=== PATIENT | male | born 1990 | race Caucasian/White ===

== ENCOUNTER 2017-04-02 10:47 | Inpatient (IN) | payer SELFPAY ==
[~2017-04-02] VITALS: Ht 182.9 cm; Wt 71.2 kg
[2017-04-02] VITALS (8 sets, daily range): BP systolic 110–121; BP diastolic 44–60; PULSE 105–128; RESP 16–26; O2SAT 98–100
--- NOTE | 2017-04-02 10:57 | ED.REPORT ---
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 He is a former IV drug user who last used 2 years ago. He denies any recent trauma. He has no history of similar symptoms. His partner who is in the room states that he has been finding evidence of IV drug use in his home recently such as a lot of dirty needles that are not easily explainable. The patient states the lee on his legs are caused by mosquitos although the family member does not have any of the same lee. Nursing Notes Stated Complaint: INFECTION ON RT FOOT Chief Complaint: General Complaint Nursing Notes Reviewed: Yes Allergies: Coded Allergies: No Known Allergies (Unverified , 04/02/17) Scheduled Fluticasone/Salmeterol (Advair Hfa 115-21 Mcg Inhaler) 12 Gm Hfa.aer.ad 1 PUFF IH BID Scheduled PRN Albuterol HFA (Proair HFA) 8.5 Gm Hfa.aer.ad 2 PUFFS INHALATION Q4H PRN PRN For Shortness of Breath General Time Seen by MD: 10:54 Chief Complaint Other (R ankle pain) Hx Obtained From: Patient Arrived By: Walk-in Onset Occurred: 2 days ago Symptom Duration: Since onset Location: : Ankle right Quality: Painful Severity: Current: Moderate Severity: Maximum: Moderate Similar Sx Previous: No Past Medical History Past Medical History Asthma IVDA last used 2016 Past Surgical History None reported Smoking History Unknown if Ever Smoker Social History Drug Use: In recovery, IV drugs Ambulatory Status Independent Review of Systems Musculoskeletal: Reports: Extremity pain, Joint pain Skin: Reports Rash, Reports Swelling Complete sys rev & neg: except as marked. Physical Exam Initial Vital Signs Vital Signs (First) Date Time Temp Pulse Resp B/P Pulse Ox O2 Delivery O2 Flow Rate FiO2 04/02/17 10:50 36.8 118 16 113/60 99 Room Air Initial VS: Reviewed, Vital signs abnormal Head / Eyes: Atraumatic, Normocephalic ENT: Mucous membranes moist, Conjunctiva normal, No scleral icterus Neck: Supple, Full range of motion Respiratory: Breath sounds normal, Clear to auscultation, No respiratory distress Abdomen / GI: Soft, Non-tender Neurologic: Alert, Oriented, Nonfocal Psychiatric: Mood/affect normal, Behavior normal, Normal thought content Lower Extremity / Pelvis / MS: No deformity, Neurologic intact, Vascular intact Tib/fib normal Ankle / Foot: No deformity, Neurologic intact, Vascular intact R ankle: Severe pain to touch Severe pain with ROM Diffusely swollen and erythematous Subacute abrasions over posterior ankle Base of ankle with minimal clear yellow discharge - sent for culture General/Constitutional: Awake, Alert, Cooperative, Not toxic appearing Distress / Hydration: Positive: Distress mild Appearance / Presentation: Positive: Ill appearing/not toxic, In pain, Uncomfortable Cardiovascular: Regular rhythm, Heart sounds NL, No murmurs Heart Rate / Rhythm: Positive: Tachycardia Interpretation & Diagnostics Interpretation & Diagnostics: US right ankle: No abscess - radiologist read pending Lab Results Interpretation Result Diagram: 04/02/17 1126 04/02/17 1126 Test 04/02/17 11:26 04/02/17 12:30 White Blood Count 24.4th/mm3 (3.8-10.1) Red Blood Count 3.76mil/mm3 (4.40-5.80) Hemoglobin 11.8g/dL (13.8-17.2) Hematocrit 33.6% (41.0-50.0) Mean Corpuscular Volume 89.4fL (81-100) Mean Corpuscular Hemoglobin 31.4pg (27.0-35.0) Mean Corpuscular Hemoglobin Concent 35.1% (32.0-37.0) Red Cell Distribution Width 13.8% (12.3-15.4) Platelet Count 265bil/L (150-400) Neutrophils (%) (Auto) 85% (40-74) Lymphocytes (%) (Auto) 3% (14-46) Monocytes (%) (Auto) 8% (4-12) Eosinophils (%) (Auto) 0% (0-5) Basophils (%) (Auto) 0% (0-3) Band Neutrophils % 4% (1-5) Erythrocyte Sedimentation Rate 63mm/hr (0-15) Sodium Level 127mEq/L (134-144) Potassium Level 4.1mEq/L (3.5-5.2) Chloride Level 88mEq/L (97-108) Carbon Dioxide Level 17mmol/L (18-29) Blood Urea Nitrogen 13mg/dL (6-20) Creatinine 0.48mg/dL (0.76-1.27) Estimat Glomerular Filtration Rate 226mL/min (>59) Glucose Level 115mg/dL (60-99) Osmolality 295 (275-300) Calcium Level 8.8mg/dL (8.5-10.1) Total Bilirubin 0.9mg/dL (0.0-1.2) Aspartate Amino Transf (AST/SGOT) 41U/L (0-50) Alanine Aminotransferase (ALT/SGPT) 51U/L (0-44) Alkaline Phosphatase 230U/L (25-150) C-Reactive Protein 23.2mg/dL (0.0-0.5) Total Protein 6.7g/dL (6.4-8.4) Albumin 2.9g/dL (3.4-5.0) Thyroid Stimulating Hormone (TSH) 0.400uIU/mL (0.450-4.500) Urine Color Yellow (YELLOW) Urine Appearance Clear (CLEAR,HAZY) Urine pH 6.0 (5.0-8.0) Urine Specific [place] 1.010 (1.003-1.035) Urine Protein 100mg/dL (NEG,TRACE) Urine Glucose (UA) Negativemg/dL (NEGATIVE) Urine Ketones Negativemg/dL (NEGATIVE) Urine Occult Blood Moderate (NEGATIVE) Urine Nitrite Negative (NEGATIVE) Urine Bilirubin Small (NEGATIVE) Urine Ictotest Pos (Negative) Urine Urobilinogen 4.0mg/dL (NORMAL) Urine Leukocyte Esterase Negative (NEGATIVE) Urine RBC 0-2/hpf (0-2) Urine WBC 0-5/hpf (0-5) Urine Epithelial Cells Occasional/hpf (NONE-MOD) Urine Crystals None seen (NONE SEEN) Urine Bacteria Few/hpf (NONE-FEW) Urine Hyaline Casts None/lpf (NONE) Urine Granular Casts None seen (NONE SEEN) Urine Waxy Casts None seen (NONE SEEN) Urine Red Blood Cell Casts None seen (NONE SEEN) Urine White Blood Cell Casts None seen (NONE SEEN) Urine Mucus None seen (None Seen) Urine Trichomonas None seen (NONE SEEN) Urine Yeast None (NONE SEEN) Urinalysis Comment None Urine Culture Reflexed Not indicated Hold Urine Received (Received) Lab Results Interpretation: Urine tox positive for: THC, methamphetamine, opiates, TCA ECG Interpretation ECG Interpretation: Sinus tachycardia rate 109 Early repol Time: 12:22 Interpreted by: ED physician Normal ECG Interpretation: No acute ischemic changes X-Ray Interpretation Xray Interpretation: IMPRESSION: Lateral soft tissue swelling. Dictated by: Real Magallanes M.D. on 04/02/2017 at 11:53 Approved by: Real Magallanes M.D. on 04/02/2017 at 11:59 X-Ray Ordered: Ankle right Interpretation / Wet Read by: Interpret - Radiologist Re-Eval/Medical Decision Med Decision/Clinical Course 26-year-old male history of IV drug use presenting with right ankle pain 4 days. No trauma. He has diffuse cellulitis and edema around his right ankle. There is range of motion tenderness. His white blood cell count is significantly elevated as well as his lactate. He denied any IV drug use. Last 2 years however his urine drug screen is positive for opiates and amphetamines. I discussed with orthopedics who recommended I discussed with podiatry. They will evaluate patient and determine the need for arthrocentesis. In the meantime we will admit on vancomycin and Zosyn with blood cultures sent. He is tachycardic otherwise vital signs stable. He was given 2 L normal saline. Admitted to hospitalist service. Re-Evaluation/Progress : Time of Eval: 11:10 Re-Evaluation/Progress Note: Pt rechecked. Informed pt of need for admission. Pt understands and agrees with plan for admission. All questions addressed. Consultation #1: Referral / Consult Name: Tyler Penn DO Consulted With: Orthopedic Call Returned at: 12:26 Baseball Coach: Agrees with eval, Agrees with plan Note: Will consult. Recommends IV antibiotics and podiatry consult. Consultation #2: Referral / Consult Name: Armando Mcdaniels DPM Call Returned at: 12:36 Baseball Coach: Agrees with eval, Agrees with plan Note: Podiatry will see pt today. Consultation #3: Referral / Consult Name: Lia Cox DO Consulted With: Hospitalist Call Returned at: 12:57 Baseball Coach: Will see patient, Agrees with eval, Agrees with plan, Accepts admit Counseled Regarding: Diagnosis, Lab results, Need for admission Discharge & Departure Impression: Primary Impression: Sepsis Sepsis type: sepsis due to unspecified organism Qualified Code: A41.9 - Sepsis, unspecified organism Additional Impressions: Cellulitis of right ankle Lactic acidosis Methamphetamine abuse Marijuana use Opioid abuse Disposition: ADMITTED TO HOSPITAL Discharge Condition All VS Reviewed: Yes Condition: Stable Referrals: Rakel Loomis (PCP) Scribe Attestation Portions of this note were transcribed by Dileep Campuzano. I, Dr. Randall personally performed the history, physical exam and medical decision-making; I reviewed and confirmed the accuracy of the information in the transcribed note. copies to: Rakel Loomis Ben M MD Apr 02, 2017 10:57 DILEEP CAMPUZANO Apr 02, 2017 11:04
[2017-04-02] MEDS ORDERED: 0.9% Sodium Chloride 1,000 ML IV ONE ×3 (11:08→16:15)
[2017-04-02] MEDS ORDERED: Ondansetron 2 mg/mL 2 mL Inj IVPUSH PRN ×2 (11:10→13:00)
[2017-04-02 11:44] LABS: EOSINOPHILS % (AUTO) 0 % (0-5)
[2017-04-02 11:47] LABS: BASOPHILS % (AUTO) 0 % (0-3); Mean Corpuscular Hemoglobin 31.4 pg (27.0-35.0); Mean Corpuscular Volume 89.4 fL (81-100); Platelet Count 265 bil/L (150-400)
--- NOTE | 2017-04-02 12:01 | DRSVH ---
PROCEDURE: X-RAY RIGHT ANKLE, MINIMUM THREE VIEWS ([id number]) INDICATIONS: R ankle infection r/o osteo TECHNIQUE: 3 views of the ankle were acquired. COMPARISON: None. FINDINGS: Bones: No fractures or dislocations. Ankle mortise is normally aligned. No suspicious bony lesions . Soft tissues: No tibiotalar joint effusion. Achilles tendon appears normal. Lateral soft tissue sw elling. IMPRESSION: Lateral soft tissue swelling. Dictated by: Real Magallanes M.D. on 04/02/2017 at 11:53 Approved by: Real Magallanes M.D. on 04/02/2017 at 11:59
[2017-04-02] MEDS ORDERED: Piperacillin-Tazo 3.375 Gm Inj 3.375 GM in Dextrose 5% Minibag Plus 50 ML IV ONE (12:25)
[2017-04-02] MEDS ORDERED: Vancomycin Dose per Pharmacist XX ONE (12:25)
[2017-04-02 12:37] LABS: MONOCYTES % (AUTO) 8 % (4-12); NEUTROPHILS % (AUTO) 85 % (40-74)
[2017-04-02] MEDS ORDERED: Vancomycin Inj 1,500 MG in 0.9% Sodium Chloride 500 ML IV ONE (12:50)
[2017-04-02] MEDS ORDERED: Alum-Mag Hydrox-Simeth 30 mL Suspension PO PRN (13:00)
[2017-04-02] MEDS ORDERED: Polyethylene Glycol (PEG) 17 Gm Powder PO PRN (13:25)
[2017-04-02] MEDS ORDERED: FLUT12AE4 IH (13:35)
[2017-04-02] MEDS ORDERED: ALBU8.5H2 INHALATION (13:35)
--- NOTE | 2017-04-02 13:43 | DRSVH ---
PROCEDURE: US EXTREMITY SONOGRAM LIMITED ([id number]) INDICATIONS: R ankle swelling r/o abscess TECHNIQUE: Real-time scanning was performed of the right ankle, with image documentation. COMPARISON: None. FINDINGS: Mild edema and no visualized fluid collection. IMPRESSION: Mild edema. Dictated by: Td OSBORN Interpreted: Real Magallanes MD on 04/02/2017 at 12:04 Approved by: Real Magallanes M.D. on 04/02/2017 at 13:40
[2017-04-02 13:57] LABS: APPEARANCE,URINE CLEAR (CLEAR,HAZY); COLOR,URINE YELLOW (YELLOW)
[2017-04-02 13:58] LABS: OCCULT BLOOD,URINE MODERATE (NEGATIVE)
[2017-04-02 13:59] LABS: ICTOTEST,URINE POS (Negative)
--- NOTE | 2017-04-02 16:57 | PCM.CONPHA ---
Subjective Requesting Provider: Lia Cox DO Reason for Pharmacy Consult: Vancomycin Dosing Assessment/Plan Assessment/Plan Pharmacy to dose vancomycin for cellulitis in IVDA with goal trough 10-15: Ht 72 inches Wt 70.4K Creatinine=0.48 (0.6 used for calculations) Estimated creatinine tdlnbquaj=394hc/min ([facility]) WBC=24.4 LA=5.3 CRP 23.2 TMAX=37.4 The patient received Vancomycin 1500mg IV at 1330 in the ER. Subsequent dosing will be vancomycin 1250mg IV q 8 hours beginning at 2130. A trough has been ordered for 04/02/17 at 1230 prior to the 4th dose. The floor pharmacist will evaluate this level and adjust accordingly. Roxie Edmonds [facility] ED Apr 02, 2017 16:57
[2017-04-02 17:21] LABS: OSMOLALITY, URINE 445 mOs/kH2O (250-1200)
[2017-04-02] MEDS ORDERED: Lidocaine 2% 20 mg/mL 5 mL Cardiac Syringe ONE ×2 (17:29→17:36)
--- NOTE | 2017-04-02 17:37 | PCM.CHPPOD ---
Subjective Date of service Apr 02, 2017 History of Present Illness 26 year old male admitted to [facility] with cellulitis and pain of the right posterior ankle. patient denies trauma, states that he has had several mosquito bites to his ankle and leg which he has been itching recently. Patient states that this has been occurring for the past three days and progressively worsening. he complains of severe pain to his right ankle. xray taken in the ED reveals possible effusion of the posterior ankle. MRI was attempted however patient had a panic attack and was unable to complete the exam. Allergy Allergies: Coded Allergies: No Known Allergies (Unverified , 04/02/17) Medications Albuterol HFA (Proair HFA) 8.5 Gm Hfa.aer.ad 2 PUFFS INHALATION Q4H PRN PRN For Shortness of Breath Fluticasone/Salmeterol (Advair Hfa 115-21 Mcg Inhaler) 12 Gm Hfa.aer.ad 1 PUFF IH BID Past Medical History Surgeries: No Medical History: Surgical History: Social History Hx Alcohol Use: Yes Alcoholic Drinks Per Day: states drinks 1/5 daily Hx Substance Use: Yes (IV heroin, meth) Smoking Status: Current Every Day Smoker Podiatry Consult Exam Vital Signs Vital Sign - Last Date Time Temp Pulse Resp B/P Pulse Ox O2 Delivery O2 Flow Rate FiO2 04/02/17 16:44 37.0 105 16 117/59 100 Room Air Result Diagram: 04/02/17 1126 04/02/17 1126 Lab Test 04/02/17 11:26 04/02/17 12:30 04/02/17 13:28 04/02/17 15:43 White Blood Count 24.4th/mm3 (3.8-10.1) Red Blood Count 3.76mil/mm3 (4.40-5.80) Hemoglobin 11.8g/dL (13.8-17.2) Hematocrit 33.6% (41.0-50.0) Mean Corpuscular Volume 89.4fL (81-100) Mean Corpuscular Hemoglobin 31.4pg (27.0-35.0) Mean Corpuscular Hemoglobin Concent 35.1% (32.0-37.0) Red Cell Distribution Width 13.8% (12.3-15.4) Platelet Count 265bil/L (150-400) Neutrophils (%) (Auto) 85% (40-74) Lymphocytes (%) (Auto) 3% (14-46) Monocytes (%) (Auto) 8% (4-12) Eosinophils (%) (Auto) 0% (0-5) Basophils (%) (Auto) 0% (0-3) Band Neutrophils % 4% (1-5) Erythrocyte Sedimentation Rate 63mm/hr (0-15) Sodium Level 127mEq/L (134-144) Potassium Level 4.1mEq/L (3.5-5.2) Chloride Level 88mEq/L (97-108) Carbon Dioxide Level 17mmol/L (18-29) Blood Urea Nitrogen 13mg/dL (6-20) Creatinine 0.48mg/dL (0.76-1.27) Estimat Glomerular Filtration Rate 226mL/min (>59) Glucose Level 115mg/dL (60-99) Osmolality 295 (275-300) Calcium Level 8.8mg/dL (8.5-10.1) Total Bilirubin 0.9mg/dL (0.0-1.2) Aspartate Amino Transf (AST/SGOT) 41U/L (0-50) Alanine Aminotransferase (ALT/SGPT) 51U/L (0-44) Alkaline Phosphatase 230U/L (25-150) C-Reactive Protein 23.2mg/dL (0.0-0.5) Total Protein 6.7g/dL (6.4-8.4) Albumin 2.9g/dL (3.4-5.0) Thyroid Stimulating Hormone (TSH) 0.400uIU/mL (0.450-4.500) Urine Color Yellow (YELLOW) Urine Appearance Clear (CLEAR,HAZY) Urine pH 6.0 (5.0-8.0) Urine Specific [place] 1.010 (1.003-1.035) Urine Protein 100mg/dL (NEG,TRACE) Urine Glucose (UA) Negativemg/dL (NEGATIVE) Urine Ketones Negativemg/dL (NEGATIVE) Urine Occult Blood Moderate (NEGATIVE) Urine Nitrite Negative (NEGATIVE) Urine Bilirubin Small (NEGATIVE) Urine Ictotest Pos (Negative) Urine Urobilinogen 4.0mg/dL (NORMAL) Urine Leukocyte Esterase Negative (NEGATIVE) Urine RBC 0-2/hpf (0-2) Urine WBC 0-5/hpf (0-5) Urine Epithelial Cells Occasional/hpf (NONE-MOD) Urine Crystals None seen (NONE SEEN) Urine Bacteria Few/hpf (NONE-FEW) Urine Hyaline Casts None/lpf (NONE) Urine Granular Casts None seen (NONE SEEN) Urine Waxy Casts None seen (NONE SEEN) Urine Red Blood Cell Casts None seen (NONE SEEN) Urine White Blood Cell Casts None seen (NONE SEEN) Urine Mucus None seen (None Seen) Urine Trichomonas None seen (NONE SEEN) Urine Yeast None (NONE SEEN) Urinalysis Comment None Urine Culture Reflexed Not indicated Hold Urine Received (Received) Urine Osmolality 445mOs/kH2O (250-1200) Lactic Acid Level 5.1mmol/L (0.4-2.0) Exam General: Alert, Oriented X3, Cooperative, Mild Distress Neuro: Strength at 5/5 x4 ext, Sensation Intact Lower Extremities: Right: Edema localized Extremity warm Lower Extremity Pulses: Palpable: Right Dorsalis Pedis Right Posterior Tibal Podiatry WOUND : Wound Location/Description severe edema and erythema of the posterior right ankle with severe tenderness to palpation, fluctuance noted deep to the achilles tendon within Kegers triangle. no open ulcer noted. multiple superficial excoriations consistent with bug bites noted. Assessment & Plan Assessment abscess and cellulitis of the right posterior ankle Problems: Plan Detailed evaluation preformed at bedside. Patient provided verbal consent for bedside incision and drainage. 6 ml 2% lidocaine plain was infiltrated to the right posterior medial ankle and kegers triangle. A 2 cm stab incision was made to the right medial posterior ankle and approximately 3ml of purulent discharge was noted. wound culture taken. wound flushed with normal saline and packed with 1/4 inch iodoform gauze dressed with kerlix, 4x4 gauze and a loosely applied yadi wrap. non weight bearing right LE. plan for OR tomorrow AM for incision and drainage, please keep NPO after midnight. continue broad spectrum antibiotics. podiatry will follow daily. Armando Mcdaniels DPM Apr 02, 2017 17:37
[2017-04-02] MEDS: Ketorolac 15 mg/mL Inj IVPUSH PRN (18:05)
[2017-04-02] MEDS: Heparin 5,000 Unit/mL Inj SUBQ SCH (18:05)
[2017-04-02] MEDS: 0.9% Sodium Chloride 1,000 ML IV SCH ×2 (18:06→21:06)
--- NOTE | 2017-04-02 19:41 | NUR ---
ADMIT PT comes to the floor at 1545. He is awake, alert and oriented. RA, SL and in no acute distress. One liter of NS was given wide open and then NS at 150/hr started after that. Telemetry SR to ST upon admit to the floor. MRI Shortly after coming pt was taken to MRI-got a call from them that pt is having anxiety issues due to clastrophobia, called and received orders for IV ativan from DR. Cox, but by that time pt was already brought back to his room. Pt agreeable to one more attempt to try MRI with iv ativan given before, but he does not guarantee he will "not freak out". PODIATRY Podiatry here to try to drain an abscess on rt. ankle-after evaluation, decision was made to take the pt to surgery for I&D in am, pt aware of the plan and of NPO after midnight status.
--- NOTE | 2017-04-02 19:45 | PCM.HPMED ---
Subjective Date of Service Apr 02, 2017 Primary Provider: Admitting Physician: Lia Cox DO Primary Care Physician: Breanna Attending Physician: Lia Cox DO Admit Status: From the Emergency Department, Admit to Blue Team Chief Complaint: Swollen right ankle History of Present Illness: 26-year-old thin white male with past medical history of asthma, IV drug use for 2 months two years ago this presenting to the ER with swollen right ankle. He has severe erythema, tenderness associated with it. He states that it has been ongoing for 3 days and getting worse. He cannot walk at home and he using crutches to get around. He states that he had no fevers or chills. His appetite is good, he has a little bit of a headache. He states that after receiving pain medication in the ER his leg pain has come down to 6 out of 10. He denies anxiety chest pain, dyspnea, GI's problems, urinary symptoms, dizziness. He has several excoriations and healed up lee on both of his lower legs. He states that this is from fleas and mosquitoes after he camped. He also has a spot on the lateral achilles area of his right foot where a pruritic lesion can be seen. Patient denies any infections like this before. He also denies continued use of IV drugs. He does admit to smoking meth and marijuana recently but denies IV drug use of any kind. He is endorsing drinking a fifth of vodka daily. Because of pain in his leg he drank more, he drank a pint of alcoholic, beverage today. He is endorsing increased urination. In the ER urine drug screen showed positive THC, met, TCA. Ultrasound was performed and was negative for abscess. X-ray of the ankle showed no concern for osteomyelitis but showed soft tissue swelling. Lactic acid was elevated at 5.3, leukocytosis is 24K sodium is low at 127 patient was given Vanco and Zosyn. EKG showed sinus tach. Blood cultures by 2 are drawn, and wound cultures are collected and podiatric was notified. Patient is admitted to the blue team for sepsis secondary to cellulitis of right ankle Review of Systems: Complete review of systems performed, pertinent positives and negatives per history of present illness, all other systems reviewed and are negative. Allergies Coded Allergies: No Known Allergies (Unverified , 04/02/17) Home Medications Patient takes no medications PMH Asthma, past IV drug use with heroin, current meth/. Cannabinoid user Surgical History None Family History Dad has alcoholic cirrhosis, mom is healthy Social History Occupation: unemployed Hx Alcohol Use: Yes (a 5th of vodka daily) Alcoholic Drinks Per Day: states drinks 1/5 daily Hx Substance Use: Yes (IV heroin) Smoking Status: Current Every Day Smoker (half pack per day) Living Arrangement: with Family () Additional Information Patient is a high school grad, currently unemployed Exam Vital Signs Vital Sign - Last Date Time Temp Pulse Resp B/P Pulse Ox O2 Delivery O2 Flow Rate FiO2 04/02/17 12:54 37.4 119 22 121/58 98 Room Air Exam General: No acute distress, thin appearing,, appropriately interactive HEENT: Normocephalic, atraumatic. External ears without defect. Pupils equal, round, and reactive to light and accommodation. Anicteric sclerae, moist conjunctivae, and no lid lag. Oropharynx free of erythema and cobble stoning with moist mucosa. Neck: Supple with full range of motion. No jugular venous distension. No bruits. No lymphadenopathy or thyromegaly. Cardiovascular: Tachycardic and normal rhythm with no murmurs, rubs, or gallops appreciated Pulmonary: Clear to auscultation bilaterally with no crackles, wheezes, or rhonchi. Normal respiratory effort with no use of accessory muscles. Abdomen: Flat nontender abdomen. Bowel tones present. Soft, mildly tender diffusely, nondistended. No hepatosplenomegaly or masses appreciated. Extremities: No clubbing, cyanosis, edema, or lymphadenopathy appreciated. Skin: Normal temperature, turgor, and texture; . Swollen right lower extremity. Swollen ankle joint also erythema and swelling spreading proximally into his gastroc area as well as distally into the foot. Tenderness to palpation. 2 cm pustular lesion lateral to right Achilles tendon Neurological: No focal deficits, particularly flex 1+ and right, 0 and left. Altered sensation in the right lower extremity Psychiatric: Normal mood and affect. Alert and oriented to person, place, and time. Lab and Diagnostics Result Diagram: 04/02/17 1126 04/02/17 1126 X-Rays, CTs and MRIs I have personally and independently reviewed the x-ray of ankle. Positive for soft tissue swelling no osteomyelitis Ultrasound of right lower extremity showed no abscess Assessment & Plan This is a 26-year-old white male with past medical history of IV drug use currently presenting to the ER with suspicious appearing rate ankle swelling. Sepsis secondary to cellulitis of right ankle, present on admission -- Meets sepsis criteria secondary to tachycardia, leukocytosis, cellulitis -- Continue vancomycin and Zosyn started in the ER -- MRSA nasal swab, Aso titers -- MRA of the right foot, right ankle, right tib-fib, Ativan 1 time dose 0.5 mg IV for anxiety prior to procedure -- Blood cultures and wound cultures were done in the ER. Follow the cultures -- Dr. Tyler Penn from orthopedic surgery is contacted, he asked for the patient to be kept nothing by mouth overnight. Dr. Penn later told me later that patient was undergoing IND by Dr. Mcdaniels and Dr. Truong, they able to do this procedure better anyway as per Dr. Penn -- Infectious disease consult is placed ( they have asked for aso levels) they will see the patient tomorrow -- TTE will be ordered -- IV ketorolac, IV morphine, oxycodone for pain control -- The third liter boluses given on the floor, normal saline running at 150 mL per hour -- Lactic acidosis at admission 5.3, we will hydrate him and follow with every 2 hour checks -- ESR and CRP levels are ordered IV drug use, chronic unknown current status -- Patient denies current use, his partner apparently is not so sure, ER documentation describes needles in the house Acute hyponatremia present on admission: -- Patient is endorsing drinking a lot and urinating a lot prior to arrival -- Possibly from dehydration -- IV fluids as above -- Hyponatremia workup that including urine pseudomonas modality, urine sodium, TSH, cortisol level ordered -- AM BMP Acute tachycardia present on admission -- Likely secondary to sepsis and dehydration -- IV fluid hydration as above -- Telemetry -- Echocardiogram in the a.m. Chronic tobacco. Abuse, present on admission -- Nicotine patches are ordered Alcohol abuse chronic, present on admission active -- [facility] protocol -- We will request the nursing notify M.D. personnel clerks supervisor if patient triggers score Pain Evaluation: Pain not Controlled Resuscitation Status: CPR: Attempt Resuscitation Time spent 45 minutes Lia Cox DO Apr 02, 2017 13:28
--- NOTE | 2017-04-02 20:14 | NUR ---
Refused MRI Pt refused to have his MRI done tonight. "can we do it tomorrow?" notified. No further orders. Addendum: 04/02/17 at 2020 by ABELARDO AMIN RN call back and order for MRI to be held tomorrow. Continuing care.
[2017-04-02] MEDS: Piperacillin-Tazo 3.375 Gm Inj 3.375 GM in Dextrose 5% Minibag Plus 50 ML IV SCH (20:28)
[2017-04-02] MEDS: Vancomycin Inj 1,250 MG in 0.9% Sodium Chloride 250 ML IV SCH (20:28)
--- NOTE | 2017-04-02 21:18 | NUR ---
[facility] CIWA of 21. Pt has been nauseated. observed restlessness, fever. nauseated and having chest discomfort. IVF and Abx running as ordered. Continuing to monitor. Addendum: 04/03/17 at 0219 by ABELARDO AMIN RN Diazepam administered per CIWA protocol. Current CIWA score 6. Pt is currently sleeping. Denies chest pain, sob, n/v or abd discomfort.
[2017-04-03] VITALS (18 sets, daily range): BP systolic 112–142; BP diastolic 64–78; PULSE 94–123; RESP 17–32; O2SAT 97–100
[2017-04-03] MEDS: Heparin 5,000 Unit/mL Inj SUBQ SCH ×3 (00:17→16:31)
[2017-04-03] MEDS: Piperacillin-Tazo 3.375 Gm Inj 3.375 GM in Dextrose 5% Minibag Plus 50 ML IV SCH ×2 (00:18→08:25)
[2017-04-03] MEDS: 0.9% Sodium Chloride 1,000 ML IV SCH ×4 (04:25→20:26)
[2017-04-03] MEDS: Vancomycin Inj 1,250 MG in 0.9% Sodium Chloride 250 ML IV SCH (04:26)
[2017-04-03] MEDS: Ketorolac 15 mg/mL Inj IVPUSH PRN (04:26)
[2017-04-03 07:12] LABS: BASOPHILS % (AUTO) 0.1 % (0-3)
[2017-04-03 07:29] LABS: EOSINOPHILS % (AUTO) 0.2 % (0-5); MONOCYTES % (AUTO) 10.3 % (4-12); Mean Corpuscular Hemoglobin 30.8 pg (27.0-35.0); Mean Corpuscular Volume 89.3 fL (81-100); NEUTROPHILS % (AUTO) 83.5 % (40-74); Platelet Count 242 bil/L (150-400)
[2017-04-03 08:02] LABS: ERYTHROCYTE SEDIMENTATION RATE 55 mm/hr (0-15)
[2017-04-03] MEDS ORDERED: MetoCLOpramide 5 mg/mL 2 mL Inj ONE (08:28)
[2017-04-03] MEDS ORDERED: HYDROmorphone 1 mg/mL Inj ONE (08:28)
[2017-04-03] MEDS ORDERED: Propofol 10,000 mCg/mL 20 mL Inj ONE (08:28)
[2017-04-03] MEDS ORDERED: fentaNYL-PF 50 mCg/mL 2 mL Inj ONE (08:28)
[2017-04-03] MEDS ORDERED: Ondansetron 2 mg/mL 2 mL Inj ONE (08:28)
[2017-04-03] MEDS ORDERED: Vancomycin Dose per Pharmacist XX SCH (08:30)
[2017-04-03] MEDS ORDERED: Multivit-Miner-Folic Acid-Iron Tablet PO SCH (08:30)
[2017-04-03] MEDS ORDERED: Albuterol 2.5 mg/3 mL Inhalation Solution NEB PRN (10:25)
[2017-04-03] MEDS ORDERED: cefTRIAXone Inj 2,000 MG in Dextrose 5% Minibag Plus 50 ML IV SCH (10:55)
[2017-04-03] MEDS ORDERED: Clindamycin Inj 900 MG in IV Premix 1 EACH IV STA (10:58)
--- NOTE | 2017-04-03 11:10 | NUR ---
off unit Pt is off unit to OR. Administered 5mg oxycodone pre transferred. Notified tele. Pt left on gurney with ABX and fluid running. at bedside
--- NOTE | 2017-04-03 11:18 | PCM.HPANE ---
Patient Data Date of Service: Apr 03, 2017 Surgeon Admitting Provider:Lia Cox DO Attending Provider:Lia Cox DO Primary Care Physician:Nopcp Other Provider: Reason for Visit Ams,Uti Ht/WT & BMI Height (Feet): 6 Height (Inches): 0.00 Weight (Kilograms): 71.800 Body Mass Index 21.44 Allergies Coded Allergies: No Known Allergies (Unverified , 04/02/17) Past Anesthesia History Anesthesia History: Denies:: Anesthesia Reactions Diabetes History Hx Diabetes?: No MRSA MRSA: No Medications Hypertension Medication: No Home Meds Incl Beta Anca: No Reported Medications Albuterol HFA (Proair HFA)8.5 Gm Hfa.aer.ad2 Puffs INHALATION Q4H PRN For Shortness of Breath 04/02/17 Fluticasone/Salmeterol (Advair Hfa 115-21 Mcg Inhaler)12 Gm Hfa.aer.ad1 Puff IH BID 04/02/17 History History of ENT Problems?: No HEENT History: Denies:: Abnormal Airway Difficult Intubation TMJ Denture Type: None Teeth Condition: Within Normal Limits Hx of Heart Problems?: No Cardiovascular History: Denies:: Chest Pain Hx of Respiratory Problem?: Yes Respiratory History: Positive for:: Asthma (using rescue inhaler daily) Pneumonia Other Resp Pertinent History: wooping cough Hx Neurologic Problems?: No Neurological History: Denies:: CVA Hx of GI Problems?: No Hx of Problems?: No Male Hx: Denies:: Prostate Problems Scrotal Mass Testicular Surgery Hx Musculoskeletal Problems?: No Hx of Psycho/Social Problems?: No Psycho Social History: Positive for:: Anxiety Hx Depression Denies:: Bipolar Disorder Suicide Attempt Hx Surgeries?: No Hx Any Other Health Problems?: No Other History: Denies:: Cancer Hospitalization Thyroid Disease History Blood Transfusions: Positive for:: Accept Blood Products? Denies:: Blood Transfusions Hx Diabetes: No Occupation: unemployed Hx Alcohol Use: Yes (a 5th of vodka daily)Alcoholic Drinks Per Day: states drinks 1/5 daily Hx Substance Use: Yes (IV heroin) Smoking Status: Current Every Day Smoker (half pack per day) Have You Smoked inLast 12 mo: YesApprox How Many Cigarettes/day: 1/2 pack per day Stop/Bang Treated for Sleep Apnea?: No Do You Have a CPAP Machine?: No S-Snoring: Do You Snore Loudly: No T-Tired: feel tired, fatigued: No O-Obsered: Observed not breath: No P-Blood Pressure: treated: No B- Body Mass Index > 35 kg/m2: No A- Age over 50: No N- Neck Large Circumference: No G- Gender Male: Yes KORY Total Score: 1 KORY Risk Assessment: Low Risk, <3 Yes Risk Assessment Category Category 1A: Patient has history of documented sleep apnea, and HAS NOT received any narcotic, sedative or anesthesia administration during this stay. Category 1B: Patient has history of documented sleep apnea, and HAS received any narcotic , sedative or anesthesia administration during this stay Category 2: Patient has SUSPECTED Obstructive Sleep Apnea, and HAS received any narcotic , sedative or anesthesia administration during this stay. Category 3: Patient has SUSPECTED Obstructive Sleep Apnea and HAS NOT received narcotic, sedative or anesthesia administration during this stay. Category 4: Outpatient in Procedural Areas with known sleep apnea or who screen positive for High Risk via the STOP/BANG questionnaire. Exam Exam Vital Signs Vital Signs Date Time Temp Pulse Resp B/P Pulse Ox O2 Delivery O2 Flow Rate FiO2 04/03/17 10:59 113 04/03/17 09:09 36.7 109 20 112/65 100 Room Air 04/03/17 06:15 114 04/03/17 04:21 36.6 123 22 116/64 99 Room Air General Appearance: Alert, Oriented X3, Cooperative, Moderate Distress ( anxious about procedure; likely some withdrawal as well) HEENT/AIRWAY: MP 1, Neck Movement (from), Mouth Opening (3 fb, narrow OP) Lungs: Clear to Auscultation, Normal Air Movement Heart: No Murmurs/Rubs/Gallops, Other (tachycardic, regular) Meds/Labs/Diagnostics Admission Meds Current Medications Sodium Chloride 1,000 ml @ 0 mls/hr Q0M ONCE IV Last administered on 04/02/17 12:29; Start 04/02/17 at 12:22; Stop 04/02/17 at 12:24; Status DC Piperacillin Sod/ Tazobactam Sod/ Dextrose/Water (Zosyn 3.375 Gm Inj/D5W Minibag Plus) 50 ml @ 100 mls/hr ONCE ONCE IV Last administered on 04/02/17 12:53; Start 04/02/17 at 12:25; Stop 04/03/17 at 10:56; Status DC Pharmacy Consult 1 ea 1 ea ONCE ONCE XX Last administered on 04/02/17 13:24; Start 04/02/17 at 12:25; Stop 04/03/17 at 10:56; Status DC Vancomycin HCl 1500 mg/Sodium Chloride 500 ml @ 333.333 mls/hr ONCE ONCE IV Last administered on 04/02/17 13:24; Start 04/02/17 at 12:50; Stop 04/03/17 at 10 :56; Status DC Sodium Chloride 1,000 ml @ 100 mls/hr Q10H IV Last administered on 04/03/17 04:25; Start 04/02/17 at 13:23 Sodium Chloride 1,000 ml @ 0 mls/hr Q0M ONCE IV Last administered on 04/02/17 16:15; Start 04/02/17 at 16:15; Stop 04/02/17 at 16:24; Status DC Piperacillin Sod/ Tazobactam Sod/ Dextrose/Water (Zosyn 3.375 Gm Inj/D5W Minibag Plus) 50 ml @ 12.5 mls/hr Q8 IV Last administered on 04/03/17 08:25; Start 04/02/17 at 16:30; Stop 04/03/17 at 10:56; Status DC Heparin Sodium (Porcine) 5000 unit 5,000 unit Q8 SUBQ Last administered on 04/03 00:17; Start 04/02/17 at 16:35 Vancomycin HCl/ Sodium Chloride (Vancocin Inj/ Normal Saline) 250 ml @ 166.667 mls/hr Q8H IV Last administered on 04/03/17 04:26; Start 04/02/17 at 20:30; Stop 04/03/17 at 10:56; Status DC Thiamine HCl (Vitamin B1) 100 mg DAILY PO Last administered on 04/02/17 18:05; Start 04/02/17 at 17:26 Lidocaine HCl (Xylocaine 2% Inj) 100 mg STK-MED ONCE .ROUTE Last administered on 04/02/17 17:30; Start 04/02/17 at 17:36; Stop 04/02/17 at 17:38; Status DC Nicotine (Nicoderm 14 mg/ 24 Hr Patch) 1 patch DAILY TOPICAL Last administered on 04/02/17t 19:49; Start 04/02/17 at 19:39 Labs Test 04/02/17 11:26 04/02/17 12:30 04/02/17 13:28 04/02/17 15:43 Band Neutrophils % 4% (1-5) Osmolality 295 (275-300) Thyroid Stimulating Hormone (TSH) 0.400uIU/mL (0.450-4.500) Streptozyme 45.0IU/mL (0.0-200.0) Urine Color Yellow (YELLOW) Urine Appearance Clear (CLEAR,HAZY) Urine pH 6.0 (5.0-8.0) Urine Specific Holloway 1.010 (1.003-1.035) Urine Protein 100mg/dL (NEG,TRACE) Urine Glucose (UA) Negativemg/dL (NEGATIVE) Urine Ketones Negativemg/dL (NEGATIVE) Urine Occult Blood Moderate (NEGATIVE) Urine Nitrite Negative (NEGATIVE) Urine Bilirubin Small (NEGATIVE) Urine Ictotest Pos (Negative) Urine Urobilinogen 4.0mg/dL (NORMAL) Urine Leukocyte Esterase Negative (NEGATIVE) Urine RBC 0-2/hpf (0-2) Urine WBC 0-5/hpf (0-5) Urine Epithelial Cells Occasional/hpf (NONE-MOD) Urine Crystals None seen (NONE SEEN) Urine Bacteria Few/hpf (NONE-FEW) Urine Hyaline Casts None/lpf (NONE) Urine Granular Casts None seen (NONE SEEN) Urine Waxy Casts None seen (NONE SEEN) Urine Red Blood Cell Casts None seen (NONE SEEN) Urine White Blood Cell Casts None seen (NONE SEEN) Urine Mucus None seen (None Seen) Urine Trichomonas None seen (NONE SEEN) Urine Yeast None (NONE SEEN) Urinalysis Comment None Urine Culture Reflexed Not indicated Hold Urine Received (Received) Urine Osmolality 445mOs/kH2O (250-1200) Urine Random Sodium < 10mEq/L Cortisol 16.8ug/dL (.) Test 04/03/17 00:13 04/03/17 06:44 Lactic Acid Level 1.5mmol/L (0.4-2.0) White Blood Count 16.4th/mm3 (3.8-10.1) Red Blood Count 3.54mil/mm3 (4.40-5.80) Hemoglobin 10.9g/dL (13.8-17.2) Hematocrit 31.6% (41.0-50.0) Mean Corpuscular Volume 89.3fL (81-100) Mean Corpuscular Hemoglobin 30.8pg (27.0-35.0) Mean Corpuscular Hemoglobin Concent 34.5% (32.0-37.0) Red Cell Distribution Width 13.8% (12.3-15.4) Platelet Count 242bil/L (150-400) Neutrophils (%) (Auto) 83.5% (40-74) Lymphocytes (%) (Auto) 5.3% (14-46) Monocytes (%) (Auto) 10.3% (4-12) Eosinophils (%) (Auto) 0.2% (0-5) Basophils (%) (Auto) 0.1% (0-3) Erythrocyte Sedimentation Rate 55mm/hr (0-15) Sodium Level 133mEq/L (134-144) Potassium Level 3.8mEq/L (3.5-5.2) Chloride Level 100mEq/L (97-108) Carbon Dioxide Level 20mmol/L (18-29) Blood Urea Nitrogen 19mg/dL (6-20) Creatinine 0.62mg/dL (0.76-1.27) Estimat Glomerular Filtration Rate 168mL/min (>59) Glucose Level 113mg/dL (60-99) Calcium Level 7.9mg/dL (8.5-10.1) Total Bilirubin 1.3mg/dL (0.0-1.2) Aspartate Amino Transf (AST/SGOT) 28U/L (0-50) Alanine Aminotransferase (ALT/SGPT) 41U/L (0-44) Alkaline Phosphatase 207U/L (25-150) C-Reactive Protein 17.1mg/dL (0.0-0.5) Total Protein 4.8g/dL (6.4-8.4) Albumin 2.3g/dL (3.4-5.0) Plan Impression Patient chart reviewed, patient interviewed and anesthestic plan with risks, benefits, and alternatives discussed, and informed consent obtained. NPO per Anesth. Guidelines: Yes ASA Physical Status: ASA2 Mod Systemic Disease Anesthetic Plan: GA Bene/Risks/Altern/Consents: Yes HP Complete Prior to Induction: Yes Zak Mcnally MD Apr 03, 2017 11:18
[2017-04-03] MEDS ORDERED: Lactated Ringer's 1,000 ML IV ONE (11:29)
[2017-04-03] MEDS ORDERED: Gentamicin 40 mg/mL 2 mL Inj IRRIGATION ONE ×2 (12:00)
[2017-04-03] MEDS ORDERED: Bupivacaine-MPF 0.5% W/EPI 30 mL Inj INFILTRATE ONE (12:00)
--- NOTE | 2017-04-03 12:20 | CONS ---
"[address] [address] CONSULTATION REPORT PATIENT: SONJA BETTENCOURT : 1990 MR#: [id number] ADMIT: 04/02/2017 JOB ID: [id number] DATE OF SERVICE: 04/03/2017 INFECTIOUS DISEASE CONSULT: I thank Dr. Lia Cox for this timely consult. REASON FOR CONSULTATION: Severe right ankle abscess/infection. HISTORY OF PRESENT ILLNESS: The patient is a 26-year-old gentleman who has a past history of injection drug use but states he has not done any recently and further denies ever injecting below the knees. He has told various examiners that his last intravenous injection was a year or two ago. In any event, the patient reports that starting on or about March 30 he developed fairly sudden onset of tenderness around his distal Achilles tendon in the back of his ankle. This rapidly became so painful that he really could not walk, and he started to get around using crutches. At about the same time, he had the onset of this severe pain in his right ankle. He noticed the swelling in his right groin which subsequently resolved by itself. He denies fever or chills associated with this rapidly progressive right posterior ankle process, though he does state that he had a bit of a headache, as well as a bit of nausea and some diarrhea, in association with this ankle pain. He has also noticed a little bit of dry cough and some mild shortness of breath in association with this acute illness. He states that he his ankles have been bitten by mosquitoes and fleas & ~ & ~& ^&\\^&~ ^^&~ & |^&~ & ~\\\\|^^&\\^ & ~ ^\\& ~ \\ & ~ ^ | & & & & & & & ~ ~&~\\^ &|& ~^ &^ ~^ ~\\^^ & & ^ ~\\\\&^ & &"
--- NOTE | 2017-04-03 12:23 | DRSVH ---
[facility] [address] [place] [address] Echocardiogram Report Name: SONJA BETTENCOURT DStudy Date: 04/03/2017 Height: 72 in Hospital Exam Location: [facility] Weight: 158 lb Gender: Male BSA: 1.9 m2 : 1990 Age: 26 yrs BP: 116/64 m mHg Reason For Study: TACHYCARDIA Ordering Physician: Performed By: Elli Ashford Referring Physician: ALETHA BURTON Interpretation Summary The left ventricle is normal in size. The left ventricular ejection fraction is normal. The ejection fraction is estimated to be 60-65%. There are no focal wall motion abnormalities. The right ventricle is borderline dilated. The right ventricular systolic function is normal. The right ventricular systolic pressure is estimated at least 43 mmHg assuming a right atrial pressure of 8 mm Hg. The left atrium is moderately dilated. The right atrium is moderate to severely dilated. There is no significant valvular heart disease. The aortic root is normal size. There is a trace loculated pericardial effusion. Procedure: A two-dimensional transthoracic echocardiogram with color flow and Doppler was performed. The study quality was technically good. There is no prior echocardiogram noted for this patient. The patient was in sinus tachycardia with heart rates between 107 and 117 bpm during the exam. Left Ventricle: The left ventricle is normal in size. There is mild asymmetric left ventricular hypertrophy. A false chord is noted (normal variant). Spontaneous contrast seen in LV. The left ventricular ejection fraction is normal. The ejection fraction is estimated to be 60-65%. There are no focal wall motion abnormalities. Assessment of diastolic parameters indicates normal left ventricular diastolic function and normal filling pressures. Right Ventricle: The right ventricle is borderline dilated. The right ventricular systolic function is normal. Atria: The left atrium is moderately dilated. The right atrium is moderate to severely dilated. There is no Doppler evidence for an interatrial shunt. Mitral Valve: The mitral valve is normal. There is no mitral regurgitation. Aortic Valve: The aortic valve is normal in structure and function. No aortic regurgitation is present. Tricuspid Valve: The tricuspid valve is normal. There is trace tricuspid regurgitation. The right ventricular systolic pressure is estimated at least 43 mmHg assuming a right atrial pressure of 8 mm Hg. Pulmonic Valve: The pulmonic valve leaflets are thin and pliable; valve motion is normal. There is trace pulmonic regurgitation. There is no significant valvular heart disease. Great Vessels: The aortic root is normal size. The ascending aorta is normal in size. The aortic arch is normal in size. The pulmonary is not well visualized. The IVC is dilated (diameter is greater than 2.1 cm) yet it collapses greater than 50% with a sniff. This suggests a right atrial pressure of 8 mm Hg. Pericardium/ Pleura There is a trace loculated pericardial effusion. There is no pleural effusion. MMode/2D Measurements & Calculations LVIDd: 4.5 cm RA long axis LVOT diam: 2.0 cm LVIDs: 3.1 cm LA A2 area: 22.2 cm AoV Opening FS: 30.6 % LA A4 area: 23.1 cm RA area EPSS: 0.18 cm LA length (vol) Ao root diam IVSd: 1.00 cm : 26.5 cm LVPWd: 1.2 cm LA vol: 86.4 ml RA vol asc Aorta Diam LA vol index : 104.ml RA Ao Arch Diam (Prox : 54.2 mm2 Trans): 2.7 cm IVC diam: 2.4 cm LV zelaya. diameter/BSA LV sys. diameter/BSA RVD1 (basal) RVD2 (mid): 3.3 cm (cm/m^2): 2.3 (cm/m^2): 1.6 TAPSE: 2.6 cm Doppler Measurements & Calculations Ao V2 max MV E max xander MV E/A: 1.1 TR max xander : 132.7 cm/sec : 102.9 cm/sec Med Peak E' Xander : 294.2 cm/sec Ao max PG MV A max xander TR max PG : 7.0 mmHg : 93.3 cm/sec E/E' med: 6.3 : 34.6 mmHg Ao mean PG MV P1/2t: 34.1 msec Lat Peak E' Xander PA V2 max : 105.4 cm/sec LVOT Max Axnder E/E' lat: 4.6 PA mean PG : 124.7 cm/sec E/e' average: 5.4 PA Accel Time RYAN(I,D): 2.6 cm : 0.09 sec sev ratio MV dec time MV P1/2t max xander Ao V2 mean LV V1 max PG : 0.11 sec : 97.8 cm/sec MVA(P1/2t): 6.4 cm2 Ao V2 VTI: 21.2 cmLV V1 VTI RYAN(V,D): 2.9 cm2 : 17.7 cm PA V2 mean RYAN indexed to BSA : 67.9 cm/sec (cm^2/m^2): 1.4 Reading Physician:JENNIFER
[2017-04-03] MEDS ORDERED: Lactated Ringer's 500 ML IV PRN (12:28)
[2017-04-03] MEDS ORDERED: Lactated Ringer's 1,000 ML IV SCH (12:28)
[2017-04-03] MEDS ORDERED: HYDROmorphone 1 mg/mL Inj IVPUSH PRN (12:30)
[2017-04-03] MEDS ORDERED: Vancomycin Serum Trough XX ONE (12:30)
[2017-04-03] MEDS ORDERED: fentaNYL-PF 50 mCg/mL 2 mL Inj IVPUSH PRN (12:30)
[2017-04-03] MEDS ORDERED: Phenylephrine 10,000 mCg/mL Inj IVPUSH PRN (12:30)
[2017-04-03] MEDS ORDERED: EPHEDrine Sulfate 50 mg/mL Inj IVPUSH PRN (12:30)
[2017-04-03] MEDS ORDERED: Ondansetron 2 mg/mL 2 mL Inj IVPUSH PRN (12:30)
--- NOTE | 2017-04-03 12:44 | PCM.PODPO ---
Podiatry Operative Report Date of Service: Apr 03, 2017 Date of Service Apr 03, 2017 Pre Operative Diagnosis abscess/cellulitis of right posterior ankle Post Operative Diagnosis abcess/ cellulitis of right posterior ankle, tarsal tunnel,distal leg, and lateral foot Procedure Incision and drainage of right leg, ankle and foot Surgeon Surgeon: Dr. Armando Mcdaniels Assistants: None Indication for Procedure Abscess/cellulitis of right lower extremity Findings severe abscess of the right posterior ankle with purulence extending from the distal tarsal tunnel and medial foot proximally to the mid calf and subcutaneous distal leg encompassing the majority the medial leg distal to the tibial tuberosity severe pitting edema of the right forefoot and lateral ankle with serous drainage and minimal purulent discharge Details of Procedure Patient identified in the pre op holding area, all comorbidities and allergies were identified and discussed. Patient transported into the OR and placed on the OR table in the supine position. LMA anaesthesia induced by the anaesthesia service. attention was first paid to the medial aspect of the posterior right ankle. Severe edema was noted with new onset bullae of the tarsal tunnel. compression of the medial arch and tarsal tunnel was productive for purulent drainage draining from the previously created posterior stab incision. A #15 blade was used to make an approximately 10 cm incision directly overlying the medial tarsal tunnel once through the initial layer of skin a large amount of purulent drainage was noted originating from the inferior and superior aspect of the incision. a metzenbaum scissor was used to bluntly dissect through subcutaneous tissue, the flexor retinaculum was incised. compression was again applied to the leg and a large amount of purulence continued to be expressed from the proximal tarsal tunnel extending into the medial leg. The incision was extended proximally an additional 10 cm. inspection of subcutaneous tissue revealed necrosis of subcutaneous fat of the medial leg with large amounts of purulent discharge. compression was continuously applied to the leg, ankle and foot until all purulence had been expressed. this incision was then copiously flushed with saline infused with gentamycin. no exposed bone is noted. exposed tendon does not appear necrotic and no insult to the tendon sheath was noted. attention was then paid to the lateral ankle and foot. a 10 cm incision was made , minimal purulent discharge noted severe serous drainage is present. no necrotic tissue is noted. Wounds were packed with saline soaked gauze dressed with dry sterile gauze, ABD pads kerlix, and a loosely applied yadi wrap. Due to severe edema of the calf, a ultrasound was ordered and preformed while the patient was still under anaesthesia, verbal read was negative for DVT. patient was awoken by the anaesthesia service and transported to the PACU. no complications occurred during this procedure. Grafts, Implants: None Complications There were no periprocedural complications identified. Condition Stable Anesthetic Administered: GA Drains: None Output, Estimated Blood Loss: 75 Blood Admin during surgery: No Surgical Cast or Splint: None Surgical Specimen Removed: No Specimen sent to Pathology: No Post Operative Plan Restart in patient medications per hospitalist service recs. transfer back to floors when stable. non weight bearing right foot. advance diet as tolerated. plan for return to the OR tomorrow around noon with Dr. Kirby for additional washout and debridement. continue IV antibiotics per Dr. Spencer recs. Clinical evaluation of right lower extremity is concerning for possible necrotizing fasciitis, Further analysis will be made by Dr. Kirby tomorrow during additional washout and debridement. Patient has also been discussed with General Surgery, Dr. Cox, regarding possible BKA of the right LE if condition of ankle and leg deteriorates. Possibility of BKA was discussed postoperatively today with patients and patient himself. Patient now admitting to recent drug use including smoking meth however he continues to deny any recent IV drug use. Patients states that he is suspicious of IV drug use due to finding needles in his home however other IV drug abusers have lived in this home recently. Podiatry will continue to follow daily. Armando Mcdaniels DPM Apr 03, 2017 12:44
--- NOTE | 2017-04-03 13:42 | DRSVH ---
PROCEDURE: US VEINOUS LEG DUPLEX UNILATERAL, RIGHT INDICATIONS: DVT TECHNIQUE: Real-time imaging, as well as color and pulse Doppler interrogation, were performed of the lower extr emity deep veins from the inguinal ligament to the popliteal fossa. COMPARISON: None. FINDINGS: The deep veins are normally compressible, and free of intraluminal thrombus. Color and pu lse Doppler demonstrate normal phasic intraluminal flow. There is normal augmentation response to di stal compression maneuver. IMPRESSION: No DVT found right leg. Dictated by: Real Magallanes M.D. on 04/03/2017 at 13:41 Approved by: Real Magallanes M.D. on 04/03/2017 at 13:41
--- NOTE | 2017-04-03 14:20 | NUR ---
Pt back on unit Pt returned from PACU with VS WNL: BP 115/66 P 106 RR 18 Sp02 100% on RA. Report given from JOHAN Guevara. Pt was difficult to rouse and keep awake but was able to answer questions appropriately. Pt wound fall asleep with eyes partially open during mid-sentence. Pt stated that his pain was a 2/10 in his LLE. LLE still swollen, warm to touch, delayed cap refill, dried purulent fluid on mars dressing CDI. Unable to assess LE pulses dt dressing. Pt tolerated PO fluids and ate a cup of apple sauce. Placed on contact for Beta strep A resulted from abscess fluid. Continue to monitor
[2017-04-03] MEDS: Multivit-Miner-Folic Acid-Iron Tablet PO SCH (14:22)
--- NOTE | 2017-04-03 14:44 | PCM.PNMED ---
Subjective Date of Service Apr 03, 2017 Subjective Patient has triggered a see was score of 21 overnight and got 20 mg diazepam, a score of 16 this a.m. got 10 more milligrams of Valium. He was seen by me after his IND surgery by dr. mcdaniels , He is heavily sedated because of the surgery and when asked how he was doing heat repplied "peachy ". The surgical. Note described extensive abscess.. His because bedside, has a lot of concerns about continued IV drug use, and ongoing alcohol abuse. states he did not realize how severe patient's all clot abuse was. Patient asked on 3 occasions to go get him some alcohol today. Exam Vital Signs Vital Sign - Last Date Time Temp Pulse Resp B/P Pulse Ox O2 Delivery O2 Flow Rate FiO2 04/03/17 14:22 36.9 106 18 115/66 100 Room Air Intake and Output 04/02/17 04/02/17 04/03/17 Cumulative From/Thru 15:00 23:00 07:00 04/02/17 10:50 - 04/03/17 06:38 Intake Total 2000 ml 200 ml 2935 ml 5135 ml Output Total 550 ml 700 ml 1250 ml Balance 2000 ml -350 ml 2235 ml 3885 ml Intake Oral 200 ml 360 ml 560 ml IV Total 2000 ml 2575 ml 4575 ml Output Urine Total 550 ml 700 ml 1250 ml # Bowel Movements 0 0 0 Exam General: Drowsy appearing HEENT: Normocephalic, atraumatic. External ears without defect. Neck: Supple with full range of motion. No jugular venous distension. No bruits. Cardiovascular: Regular rate and normal rhythm with no murmurs, rubs, or gallops appreciated Pulmonary: Clear to auscultation bilaterally with no crackles, wheezes, or rhonchi. Normal respiratory effort with no use of accessory muscles. Abdomen: Flat nontender abdomen. Bowel tones present. Soft, mildly tender diffusely, nondistended. No hepatosplenomegaly or masses appreciated. Skin: Normal temperature, turgor, and texture; . Swollen right lower extremity. Daily dressings over his right lower extremity Neurological: No focal deficits Psychiatric: Normal mood and affect. IVs and Medications IV Fluids Normal saline 1 25 mL per hour Medications Reviewed: Medications were reviewed in detail Lab and Diagnostics Result Diagram: 04/03/17 04/03/17643 X-Rays, CTs and MRIs I have personally and independently reviewed the x-ray of ankle. Positive for soft tissue swelling no osteomyelitis Ultrasound of right lower extremity showed no abscess Additional Diagnostics US Echo 04/03 Interpretation Summary The left ventricle is normal in size. The left ventricular ejection fraction is normal. The ejection fraction is estimated to be 60-65%. There are no focal wall motion abnormalities. The right ventricle is borderline dilated. The right ventricular systolic function is normal. The right ventricular systolic pressure is estimated at least 43 mmHg assuming a right atrial pressure of 8 mm Hg. The left atrium is moderately dilated. The right atrium is moderate to severely dilated. There is no significant valvular heart disease. The aortic root is normal size. There is a trace loculated pericardial effusion. Assessment & Plan This is a 26-year-old white male with past medical history of IV drug use, alcohol abuse, methamphetamine abuse currently presenting to the ER with suspicious appearing rate ankle swelling. Sepsis secondary to cellulitis and abscess of right ankle, present on admission active -- Meets sepsis criteria secondary to tachycardia, leukocytosis, cellulitis -- Dr. Tyler Penn from orthopedic surgery is contacted, he asked for the patient to be kept nothing by mouth overnight on 04/02. Dr. Penn later told me later that patient was undergoing I&D by Dr. Mcdaniels and Dr. Truong, they able to do this procedure better anyway as per Dr. Penn -- Podiatry is consulted, we appreciated their support and recommendations -- Initially vancomycin and Zosyn started in the ER and continued overnight. Vancomycin was discontinued in the 04/03 a.m. upon receiving 1 cultures with group a strep. -- MRSA nasal swab was negative, Aso titers was within normal limits. -- MRI of the right foot, right ankle, right tib-fib was ordered, Ativan 1 time dose 0.5 mg IV for anxiety prior to procedure, patient could not handle MRI due to anxiety -- Blood cultures are negative to date . 2 wound cultures were done in the ER/ patient's room on 04/02 both revealed group a strep. -- Infectious disease consult is ordered, Dr. Spencer has seen the patient and switched him to clindamycin and ceftriaxone on 04/02. -- TTE is ordere, was done on 04/03 showed concern for left atrial dilation -- IV ketorolac, IV Dilaudid, by mouth oxycodone for pain control -- Patient was given aggressive fluid hydration due to lactic acidosis -- Lactic acidosis at admission 5.3, we will hydrate him and follow with every 2 hour checks, now normalized -- ESR and CRP levels are elevated and trended daily -- Patient is transferred to CCU upon recommendation from infectious disease, per Dr. Spencer, patient has flesh eating bacteria and is at high risk of event such as hypotension. Also considered high risk for alcohol withdrawal based on his CIWA scores so far IV drug use, chronic unknown current status -- Patient denies current use, his partner apparently is not so sure, ER documentation describes needles in the house. also described needles around the house Acute hyponatremia present on admission: Improving -- Patient is endorsing drinking a lot and urinating a lot prior to arrival -- Possibly from dehydration -- IV fluids 1 25 mL/h -- Hyponatremia workup revealed hypovolemia -- AM BMP Acute tachycardia present on admission improving -- Likely secondary to sepsis and dehydration -- IV fluid hydration as above -- Telemetry -- Echocardiogram in the a.m. showed concern for left atrial dilation, The right ventricular systolic pressure is estimated at least 43 mmHg Chronic tobacco. Abuse, present on admission -- Nicotine patches are ordered Chronic asthma: Stable -- Continue patient's home albuterol, Flovent Alcohol abuse chronic, present on admission active -- Considered high risk for alcohol withdrawal based on his CIWA scores so far, patient is transferred to CCU this afternoon -- CIWA protocol -- Valium for CIWA score greater than 8, consider switching him to Librium in the a.m. Pain Evaluation: Pain not Controlled Resuscitation Status: CPR: Attempt Resuscitation Time spent 25 minutes Lia Cox DO Apr 03, 2017 14:44
--- NOTE | 2017-04-03 15:59 | NUR ---
TFR to ccu Pt transferred to CCU. Report given to Arnoldo Gomez RN. All personal items and medications brought down. Pt slept the whole way down.
--- NOTE | 2017-04-03 16:11 | NUR ---
Pt admitted to CCU at approx 1600hrs from [facility] Pt arrived to CCU, is sleepy but easily woken and approp, cooperative in care. BP 117/59. HR ST-SR 90's to 110's, RR 23 room air sats 98%. Pt voided 600 cc urine on arrival. He has IV NS at 100cc/hr. Pt has right ankle wrapped by OR post surgery today. This is oozing moderate amount serous fluid. right foot is swollen, I am unable to feel pulses due to dressing and swelling, but foot is warm with great cap refill.
--- NOTE | 2017-04-03 17:25 | NUR ---
Social Work-attempted assessment: Data& assessment:EMR reviewed. Pt is a 26 y/o male who was admitted on 04/02/17 for AMS per H&P. Pt's insurance is Self pay and no PCP. EMR Reviewed. SW attempted to see pt today, but pt at the OR and then transferred to CCU. SW to compete assessment and await MD order for CD assessment. Per H&P, pt does marijuana, meth, and drinks alcohol. SW will continue to follow. Plan:SW to follow for assessment and CD after orders. SW will continue to follow. JULIO CESAR Mayfield
[2017-04-03] MEDS: Fluticasone-Salmeterol 100-50 Inhaler INHALATION SCH (18:16)
[2017-04-03] MEDS: HYDROmorphone 0.5 mg/0.5 mL iSecure Syringe IVPUSH PRN (21:02)
[2017-04-04] VITALS (13 sets, daily range): BP systolic 130–160; BP diastolic 8–85; PULSE 92–118; RESP 18–58; O2SAT 96–99
[2017-04-04] MEDS: Heparin 5,000 Unit/mL Inj SUBQ SCH ×3 (00:30→17:32)
[2017-04-04] MEDS: HYDROmorphone 0.5 mg/0.5 mL iSecure Syringe IVPUSH PRN ×3 (01:42→15:17)
[2017-04-04 03:18] LABS: Mean Corpuscular Hemoglobin 30.7 pg (27.0-35.0); Platelet Count 316 bil/L (150-400)
[2017-04-04 03:38] LABS: BASOPHILS % (AUTO) 0 % (0-3); EOSINOPHILS % (AUTO) 1 % (0-5); MONOCYTES % (AUTO) 6 % (4-12); NEUTROPHILS % (AUTO) 74 % (40-74)
[2017-04-04] MEDS: Ketorolac 15 mg/mL Inj IVPUSH PRN ×3 (03:53→18:15)
[2017-04-04] MEDS: 0.9% Sodium Chloride 1,000 ML IV SCH ×2 (06:26→16:45)
--- NOTE | 2017-04-04 08:27 | PCM.HPANE ---
Patient Data Surgeon Admitting Provider:Lia Cox DO Attending Provider:Flako Martinez MD Primary Care Physician:Nopcp Other Provider: Reason for Visit Ams,Uti Ht/WT & BMI Height (Feet): 6 Height (Inches): 0.00 Weight (Kilograms): 71.800 Body Mass Index 21.44 Allergies Coded Allergies: No Known Allergies (Unverified , 04/02/17) Past Anesthesia History Anesthesia History: Denies:: Anesthesia Reactions Diabetes History Hx Diabetes?: No MRSA MRSA: No Medications Hypertension Medication: No Home Meds Incl Beta Anca: No Reported Medications Albuterol HFA (Proair HFA)8.5 Gm Hfa.aer.ad2 Puffs INHALATION Q4H PRN For Shortness of Breath 04/02/17 Fluticasone/Salmeterol (Advair Hfa 115-21 Mcg Inhaler)12 Gm Hfa.aer.ad1 Puff IH BID 04/02/17 History History of ENT Problems?: No HEENT History: Denies:: Abnormal Airway Cataracts Difficult Intubation Dysphagia Glaucoma Hearing Problem Sinus Problem TMJ Denture Type: None Teeth Condition: Within Normal Limits Hx of Heart Problems?: No Cardiovascular History: Denies:: AICD Abdominal Aortic Aneurism Atrial Fibrillation Cardiac Surgery Chest Pain Congestive Heart Failure Coronary Artery Disease Edema Heart Murmur Hypertension Irregular Heartbeat Pacemaker Peripheral Vascular Rheumatic Fever Thrombophlebitis Valvular Heart Disease Hx of Respiratory Problem?: Yes Respiratory History: Positive for:: Asthma Pneumonia Other Resp Pertinent History: wooping cough Hx Neurologic Problems?: No Neurological History: Denies:: Alzheimer's Disease CVA Dementia Dizziness Headaches Multiple Sclerosis Parkinson's Disease Peripheral Neuropathy Seizures TIA Hx of GI Problems?: No Hx of Problems?: No Male Hx: Denies:: Prostate Problems Scrotal Mass Testicular Surgery Hx Musculoskeletal Problems?: No Hx of Psycho/Social Problems?: No Psycho Social History: Positive for:: Hx Depression Denies:: Anxiety Bipolar Disorder Suicide Attempt Hx Surgeries?: No Hx Any Other Health Problems?: No Other History: Denies:: Cancer Hospitalization Thyroid Disease History Blood Transfusions: Positive for:: Accept Blood Products? Denies:: Blood Transfusions Hx Diabetes: No Occupation: unemployed Hx Alcohol Use: Yes (a 5th of vodka daily)Alcoholic Drinks Per Day: states drinks 1/5 daily Hx Substance Use: Yes (IV heroin) Smoking Status: Current Every Day Smoker (half pack per day) Have You Smoked inLast 12 mo: YesApprox How Many Cigarettes/day: 1/2 pack per day Stop/Bang Treated for Sleep Apnea?: No Do You Have a CPAP Machine?: No S-Snoring: Do You Snore Loudly: No T-Tired: feel tired, fatigued: No O-Obsered: Observed not breath: No P-Blood Pressure: treated: No B- Body Mass Index > 35 kg/m2: No A- Age over 50: No N- Neck Large Circumference: No G- Gender Male: Yes KORY Total Score: 1 KORY Risk Assessment: Low Risk, <3 Yes Risk Assessment Category Category 1A: Patient has history of documented sleep apnea, and HAS NOT received any narcotic, sedative or anesthesia administration during this stay. Category 1B: Patient has history of documented sleep apnea, and HAS received any narcotic , sedative or anesthesia administration during this stay Category 2: Patient has SUSPECTED Obstructive Sleep Apnea, and HAS received any narcotic , sedative or anesthesia administration during this stay. Category 3: Patient has SUSPECTED Obstructive Sleep Apnea and HAS NOT received narcotic, sedative or anesthesia administration during this stay. Category 4: Outpatient in Procedural Areas with known sleep apnea or who screen positive for High Risk via the STOP/BANG questionnaire. Low Risk, <3 Yes Exam Exam Vital Signs Vital Signs Date Time Temp Pulse Resp B/P Pulse Ox O2 Delivery O2 Flow Rate FiO2 04/04/17 04:30 36.9 95 20 134/78 98 Room Air 04/04/17 00:30 37.5 97 18 132/72 99 Room Air General Appearance: Alert, Oriented X3, Cooperative, No Acute Distress HEENT/AIRWAY: MP 2 Lungs: Clear to Auscultation, Normal Air Movement Heart: Exam Unremarkable, Regular Rate/Rhythm, No Murmurs/Rubs/Gallops Meds/Labs/Diagnostics Admission Meds Current Medications Prenat Multivit/ Personal [employer] Underwriter/Iron/Folic Ac ( Vitamins) 1 tablet DAILY PO Last administered on 04/03/17 14:22; Start 04/03/17 at 08:30 Prenat Multivit/ [place]/Iron/Folic Ac ( Vitamins) 1 tablet DAILY PO Last administered on 04/03/17 14:22; Start 04/03/17 at 08:30; Stop 04/04/17 at 08:02; Status DC Salmeterol Xinafoate/ Fluticasone 1 puff 1 puff BID INHALATION Last administered on 04/03/17 18:16; Start 04/03/17 at 20:30 Ceftriaxone Sodium/Dextrose/ Water (Rocephin Inj/ D5W Minibag Plus) 50 ml @ 100 mls/hr Q24H IV Last administered on 04/03/17 15:21; Start 04/03/17 at 10: 55 Bupivacaine HCl/ Epinephrine Bitart 30 ml 30 ml STK-MED ONCE INFILTRATE Last administered on 04/03/17 12:00; Start 04/03/17 at 12:00; Stop 04/03/17 at 12:08 ; Status DC Lactated Ringer's (Lr) 1,000 ml @ ud STK-MED ONCE IV Last administered on 04/03 11:29; Start 04/03/17 at 11:29; Stop 04/03/17 at 12:08; Status DC Gentamicin Sulfate (Gentamicin Inj) 80 mg STK-MED ONCE IRRIGATION Last administered on 04/03/17 12:00; Start 04/03/17 at 12:00; Stop 04/03/17 at 12:18 ; Status DC Gentamicin Sulfate (Gentamicin Inj) 80 mg STK-MED ONCE IRRIGATION Last administered on 04/03/17 12:00; Start 04/03/17 at 12:00; Stop 04/03/17 at 12:30 ; Status DC Labs Test 04/02/17 11:26 04/02/17 12:30 04/02/17 13:28 04/02/17 15:43 Osmolality 295 (275-300) Thyroid Stimulating Hormone (TSH) 0.400uIU/mL (0.450-4.500) Streptozyme 45.0IU/mL (0.0-200.0) Urine Color Yellow (YELLOW) Urine Appearance Clear (CLEAR,HAZY) Urine pH 6.0 (5.0-8.0) Urine Specific [place] 1.010 (1.003-1.035) Urine Protein 100mg/dL (NEG,TRACE) Urine Glucose (UA) Negativemg/dL (NEGATIVE) Urine Ketones Negativemg/dL (NEGATIVE) Urine Occult Blood Moderate (NEGATIVE) Urine Nitrite Negative (NEGATIVE) Urine Bilirubin Small (NEGATIVE) Urine Ictotest Pos (Negative) Urine Urobilinogen 4.0mg/dL (NORMAL) Urine Leukocyte Esterase Negative (NEGATIVE) Urine RBC 0-2/hpf (0-2) Urine WBC 0-5/hpf (0-5) Urine Epithelial Cells Occasional/hpf (NONE-MOD) Urine Crystals None seen (NONE SEEN) Urine Bacteria Few/hpf (NONE-FEW) Urine Hyaline Casts None/lpf (NONE) Urine Granular Casts None seen (NONE SEEN) Urine Waxy Casts None seen (NONE SEEN) Urine Red Blood Cell Casts None seen (NONE SEEN) Urine White Blood Cell Casts None seen (NONE SEEN) Urine Mucus None seen (None Seen) Urine Trichomonas None seen (NONE SEEN) Urine Yeast None (NONE SEEN) Urinalysis Comment None Urine Culture Reflexed Not indicated Hold Urine Received (Received) Urine Osmolality 445mOs/kH2O (250-1200) Urine Random Sodium < 10mEq/L Cortisol 16.8ug/dL (.) Test 04/03/17 00:13 04/03/17 06:44 04/04/17 02:50 Lactic Acid Level 1.5mmol/L (0.4-2.0) Erythrocyte Sedimentation Rate 55mm/hr (0-15) Sodium Level 133mEq/L (134-144) Potassium Level 3.8mEq/L (3.5-5.2) Chloride Level 100mEq/L (97-108) Carbon Dioxide Level 20mmol/L (18-29) Blood Urea Nitrogen 19mg/dL (6-20) Estimat Glomerular Filtration Rate 168mL/min (>59) Glucose Level 113mg/dL (60-99) Calcium Level 7.9mg/dL (8.5-10.1) Total Bilirubin 1.3mg/dL (0.0-1.2) Aspartate Amino Transf (AST/SGOT) 28U/L (0-50) Alanine Aminotransferase (ALT/SGPT) 41U/L (0-44) Alkaline Phosphatase 207U/L (25-150) C-Reactive Protein 17.1mg/dL (0.0-0.5) Total Protein 4.8g/dL (6.4-8.4) Albumin 2.3g/dL (3.4-5.0) White Blood Count 13.0th/mm3 (3.8-10.1) Red Blood Count 3.35mil/mm3 (4.40-5.80) Hemoglobin 10.3g/dL (13.8-17.2) Hematocrit 29.8% (41.0-50.0) Mean Corpuscular Volume 89.0fL (81-100) Mean Corpuscular Hemoglobin 30.7pg (27.0-35.0) Mean Corpuscular Hemoglobin Concent 34.6% (32.0-37.0) Red Cell Distribution Width 14.0% (12.3-15.4) Platelet Count 316bil/L (150-400) Neutrophils (%) (Auto) 74% (40-74) Lymphocytes (%) (Auto) 16% (14-46) Monocytes (%) (Auto) 6% (4-12) Eosinophils (%) (Auto) 1% (0-5) Basophils (%) (Auto) 0% (0-3) Band Neutrophils % 2% (1-5) Creatinine 0.64mg/dL (0.76-1.27) Plan Impression Patient chart reviewed, patient interviewed and anesthestic plan with risks, benefits, and alternatives discussed, and informed consent obtained. NPO per Anesth. Guidelines: Yes ASA Physical Status: ASA3 Severe Disease Anesthetic Plan: GA Bene/Risks/Altern/Consents: Yes HP Complete Prior to Induction: Yes Isacc Degroot MD Apr 04, 2017 08:27
[2017-04-04] MEDS: Multivit-Miner-Folic Acid-Iron Tablet PO SCH (08:30)
[2017-04-04] MEDS ORDERED: Lactated Ringer's 1,000 ML IV ONE ×3 (08:54→16:40)
[2017-04-04] MEDS: Fluticasone-Salmeterol 100-50 Inhaler INHALATION SCH ×2 (09:17→20:34)
[2017-04-04] MEDS ORDERED: Albuterol-Ipratropium 3 mL Inhalation Solution NEB PRN ×2 (10:20→10:25)
--- NOTE | 2017-04-04 10:21 | NUR ---
NUTRITION ASSESSMENT: ASSESS:26 YO male admitted with sepsis, as well as abscess, cellulitis and pain of the right posterior ankle. He is status post I&D yesterday and is scheduled for the OR today at noon for additional I&D, possible AKA or BKA. His CIWA score is currently 10 but was transferred to CCU yesterday for withdrawal management. There is also concern for left atrial dilation. PMHx:Asthma, IV drug use (heroin, meth), ETOH, marijuana, smoking. DIET:General. PO not yet recorded; pt. is NPO for procedure today. LABS: Reviewed. Na 133, Cr 0.64, Glu 113, Ca 7.9, Total Bili 1.3, Alk Phos 207, CRP 17.1, Alb 2.3. MEDICATIONS: Reviewed. MVI, vitamin B1. NUTRITION FOCUSED PHYSICAL ASSESSMENT: GI symptoms / stool: No BM reported.Patrick: 16. Skin Integrity: No other issues reported. ANTHROPOMETRICS: Current Wt: 71.8 kgBMI: 21.0 kg/m2.Admit weight: 70.4 kg IBW: 80.9 (87% IBW) ESTIMATED NEEDS (WOUNDS, UNDERWEIGHT): Calories: 2112 - 2816 kcal (30 - 40 kcal / kg BW) Protein: 106 - 141 g protein (1.5 - 2.0 g / kg BW) NUTRITION DIAGNOSIS: 1) Increased nutrient needs related to extensive abscess, possible AKA / BKA, as evidenced by multiple I&D's, OR today. INTERVENTION: 1) Pt. is not appropriate to explain Hemal supplement for wound healing. Will add Ensure / Magic Cups / Gelatein to trays. MONITOR/EVALUATE: Diet / supplement tolerance, PO intake, labs, GI/nutrition status. Follow up per high nutrition risk guidelines.
--- NOTE | 2017-04-04 11:08 | PROG NOTE ---
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 INTERVAL HISTORY: Overnight, the patient continues to complain of extreme pain in his legs starting just below the right knee and continuing all the way down into the ankle. Recall that he had a small debridement on the evening of the followed by a more extensive debridement of the foot and ankle area by Podiatry yesterday. I discussed this case in detail with Dr. Mcdaniels twice yesterday and there are plans to take the patient back to the operating room today for additional debridement as needed. The patient reports no fevers or chills. He has developed a mild sore throat overnight. He has not noted any skin rash. He says he is mildly short of breath but without any significant cough or chest pain. No nausea, vomiting or diarrhea. No dysuria. PHYSICAL EXAMINATION: Reveals a gentleman lying very quietly in bed and not moving his right leg. His temperature is 38 degrees during the night, now 36.9, pulse 95, respiratory rate 20, blood pressure 134/78. He is saturating well on room air. He is awake and alert. His eyes without conjunctivitis. His oral cavity is unremarkable. Neck is supple. Lungs are relatively clear. Cardiac tones tachycardic but without murmur. Regular rate and rhythm is noted. Abdomen: A bit guarded perhaps but without focal tenderness, mass or ascites. No inguinal adenopathy is noted on the right side. He does have a few erythematous blotches about 2 cm each scattered across his anterior chest but no classic toxic erythema as would be seen with streptococcal toxic shock and he is certainly not in shock. The right lower extremity is of great concern. The knee is somewhat swollen and with minimal tenderness when one palpates the knee joint itself. He can move the right knee joint but it is somewhat restricted range of motion at this point in that he cannot completely straighten or flex the knee due to pain. Starting just below the knee, the soft tissues of the calf and lower extremity are diffusely erythematous, warm and tender. No bullae are seen. The ankle is wrapped in a large postop dressing from yesterday's surgery which I did not remove but the nurses tell me the last time it was changed there was considerable drainage. The forefoot protrudes from the large dressing and it is viable and he can move those toes. The patient has very significant tenderness, however, involving much of that leg below the knee. LABORATORIES: Include a white count which is rapidly normalizing. It had been 24,000 when he presented about noon on the . It is now down to 13,000. The left shift is completely gone. The creatinine is 0.64 and stable. Lactic acid is no longer being checked, but it was normal. LFTs are normal. CRP is 17, which is impressive. It was 23 when he was admitted. Albumin only 2.3. Urinalysis without white cells. Hep C and HIV are negative. We now have four cultures from the wound, two cultures from that early debridement on the and two cultures from yesterday's debridement, all growing group A strep. This group A strep has a typical susceptibility pattern in that it is completely susceptible to penicillin, ampicillin, ceftriaxone and clinda. IMAGING: Includes an ultrasound of the right leg which shows no DVT and the previous ankle film. Recall that this patient is unable to tolerate MRI scan. An echocardiogram has been done. It shows some dilatation of the left atrium as well as the right atrium. No valvular disease. Yesterday's surgical note from Dr. Mcdaniels describes the debridement. Yesterday the patient had additional drainage with a large amount of purulence. Necrosis of subcutaneous fat was also noted with considerable purulence. He did note that no exposed bone was seen and it tended to not appear to be necrotic. The patient has also been discussed with General Surgery. IMPRESSION: This is an unfortunate young gentleman with a history of polysubstance abuse who developed several days ago quite severe ankle pain to the extent he could not walk or really function. Eventually on April 02, he presented to the emergency department with what appeared to be an abscess involving the area around the Achilles insertion. He was initially cultured and started on a combination of antibiotics which included vancomycin and Zosyn as there were concerns for perhaps even a polymicrobial infection as there is a history of probable intravenous drug use. When he was initially evaluated late on the by Podiatry, a limited debridement was done and cultures were obtained which grew group A strep. I saw the patient yesterday, and at that point, we added clindamycin to his broad-spectrum antibiotics and an additional surgery was undertaken by Dr. Mcdaniels with considerable additional debridement and drainage of his purulent infection. Today this seems as if there is continued progression now involving more proximal areas of the right calf and lower extremity below the knee. The knee itself, for the first time, is also somewhat swollen today and I wonder whether there could be involvement of the joint which would be a very disturbing finding. There is no evidence whatsoever however, despite his localized necrotizing group A strep infection, that he has any degree of shock. He is hemodynamically stable, and in fact, his white blood count and other parameters are actually rapidly normalizing even as his leg destruction and infection progress. RECOMMENDATIONS: 1. After review of the literature, we will go ahead and switch to penicillin from ceftriaxone as most expert opinion and guidelines recommend penicillin in this case. Though because of the [place] affect, either penicillin or ceftriaxone is probably limited in its efficacy and the main power drug here is actually clindamycin which we will continue with maximal doses. 2. I have placed a call to Dr. Mcdaniels. I will be discussing this case with him. I strongly suspect that a considerable additional debridement of the right lower extremity will be indicated during today's scheduled exploration. 3. At this point, it is unclear if the patient will be able to resolve this infection or whether he may need a BKA or even an AKA if things continue to deteriorate as they have been so far. 4. This case discussed in detail with the patient's spouse as well as his father and the patient himself, of course.
[2017-04-04] MEDS: DEXTROSE 5% IV SCH ×3 (12:30→20:37)
[2017-04-04] MEDS ORDERED: [UNRECOGNIZED DRUG - MIXTURE] IV SCH (12:30)
[2017-04-04] MEDS: PENICILLIN K IV SCH ×3 (12:30→20:37)
[2017-04-04] MEDS ORDERED: Lactated Ringer's 1,000 ML IV SCH (13:31)
[2017-04-04] MEDS ORDERED: Lactated Ringer's 500 ML IV PRN (13:31)
--- NOTE | 2017-04-04 13:33 | PCM.ANEP1 ---
Post Anesthesia PACU Phase 1 Assessment Vital Signs Vital Signs Date Time Temp Pulse Resp B/P Pulse Ox O2 Delivery O2 Flow Rate FiO2 04/04/17 13:30 36.6 107 30 145/76 96 Room Air Anesthetic Administered: GA Level of Alertness: Awake, talking OLSON's with Equal Strength: Yes Pain: Yes Pain Scale Score: 8 Nausea or Vomiting: No CV Function & Hydration Stable: Yes Airway Device: Oxygen Delivery: Room Air Lungs: Normal Air Movement PACU Phase 2 Assessment Complications: No Follow up Care: No Patient Instructions Provided: N/A Isacc Degroot MD Apr 04, 2017 13:33
[2017-04-04] MEDS ORDERED: EPHEDrine Sulfate 50 mg/mL Inj IVPUSH PRN (13:35)
[2017-04-04] MEDS ORDERED: Atropine 0.4 mg/mL Inj IVPUSH PRN (13:35)
[2017-04-04] MEDS ORDERED: hydrALAZINE 20 mg/mL Inj IVPUSH PRN (13:35)
[2017-04-04] MEDS ORDERED: HYDROmorphone 1 mg/mL Inj IVPUSH PRN (13:35)
[2017-04-04] MEDS ORDERED: Labetalol 5 mg/mL 20 mL Inj IV PRN (13:35)
[2017-04-04] MEDS ORDERED: Ondansetron 2 mg/mL 2 mL Inj IVPUSH PRN (13:35)
[2017-04-04] MEDS ORDERED: fentaNYL-PF 50 mCg/mL 2 mL Inj IVPUSH PRN (13:35)
[2017-04-04] MEDS ORDERED: Phenylephrine 10,000 mCg/mL Inj IVPUSH PRN (13:35)
[2017-04-04] MEDS ORDERED: Dexamethasone 4 mg/mL Inj IVPUSH PRN (13:35)
--- NOTE | 2017-04-04 16:08 | NUR ---
Surgery/pain/withdrawal.. Pt has required dilaudid and torodol for pain control which has helped the pt to sleep. Was taken to OR for R ankle wound at 1200. Returned from PACU at 1415. Pt awake, conversant and able to eat and drink without difficulty. Has made the request to be put in a wheelchair and taken outside for some fresh air. Family relays he is requesting they bring in alcohol for him. Pt does not score high on CIWA, but MD alerted of pt's restlessness tachycardia and to be hypertensive and tachypnic. Valium given and this has been effective. Pt has requested info for assigning a DPOA. dean of student services notified and were here to discuss this with the pt and family.
--- NOTE | 2017-04-04 16:18 | PCM.PNMED ---
Subjective Date of Service Apr 04, 2017 Subjective 26-year-old male with history of alcohol and opioid use presents with acute necrotizing soft tissue infection of his right lower extremity, and alcohol withdrawal. The patient feels achy all over today. Right leg below the knee is particularly painful, although he says reasonable control with current pain medications. He feels edgy and anxious, consistent with alcohol withdrawal. He is not having diarrhea muscle cramps or piloerection to suggest opioid withdrawal. Exam Vital Signs Vital Sign - Last Date Time Temp Pulse Resp B/P Pulse Ox O2 Delivery O2 Flow Rate FiO2 04/04/17 16:02 36.9 118 30 152/74 99 Room Air Intake and Output 04/03/17 04/03/17 04/04/17 Cumulative From/Thru 15:00 23:00 07:00 04/02/17 10:50 - 04/04/17 06:15 Intake Total 975 ml 347 ml 1204 ml 7661 ml Output Total 675 ml 1050 ml 2975 ml Balance 975 ml -328 ml 154 ml 4686 ml Intake Oral 560 ml IV Total 975 ml 347 ml 1204 ml 7101 ml Output Urine Total 600 ml 1050 ml 2900 ml Estimated Blood Loss 75 ml 75 ml # Voids 2 2 # Bowel Movements 0 0 Exam General: Thin man, speaking softly, moderate general distress HEENT: sclerae anicteric, oral mucosa moist Neck: Supple, no JVD Chest: clear to auscultation Cardiac: S1S2, no murmur Abdomen: BS normal, non-tender, scaphoid Extremities: Right lower extremity bandage with tense edema from toes to knees; capillary refill is intact; light touch sensation is intact; difficult to assess pulses due to pain and bandaging Neuro: A&O, cranial nerves symmetric, mild tremor with trace of asterixis, right lower extremitiy difficult to assess, moving other extremities normally IVs and Medications Medications Reviewed: Medications were reviewed in detail Lab and Diagnostics Result Diagram: 04/04/17 0250 04/04/17 0250 X-Rays, CTs and MRIs I have personally and independently reviewed the x-ray of ankle. Positive for soft tissue swelling no osteomyelitis Ultrasound of right lower extremity showed no abscess Additional Diagnostics US Echo 04/03 Interpretation Summary The left ventricle is normal in size. The left ventricular ejection fraction is normal. The ejection fraction is estimated to be 60-65%. There are no focal wall motion abnormalities. The right ventricle is borderline dilated. The right ventricular systolic function is normal. The right ventricular systolic pressure is estimated at least 43 mmHg assuming a right atrial pressure of 8 mm Hg. The left atrium is moderately dilated. The right atrium is moderate to severely dilated. There is no significant valvular heart disease. The aortic root is normal size. There is a trace loculated pericardial effusion. Assessment & Plan # Sepsis secondary to soft tissue infection right foot, acute, present on admission. Meds criteria secondary to tachycardia, leukocytosis, local infection. Lactic acid was 5.3 declining to 1.5 with hydration - Continue IV hydration as needed to maintain mean arterial pressure greater than 65 mmHg with urine output greater than 0.5 mL/KG/hour -- Patient was given aggressive fluid hydration due to lactic acidosis #Group A beta-hemolytic strep soft tissue infection of right foot, acute. Initially vancomycin and Zosyn, clindamycin. Now on high-dose penicillin G. MRSA nasal swab was negative. Aso titers was normal. Wound cultures 2 positive for GABS. MRI of the right foot, but patient could not handle MRI due to anxiety. Plain films did not reveal osteomyelitis changes.Blood cultures are negative to date . TTE was done on 04/03 showed concern for left atrial dilation. -- IV ketorolac, IV Dilaudid, by mouth oxycodone for pain control # Alcohol withdrawal, acute. Baseline consumption of 1 quart vodka per day. Currently endorses anxiety. Exam with tremor and mild asterixis. - [facility] protocol, benzodiazepine, thiamine, hydration, electrolyte supplementation # IV drug use, chronic unknown current status -- Patient denies current use, his partner apparently is not so sure, ER documentation describes needles in the house. also described needles around the house # Acute hyponatremia present on admission: Mild, serum sodium 127 on admission. Likely hypovolemic hyponatremia with excess free water replacement. - Isotonic crystalloid - Follow BMP # Acute sinus tachycardia present on admission improving. Heart rate 128 on admission Sinus tachycardia due to sepsis - Fluid resuscitation - Telemetry until stable Resolving, stable and/or chronic problems: Chronic tobacco. Abuse, present on admission -- Nicotine patches are ordered Chronic asthma: Stable -- Continue patient's home albuterol, Flovent Alcohol abuse chronic, present on admission active - Social work for substance dependency evaluation when stable Resuscitation Status: CPR: Attempt Resuscitation Time spent 35 minutes Flako Martinez MD Apr 04, 2017 16:18 Alcohol abuse chronic, present on admission active -- Considered high risk for alcohol withdrawal based on his CIWA scores so far, patient is transferred to CCU this afternoon -- CIWA protocol -- Valium for CIWA score greater than 8, consider switching him to Librium in the a.m. Resuscitation Status: CPR: Attempt Resuscitation Flako Martinez MD Apr 04, 2017 16:18
--- NOTE | 2017-04-04 17:49 | NUR ---
Social Work Note: Initial Assessment Data& Assessment: EMR reviewed. Per MD in multidisciplinary rounds, medical team is ruling out a AKA. [facility]UM[facility] PRECA[facility] met with pt family ( and pt father) at bedside to collect initial assessment information, SW role explained. Discharge Planning Checklist provided.Issac Hicks is a 26 year old male admitted on 04/02/2017 for AMS and UTI. Pt does not have insurance at this time. RCA pending. blind aide application and SHIBA information provided. Pt lives in [place] with his spouse and is independent at baseline with all ADL's. Pt has no DME needs and does not have HH or SNF hx. Pt does not have LTC insurance or VA benefits. DPOA/AD paperwork provided. Pt family denies any needs at this time. [facility] to continue to follow for pt needs and MD orders. Plan: Anticipating discharge home when medically ready pending medical progression and ambulation abilities at time of discharge. Pt family denies any needs at this time. [facility] to continue to follow for pt needs and MD orders. JULIO CESAR Conley Addendum: 04/04/17 at 1752 by SAMI PATEL Amended: Links added.
[2017-04-04] MEDS: chlordiazePOXIDE 25 mg Capsule PO SCH (20:33)
--- NOTE | 2017-04-04 21:30 | PCM.PODPO ---
Podiatry Operative Report Date of Service: Apr 03, 2017 Date of Service Apr 04, 2017 Pre Operative Diagnosis Necrotizing fasciitis, right lower leg Post Operative Diagnosis Necrotizing fasciitis, right lower leg Procedure Incision, drainage, and debridement of Skin, subcutaneous tissue, and fascia, right lower leg. Total wound size 30cm x 7cm and undermining 3-5cm throughout. Surgeon Surgeon:Pamela Kirby DPM Assistants: None Indication for Procedure Limb threatening infection Findings Clear, yellow-brownish fluid, moderate subcutaneous edema and sparse necrosis. No chava purulence. Ascending cellulitis up to mid-thigh. No sub-fascial extension. Moderate thrombosis of subcutaneous vessels. Good bleeding throughout the margins after further debridement and resection of nonviable tissue. No odor. Details of Procedure The patient was taken to the operating room straight from his inpatient room to minimize contamination. He was placed under general anesthesia, then transferred to the operating table in supine position. The timeout protocol was completed, the patient's right leg scrubbed and pained with Betadine. The existing wound measured about 23cm long and 5cm wide, about 2-3cm undermining along the medial foot and lower leg. Clear, yellowish brown fluid was expressed from all margins. Necrotic skin margins, thrombosed vessels, fat necrosis, and nonviable superficial fascia fragments were excised with Metzenbaum scissors, a #10 scalpel, and forceps, full thickness. Once viable tissue was reached, the final wound measurements were 30cm x 7cm and undermining 3-5cm. Pulsed lavage and low pressure was used to irrigate the wound with 2L normal saline. The previous lateral incision wound was found to be clean and no further debridement was necessary along that area. After thorough irrigation, 1" plain packing gauze was packed into the undermined areas, active bleeding vessels cauterized, and a central 3-0 Prolene retention suture placed to hold the skin edges from retracting. The dressing consisted of fluffs, ABD pads, 2 rolls of Kerlix and two 6" Nii wraps, lightly compressed. It appeared that the infection had been contained. The patient was weaned off of anesthesia and taken to the recovery room with vitals stable and vascular status to right lower leg appearing viable. Grafts, Implants: None Complications There were no periprocedural complications identified. Condition Stable Anesthetic Administered: GA Drains: None Catheters: None Output, Estimated Blood Loss: 30 Blood Admin during surgery: No Surgical Cast or Splint: None Surgical Specimen Removed: No Specimen sent to Pathology: No Post Operative Plan No weightbearing. Range of motion exercises of toes, knee, and hip instructed. Dressing change tomorrow, another irrigation and debridement in 48 hours in the OR, possibly with Wound VAC placement. Continue IV antibiotics. Pamela Kirby DPM Apr 04, 2017 15:00
[2017-04-05] VITALS (8 sets, daily range): BP systolic 133–151; BP diastolic 63–81; PULSE 95–124; RESP 26–40; O2SAT 94–98
[2017-04-05] MEDS: Heparin 5,000 Unit/mL Inj SUBQ SCH ×3 (00:30→18:16)
[2017-04-05] MEDS: chlordiazePOXIDE 25 mg Capsule PO SCH ×3 (00:44→20:30)
[2017-04-05] MEDS: DEXTROSE 5% IV SCH ×6 (01:05→20:34)
[2017-04-05] MEDS: PENICILLIN K IV SCH ×6 (01:05→20:34)
[2017-04-05] MEDS: 0.9% Sodium Chloride 1,000 ML IV SCH ×3 (02:45→22:26)
[2017-04-05] MEDS ORDERED: Lactated Ringer's 1,000 ML IV SCH (05:00)
--- NOTE | 2017-04-05 06:02 | NUR ---
CIWA/PAIN Pt scored 1 on CIWA score. Librium 25mg Q8 given. Pt c/o of severe RLE pain 8/10, 10mg oxycodone given with good results. Pt was ST 110-120's most of the night. No other complaints or issues noted.
[2017-04-05] MEDS: Clindamycin Inj 900 MG in IV Premix 1 EACH IV SCH ×2 (10:19→18:16)
[2017-04-05] MEDS: Multivit-Miner-Folic Acid-Iron Tablet PO SCH (10:19)
[2017-04-05] MEDS: Fluticasone-Salmeterol 100-50 Inhaler INHALATION SCH ×2 (11:27→20:34)
[2017-04-05] MEDS: HYDROmorphone 0.5 mg/0.5 mL iSecure Syringe IVPUSH PRN ×2 (12:31→20:30)
--- NOTE | 2017-04-05 15:30 | PCM.PNMED ---
Subjective Date of Service Apr 05, 2017 Subjective 26-year-old male with history of alcohol and opioid use presents with acute necrotizing group A beta-hemolytic strep soft tissue infection of his right lower extremity, and alcohol withdrawal. He continues to have diffuse musculoskeletal aches, both his leg and his back. He remains sleepy and mildly encephalopathic, possibly related to pain medications. Adequate pain control with current pain medications. He does not endorse anxiety or agitation today. He is not having diarrhea muscle cramps or piloerection to suggest opioid withdrawal. Exam Vital Signs Vital Sign - Last Date Time Temp Pulse Resp B/P Pulse Ox O2 Delivery O2 Flow Rate FiO2 04/05/17 10:14 37.2 111 28 138/66 98 Room Air Intake and Output 04/04/17 04/04/17 04/05/17 Cumulative From/Thru 15:00 23:00 07:00 04/02/17 10:50 - 04/05/17 06:40 Intake Total 766.67 ml 2086 ml 2910 ml 04967.67 ml Output Total 330 ml 700 ml 4005 ml Balance 766.67 ml 1756 ml 2210 ml 9418.67 ml Intake Oral 720 ml 1510 ml 2790 ml IV Total 766.67 ml 1366 ml 1400 ml 95590.67 ml Output Urine Total 300 ml 700 ml 3900 ml Estimated Blood Loss 30 ml 105 ml # Voids 2 # Bowel Movements 0 0 Exam General: Thin man, speaking softly, no significant distress HEENT: sclerae anicteric, oral mucosa moist Neck: No JVD Chest: clear to auscultation Cardiac: S1S2, no murmur Abdomen: BS normal, non-tender, scaphoid Extremities: Right lower extremity bandage with less edema at knee; capillary refill is intact; light touch sensation is intact in right foot Neuro: A&O, cranial nerves symmetric, no tremor IVs and Medications Medications Reviewed: Medications were reviewed in detail Lab and Diagnostics Result Diagram: 04/04/17 0250 04/05/17 0330 X-Rays, CTs and MRIs PROCEDURE: X-RAY RIGHT ANKLE, MINIMUM THREE VIEWS ([id number]) IMPRESSION: Lateral soft tissue swelling. Dictated by: Real Magallanes M.D. on 04/02/2017 at 11:53 . Additional Diagnostics US Echo 04/03 Interpretation Summary The left ventricle is normal in size. The left ventricular ejection fraction is normal. The ejection fraction is estimated to be 60-65%. There are no focal wall motion abnormalities. The right ventricle is borderline dilated. The right ventricular systolic function is normal. The right ventricular systolic pressure is estimated at least 43 mmHg assuming a right atrial pressure of 8 mm Hg. The left atrium is moderately dilated. The right atrium is moderate to severely dilated. There is no significant valvular heart disease. The aortic root is normal size. There is a trace loculated pericardial effusion. Assessment & Plan # Sepsis secondary to soft tissue infection right foot, acute, present on admission. Meds criteria secondary to tachycardia, leukocytosis, local infection. Lactic acid was 5.3 then 1.5 with hydration - Continue IV hydration as needed - Resolving #Group A beta-hemolytic strep soft tissue infection of right foot, acute. Initially vancomycin and Zosyn, clindamycin. Now on high-dose penicillin G. MRSA nasal swab was negative. Aso titers was normal. Wound cultures 2 positive for GABS. MRI of the right foot, but patient could not handle MRI due to anxiety. Plain films did not reveal osteomyelitis changes.Blood cultures are negative to date . TTE was done on 04/03 showed concern for left atrial dilation. -- IV ketorolac, - Continue IV Dilaudid if needed for severe pain, otherwise convert to by mouth oxycodone for pain control # Alcohol withdrawal, acute. Baseline consumption of 1 quart vodka per day. Currently endorses anxiety. Exam with tremor and mild asterixis. - CIWA protocol, benzodiazepine, thiamine, hydration, electrolyte supplementation # IV drug use, chronic unknown current status -- Patient denies current use, his partner apparently is not so sure, ER documentation describes needles in the house. also described needles around the house # Acute hyponatremia present on admission: Mild, serum sodium 127 on admission. Likely hypovolemic hyponatremia with excess free water replacement. - Isotonic crystalloid - Follow BMP # Acute sinus tachycardia present on admission improving. Heart rate 128 on admission persistent Sinus tachycardia due to sepsis; some degree of alcohol withdrawal possible. - Fluid resuscitation - Okay to discontinue telemetry # Hepatitis C infection. Likely chronic. Apparently a new diagnosis. No acute increase in transaminase. - Monitor clinically Resolving, stable and/or chronic problems: Chronic tobacco. Abuse, present on admission -- Nicotine patches are ordered Chronic asthma: Stable -- Continue patient's home albuterol, Flovent Alcohol abuse chronic, present on admission active - Social work for substance dependency evaluation when stable Resuscitation Status: CPR: Attempt Resuscitation Time spent 35 minutes Flako Martinez MD Apr 05, 2017 15:30
--- NOTE | 2017-04-05 17:42 | PCM.PNPOD ---
Subjective Date of Service: Apr 05, 2017 Visit Information: Reason for Visit Ams,Uti,Right leg necrotizing fasciitis Surgery/Surgery Date second debridement of right lower leg 04/04/2017 Post-Op Day # 1 Date of Admission: Apr 02, 2017 at 13:13 Subjective: The patient was seen at lunchtime today, resting comfortably. He is still experiencing tachycardia, but respiratory rates are calming down with some coaching. He is going through alcohol withdrawal. His right leg is less painful and the pain is tolerated better with somewhat increased pain medication regimen. He is only spiked one fever, last night around 11 p.m. Gastrointestinal: Good Appetite Pain Management: PO, IV Push Postop Activity: Ambulate with Assist Objective Vital Sign - Last Date Time Temp Pulse Resp B/P Pulse Ox O2 Delivery O2 Flow Rate FiO2 04/05/17 16:29 37.4 117 26 133/63 98 Room Air Intake and Output 04/04/17 04/04/17 04/05/17 Cumulative From/Thru 15:00 23:00 07:00 04/02/17 10:50 - 04/05/17 06:40 Intake Total 766.67 ml 2086 ml 2910 ml 33792.67 ml Output Total 330 ml 700 ml 4005 ml Balance 766.67 ml 1756 ml 2210 ml 9418.67 ml Intake Oral 720 ml 1510 ml 2790 ml IV Total 766.67 ml 1366 ml 1400 ml 64031.67 ml Output Urine Total 300 ml 700 ml 3900 ml Estimated Blood Loss 30 ml 105 ml # Voids 2 # Bowel Movements 0 0 Result Diagram: 04/04/17 0250 04/05/17 0330 Lab Test 04/02/17 11:26 04/02/17 12:30 04/02/17 13:28 04/02/17 15:43 Osmolality 295 (275-300) Thyroid Stimulating Hormone (TSH) 0.400uIU/mL (0.450-4.500) Streptozyme 45.0IU/mL (0.0-200.0) Urine Color Yellow (YELLOW) Urine Appearance Clear (CLEAR,HAZY) Urine pH 6.0 (5.0-8.0) Urine Specific [place] 1.010 (1.003-1.035) Urine Protein 100mg/dL (NEG,TRACE) Urine Glucose (UA) Negativemg/dL (NEGATIVE) Urine Ketones Negativemg/dL (NEGATIVE) Urine Occult Blood Moderate (NEGATIVE) Urine Nitrite Negative (NEGATIVE) Urine Bilirubin Small (NEGATIVE) Urine Ictotest Pos (Negative) Urine Urobilinogen 4.0mg/dL (NORMAL) Urine Leukocyte Esterase Negative (NEGATIVE) Urine RBC 0-2/hpf (0-2) Urine WBC 0-5/hpf (0-5) Urine Epithelial Cells Occasional/hpf (NONE-MOD) Urine Crystals None seen (NONE SEEN) Urine Bacteria Few/hpf (NONE-FEW) Urine Hyaline Casts None/lpf (NONE) Urine Granular Casts None seen (NONE SEEN) Urine Waxy Casts None seen (NONE SEEN) Urine Red Blood Cell Casts None seen (NONE SEEN) Urine White Blood Cell Casts None seen (NONE SEEN) Urine Mucus None seen (None Seen) Urine Trichomonas None seen (NONE SEEN) Urine Yeast None (NONE SEEN) Urinalysis Comment None Urine Culture Reflexed Not indicated Hold Urine Received (Received) Urine Osmolality 445mOs/kH2O (250-1200) Urine Random Sodium < 10mEq/L Cortisol 16.8ug/dL (.) Test 04/03/17 00:13 04/03/17 06:44 04/04/17 02:50 04/05/17 03:30 Lactic Acid Level 1.5mmol/L (0.4-2.0) Erythrocyte Sedimentation Rate 55mm/hr (0-15) Sodium Level 133mEq/L (134-144) Potassium Level 3.8mEq/L (3.5-5.2) Chloride Level 100mEq/L (97-108) Carbon Dioxide Level 20mmol/L (18-29) Blood Urea Nitrogen 19mg/dL (6-20) Estimat Glomerular Filtration Rate 168mL/min (>59) Glucose Level 113mg/dL (60-99) Calcium Level 7.9mg/dL (8.5-10.1) Total Bilirubin 1.3mg/dL (0.0-1.2) Aspartate Amino Transf (AST/SGOT) 28U/L (0-50) Alanine Aminotransferase (ALT/SGPT) 41U/L (0-44) Alkaline Phosphatase 207U/L (25-150) C-Reactive Protein 17.1mg/dL (0.0-0.5) Total Protein 4.8g/dL (6.4-8.4) Albumin 2.3g/dL (3.4-5.0) White Blood Count 13.0th/mm3 (3.8-10.1) Red Blood Count 3.35mil/mm3 (4.40-5.80) Hemoglobin 10.3g/dL (13.8-17.2) Hematocrit 29.8% (41.0-50.0) Mean Corpuscular Volume 89.0fL (81-100) Mean Corpuscular Hemoglobin 30.7pg (27.0-35.0) Mean Corpuscular Hemoglobin Concent 34.6% (32.0-37.0) Red Cell Distribution Width 14.0% (12.3-15.4) Platelet Count 316bil/L (150-400) Neutrophils (%) (Auto) 74% (40-74) Lymphocytes (%) (Auto) 16% (14-46) Monocytes (%) (Auto) 6% (4-12) Eosinophils (%) (Auto) 1% (0-5) Basophils (%) (Auto) 0% (0-3) Band Neutrophils % 2% (1-5) Hepatitis C Antibody >11.0s/co ratio Creatinine 0.56mg/dL (0.76-1.27) Exam General: Alert, Oriented X3, Cooperative, Mild Distress Lungs: Normal Air Movement Lower Extremities: Right: Edema localized (significant improvement since surgery yesterday. The patella is actually visible, significant reduction of erythema as well) Extremity warm Lower Extremity Pulses: Palpable: Right Dorsalis Pedis Right Posterior Tibal Podiatry WOUND : Wound Location/Description 30cm x 5cm medial right lower leg wound with a central retention stitch. It is 3 cm deep. The lateral incision is well coapted with the central stitch as well. There is no depth to it. Stippling around the wound is receding. There is moderate serosanguineous drainage on the previous dressing, mostly serous. No odor, no new necrosis, no new purulence. Less tenderness on palpation. The patient is able to move his toes and his knee now without any restriction. Surgical Cast or Splint: None Assessment & Plan Problems: (1) Necrotizing fasciitis due to Streptococcus pyogenes Plan: The right leg has improved significantly over the last 24 hours. My goal is to take the patient to the operating room tomorrow morning and irrigate the wound, debride any loose tissue, and if it is clean enough, apply negative pressure wound dressing. If there are no fevers between now and then and further reduction in the white blood cell count as well as his erythrocyte sedimentation rate, wound VAC therapy can be initiated. Today, I removed the secondary dressing and replaced it with sterile gauze, Kerlix wrap, to be overwrapped with Nii wrap by his nurse. The previous dressing contained moderate serous drainage and the Nii wrap was discarded as well. He tolerated the dressing change well after IV push of hydromorphone 1 mg. In addition, he would not tolerate removal of the packing, which can be removed in the operating room under sedation tomorrow Status: Acute ICD Code: M72.6 Pamela Kirby DPM Apr 05, 2017 17:42
--- NOTE | 2017-04-05 19:33 | NUR ---
CIWA/Tele No reports of CP/pressure/discomfort. Tele sinus tach 110s. BP within normal limits. No reports of SOB/dizziness. SPO2 on RA 98%. Denies cough. Resting RR 26-28, increases with pain. No reports of n/v/d/c or abdominal pain. Tolerating PO intake well, good appetite. Patient reports last BM on 04/03 as diarrhea, other documentation says 04/01. Passing flatus. Voiding pale alan urine with no complication. CIWA 7-9 throughout shift, received scheduled librium. Patient reports -04/03 throughout shift, reports pain as "just barely manageable" with 10mg jane Q4. Received 1mg IV dilaudid prior to wound dressing change. NPO at midnight tonight for surgery tomorrow.
[2017-04-05] MEDS ORDERED: Propofol 10 mg/mL 20 mL Inj ONE (22:39)
[2017-04-05] MEDS ORDERED: HYDROmorphone 1 mg/mL Inj ONE (22:39)
[2017-04-06] VITALS (16 sets, daily range): BP systolic 138–155; BP diastolic 67–96; PULSE 87–112; RESP 2–28; O2SAT 95–100
[2017-04-06] MEDS: PENICILLIN K IV SCH ×7 (00:03→21:50)
[2017-04-06] MEDS: DEXTROSE 5% IV SCH ×7 (00:03→21:50)
[2017-04-06] MEDS: Heparin 5,000 Unit/mL Inj SUBQ SCH ×3 (00:04→20:07)
[2017-04-06] MEDS: Clindamycin Inj 900 MG in IV Premix 1 EACH IV SCH ×3 (00:04→20:03)
[2017-04-06 00:48] LABS: Magnesium 1.6 mg/dL (1.6-2.6)
[2017-04-06 02:33] LABS: Mean Corpuscular Hemoglobin 30.1 pg (27.0-35.0); Mean Corpuscular Volume 88.1 fL (81-100)
--- NOTE | 2017-04-06 04:46 | NUR ---
TELE/PAIN Pt showed a change in ST wave, EKG done, nothing significant. potassium and magnesium labs done, showed normal levels. Pt has remained ST in 110's throughout the night. Pt c/o severe right lower extremity pain and received PO and IV pain medication for relief. No other issues noted @ this time.
[2017-04-06] MEDS ORDERED: Propofol 10,000 mCg/mL 20 mL Inj ONE (07:05)
[2017-04-06] MEDS ORDERED: HYDROmorphone 1 mg/mL Inj ONE (07:05)
[2017-04-06] MEDS: 0.9% Sodium Chloride 1,000 ML IV SCH ×2 (08:26→18:26)
[2017-04-06] MEDS ORDERED: Lactated Ringer's 1,000 ML IV ONE ×2 (08:27→08:38)
--- NOTE | 2017-04-06 08:28 | PCM.HPANE ---
Patient Data Surgeon Admitting Provider:Lia Cox DO Attending Provider:Flako Martinez MD Primary Care Physician:Breanna Other Provider: Reason for Visit Ams,Uti,Right Ankle Abscess Ht/WT & BMI Height (Feet): 6 Height (Inches): 0.00 Weight (Kilograms): 81.800 Body Mass Index 21.44 Allergies Coded Allergies: No Known Allergies (Unverified , 04/02/17) Past Anesthesia History Anesthesia History: Denies:: Abnormal Airway, Anesthesia Reactions, Difficult Intubation Diabetes History Hx Diabetes?: No MRSA MRSA: No Medications Hypertension Medication: No Home Meds Incl Beta Anca: No Reported Medications Albuterol HFA (Proair HFA)8.5 Gm Hfa.aer.ad2 Puffs INHALATION Q4H PRN For Shortness of Breath 04/02/17 Fluticasone/Salmeterol (Advair Hfa 115-21 Mcg Inhaler)12 Gm Hfa.aer.ad1 Puff IH BID 04/02/17 History History of ENT Problems?: No HEENT History: Denies:: Abnormal Airway Cataracts Difficult Intubation Dysphagia Glaucoma Hearing Problem Sinus Problem TMJ Denture Type: None Teeth Condition: Within Normal Limits Hx of Heart Problems?: No Cardiovascular History: Denies:: AICD Abdominal Aortic Aneurism Atrial Fibrillation Cardiac Surgery Chest Pain Congestive Heart Failure Coronary Artery Disease Edema Heart Murmur Hypertension Irregular Heartbeat Pacemaker Peripheral Vascular Rheumatic Fever Thrombophlebitis Valvular Heart Disease Hx of Respiratory Problem?: Yes Respiratory History: Positive for:: Asthma Pneumonia Other Resp Pertinent History: wooping cough Hx Neurologic Problems?: No Neurological History: Denies:: Alzheimer's Disease CVA Dementia Dizziness Headaches Multiple Sclerosis Parkinson's Disease Peripheral Neuropathy Seizures TIA Hx of GI Problems?: No Hx of Problems?: No Male Hx: Denies:: Prostate Problems Scrotal Mass Testicular Surgery Hx Musculoskeletal Problems?: No Hx of Psycho/Social Problems?: No Psycho Social History: Positive for:: Hx Depression Denies:: Anxiety Bipolar Disorder Suicide Attempt Hx Surgeries?: No Hx Any Other Health Problems?: No Other History: Denies:: Cancer Hospitalization Thyroid Disease History Blood Transfusions: Positive for:: Accept Blood Products? Denies:: Blood Transfusions Hx Diabetes: No Occupation: unemployed Hx Alcohol Use: Yes (a 5th of vodka daily)Alcoholic Drinks Per Day: states drinks 1/5 daily Hx Substance Use: Yes (IV heroin) Smoking Status: Current Every Day Smoker (half pack per day) Have You Smoked inLast 12 mo: YesApprox How Many Cigarettes/day: 1/2 pack per day Stop/Bang Treated for Sleep Apnea?: No Do You Have a CPAP Machine?: No S-Snoring: Do You Snore Loudly: No T-Tired: feel tired, fatigued: No O-Obsered: Observed not breath: No P-Blood Pressure: treated: No B- Body Mass Index > 35 kg/m2: No A- Age over 50: No N- Neck Large Circumference: No G- Gender Male: Yes KORY Total Score: 1 KORY Risk Assessment: Low Risk, <3 Yes Risk Assessment Category Category 1A: Patient has history of documented sleep apnea, and HAS NOT received any narcotic, sedative or anesthesia administration during this stay. Category 1B: Patient has history of documented sleep apnea, and HAS received any narcotic , sedative or anesthesia administration during this stay Category 2: Patient has SUSPECTED Obstructive Sleep Apnea, and HAS received any narcotic , sedative or anesthesia administration during this stay. Category 3: Patient has SUSPECTED Obstructive Sleep Apnea and HAS NOT received narcotic, sedative or anesthesia administration during this stay. Category 4: Outpatient in Procedural Areas with known sleep apnea or who screen positive for High Risk via the STOP/BANG questionnaire. Low Risk, <3 Yes Exam Exam Vital Signs Vital Signs Date Time Temp Pulse Resp B/P Pulse Ox O2 Delivery O2 Flow Rate FiO2 04/06/17 05:45 107 04/06/17 02:45 37.2 111 28 152/79 95 Room Air 04/06/17 00:47 107 28 98 Room Air General Appearance: Alert, Oriented X3, Cooperative, No Acute Distress HEENT/AIRWAY: MP 2 Lungs: Normal Air Movement Heart: Exam Unremarkable, Regular Rate/Rhythm, No Murmurs/Rubs/Gallops Meds/Labs/Diagnostics Labs Test 04/02/17 11:26 04/02/17 12:30 04/02/17 13:28 04/02/17 15:43 Osmolality 295 (275-300) Thyroid Stimulating Hormone (TSH) 0.400uIU/mL (0.450-4.500) Streptozyme 45.0IU/mL (0.0-200.0) Urine Color Yellow (YELLOW) Urine Appearance Clear (CLEAR,HAZY) Urine pH 6.0 (5.0-8.0) Urine Specific [place] 1.010 (1.003-1.035) Urine Protein 100mg/dL (NEG,TRACE) Urine Glucose (UA) Negativemg/dL (NEGATIVE) Urine Ketones Negativemg/dL (NEGATIVE) Urine Occult Blood Moderate (NEGATIVE) Urine Nitrite Negative (NEGATIVE) Urine Bilirubin Small (NEGATIVE) Urine Ictotest Pos (Negative) Urine Urobilinogen 4.0mg/dL (NORMAL) Urine Leukocyte Esterase Negative (NEGATIVE) Urine RBC 0-2/hpf (0-2) Urine WBC 0-5/hpf (0-5) Urine Epithelial Cells Occasional/hpf (NONE-MOD) Urine Crystals None seen (NONE SEEN) Urine Bacteria Few/hpf (NONE-FEW) Urine Hyaline Casts None/lpf (NONE) Urine Granular Casts None seen (NONE SEEN) Urine Waxy Casts None seen (NONE SEEN) Urine Red Blood Cell Casts None seen (NONE SEEN) Urine White Blood Cell Casts None seen (NONE SEEN) Urine Mucus None seen (None Seen) Urine Trichomonas None seen (NONE SEEN) Urine Yeast None (NONE SEEN) Urinalysis Comment None Urine Culture Reflexed Not indicated Hold Urine Received (Received) Urine Osmolality 445mOs/kH2O (250-1200) Urine Random Sodium < 10mEq/L Cortisol 16.8ug/dL (.) Test 04/03/17 00:13 04/03/17 06:44 04/04/17 02:50 04/06/17 00:20 Lactic Acid Level 1.5mmol/L (0.4-2.0) Erythrocyte Sedimentation Rate 55mm/hr (0-15) Total Bilirubin 1.3mg/dL (0.0-1.2) Aspartate Amino Transf (AST/SGOT) 28U/L (0-50) Alanine Aminotransferase (ALT/SGPT) 41U/L (0-44) Alkaline Phosphatase 207U/L (25-150) C-Reactive Protein 17.1mg/dL (0.0-0.5) Total Protein 4.8g/dL (6.4-8.4) Albumin 2.3g/dL (3.4-5.0) Neutrophils (%) (Auto) 74% (40-74) Lymphocytes (%) (Auto) 16% (14-46) Monocytes (%) (Auto) 6% (4-12) Eosinophils (%) (Auto) 1% (0-5) Basophils (%) (Auto) 0% (0-3) Band Neutrophils % 2% (1-5) Hepatitis C Antibody >11.0s/co ratio Magnesium Level 1.6mg/dL (1.6-2.6) Test 04/06/17 02:23 White Blood Count 16.6th/mm3 (3.8-10.1) Red Blood Count 3.19mil/mm3 (4.40-5.80) Hemoglobin 9.6g/dL (13.8-17.2) Hematocrit 28.1% (41.0-50.0) Mean Corpuscular Volume 88.1fL (81-100) Mean Corpuscular Hemoglobin 30.1pg (27.0-35.0) Mean Corpuscular Hemoglobin Concent 34.2% (32.0-37.0) Red Cell Distribution Width 14.6% (12.3-15.4) Platelet Count 428bil/L (150-400) Sodium Level 133mEq/L (134-144) Potassium Level 4.0mEq/L (3.5-5.2) Chloride Level 98mEq/L (97-108) Carbon Dioxide Level 24mmol/L (18-29) Blood Urea Nitrogen 11mg/dL (6-20) Creatinine 0.55mg/dL (0.76-1.27) Estimat Glomerular Filtration Rate 193mL/min (>59) Glucose Level 121mg/dL (60-99) Calcium Level 7.7mg/dL (8.5-10.1) Plan Impression Patient chart reviewed, patient interviewed and anesthestic plan with risks, benefits, and alternatives discussed, and informed consent obtained. NPO per Anesth. Guidelines: Yes ASA Physical Status: ASA3 Severe Disease Anesthetic Plan: GA Bene/Risks/Altern/Consents: Yes HP Complete Prior to Induction: Yes Isacc Degroot MD Apr 06, 2017 08:27
[2017-04-06] MEDS: Fluticasone-Salmeterol 100-50 Inhaler INHALATION SCH ×2 (08:30→21:50)
[2017-04-06] MEDS ORDERED: Lactated Ringer's 1,000 ML IV SCH (08:52)
[2017-04-06] MEDS ORDERED: Lactated Ringer's 500 ML IV PRN (08:52)
[2017-04-06] MEDS ORDERED: EPHEDrine Sulfate 50 mg/mL Inj IVPUSH PRN (08:55)
[2017-04-06] MEDS ORDERED: Phenylephrine 10,000 mCg/mL Inj IVPUSH PRN (08:55)
[2017-04-06] MEDS ORDERED: Dexamethasone 4 mg/mL Inj IVPUSH PRN (08:55)
[2017-04-06] MEDS ORDERED: fentaNYL-PF 50 mCg/mL 2 mL Inj IVPUSH PRN (08:55)
[2017-04-06] MEDS ORDERED: Ondansetron 2 mg/mL 2 mL Inj IVPUSH PRN (08:55)
[2017-04-06] MEDS ORDERED: hydrALAZINE 20 mg/mL Inj IVPUSH PRN (08:55)
[2017-04-06] MEDS ORDERED: Atropine 0.4 mg/mL Inj IVPUSH PRN (08:55)
[2017-04-06] MEDS ORDERED: Labetalol 5 mg/mL 20 mL Inj IV PRN (08:55)
[2017-04-06] MEDS: HYDROmorphone 1 mg/mL Inj IVPUSH PRN ×2 (09:36→09:41)
--- NOTE | 2017-04-06 09:39 | PCM.PODPO ---
Podiatry Operative Report Date of Service: Apr 06, 2017 Date of Service Apr 06, 2017 Pre Operative Diagnosis Open wound due to debridement for Necrotizing fasciitis, right lower leg Post Operative Diagnosis Open wound due to debridement for Necrotizing fasciitis, right lower leg Procedure Debridement of Skin, subcutaneous tissue, and fascia, right lower leg. Total wound size 30cm x 5cm and undermining 3-5cm throughout. Surgeon Surgeon:Pamela Kirby DPM Assistants: None Indication for Procedure Limb threatening infection Findings Clear serous fluid, mild subcutaneous edema and sparse necrosis. No chava purulence. Ascending cellulitis resolving. No sub-fascial extension. No new thrombosis of subcutaneous vessels. Good bleeding throughout the margins after further debridement and resection of nonviable tissue. No odor. Lateral incision yields no exudate. 10cm superficial incision was closed at this time. Details of Procedure The patient was taken to the operating room straight from his inpatient room to minimize contamination. He was transferred to the operating table in supine position, then placed under general anesthesia. The timeout protocol was completed, the patient's right leg scrubbed and pained with Betadine. The existing wound measured about 30cm long and 5cm wide, about 3-5cm undermining along the medial foot and lower leg. Clear, serous was expressed from the anterior margin only. Nonviable subcutaneous tissue, remnants of fascial necrosis, and nonviable superficial fascia fragments were excised with Metzenbaum scissors and a curette, full thickness. Once viable tissue was reached, the final wound measurements were 30cm x 7cm and undermining 3-5cm. Pulsed lavage and low pressure was used to irrigate the wound with 1L normal saline. The previous lateral incision wound was found to be clean and no further debridement was necessary along that area. It was sutured today. After thorough irrigation, 1" plain packing gauze was packed into the undermined areas of the main wound, no cautery was necessary, and 3 central 3-0 Prolene retention sutures placed to hold the skin edges from retracting. The dressing consisted of fluffs, ABD pads, 2 rolls of Kerlix and two 6" Nii wraps, lightly compressed. The patient was weaned off of anesthesia and taken to the recovery room with vitals stable and vascular status to right lower leg appearing viable. Grafts, Implants: None Complications There were no periprocedural complications identified. Condition Stable Anesthetic Administered: GA Drains: None Catheters: None Output, Estimated Blood Loss: 10 (ml) Blood Admin during surgery: No Surgical Cast or Splint: None Surgical Specimen Removed: No Specimen sent to Pathology: No Post Operative Plan No weightbearing. Range of motion exercises of toes, knee, and hip instructed. Dressing change tomorrow, possibly Wound VAC placement on Friday. Continue IV antibiotics. Continue coaching for range of motion, breathing, and sit up whenever possible. Pamela Kirby DPM Apr 06, 2017 09:39
--- NOTE | 2017-04-06 10:58 | PCM.ANEP1 ---
Post Anesthesia PACU Phase 1 Assessment Vital Signs Vital Signs Date Time Temp Pulse Resp B/P Pulse Ox O2 Delivery O2 Flow Rate FiO2 04/06/17 10:05 87 21 155/94 99 Room Air 04/06/17 09:55 37.5 88 23 154/83 98 Room Air 04/06/17 09:55 88 20 155/93 99 Room Air 04/06/17 09:50 90 16 154/93 100 Room Air 04/06/17 09:45 95 20 149/90 100 Room Air 04/06/17 09:41 100 20 148/91 99 Room Air 04/06/17 09:35 100 15 155/96 100 Room Air 04/06/17 09:28 37.5 103 26 147/67 96 Simple Mask 10 04/06/17 05:45 107 Anesthetic Administered: GA Level of Alertness: Awake, talking OLSON's with Equal Strength: Yes Pain: Yes Pain Scale Score: 6 Nausea or Vomiting: No CV Function & Hydration Stable: Yes Airway Device: Oxygen Delivery: Room Air Lungs: Normal Air Movement PACU Phase 2 Assessment Complications: No Follow up Care: No Patient Instructions Provided: N/A Isacc Degroot MD Apr 06, 2017 10:58
[2017-04-06] MEDS: chlordiazePOXIDE 25 mg Capsule PO SCH ×2 (12:07→20:30)
[2017-04-06] MEDS: Multivit-Miner-Folic Acid-Iron Tablet PO SCH (12:07)
[2017-04-06] MEDS: HYDROmorphone 0.5 mg/0.5 mL iSecure Syringe IVPUSH PRN ×2 (15:32→20:31)
--- NOTE | 2017-04-06 15:37 | PCM.PNMED ---
Subjective Date of Service Apr 06, 2017 Subjective 26-year-old male with history of alcohol and opioid use presents with acute necrotizing group A beta-hemolytic strep soft tissue infection of his right lower extremity, and alcohol withdrawal. He primarily reports right leg pain today. Diffuse arthralgias have improved. He remains sleepy and mildly encephalopathic, possibly related to pain medications. He endorses chronic anxiety and depression, which has been untreated. He does not endorse severe increased anxiety or agitation today. Today is day 5 since his last drink. Exam Vital Signs Vital Sign - Last Date Time Temp Pulse Resp B/P Pulse Ox O2 Delivery O2 Flow Rate FiO2 04/06/17 10:05 87 21 155/94 99 Room Air 04/06/17 10:00 37.1 04/06/17 09:28 10 Intake and Output 04/05/17 04/05/17 04/06/17 Cumulative From/Thru 15:00 23:00 07:00 04/02/17 10:50 - 04/06/17 05:58 Intake Total 1693 ml 1500 ml 46871.67 ml Output Total 3350 ml 1450 ml 8805 ml Balance -1657 ml 50 ml 7811.67 ml Intake Oral 780 ml 0 ml 3570 ml IV Total 913 ml 1500 ml 01447.67 ml Output Urine Total 3350 ml 1450 ml 8700 ml Estimated Blood Loss 105 ml # Voids 2 # Bowel Movements 0 0 Exam General: Thin man, mildly sedated, mild pain distress HEENT: sclerae anicteric, oral mucosa moist Chest: clear to auscultation Cardiac: S1S2, no murmur Abdomen: BS normal, non-tender, scaphoid Extremities: Right lower extremity bandage with less edema at knee; capillary refill is intact; light touch sensation is intact in right foot Neuro: A&O, cranial nerves symmetric, no tremor IVs and Medications IV Fluids Normal saline 100 mL per hour Medications Reviewed: Medications were reviewed in detail Medications Penicillin G plus clindamycin Lab and Diagnostics Result Diagram: 04/06/1722204/06/17222 X-Rays, CTs and MRIs PROCEDURE: X-RAY RIGHT ANKLE, MINIMUM THREE VIEWS ([id number]) IMPRESSION: Lateral soft tissue swelling. Dictated by: Real Magallanes M.D. on 04/02/2017 at 11:53 . Additional Diagnostics US Echo 04/03 Interpretation Summary The left ventricle is normal in size. The left ventricular ejection fraction is normal. The ejection fraction is estimated to be 60-65%. There are no focal wall motion abnormalities. The right ventricle is borderline dilated. The right ventricular systolic function is normal. The right ventricular systolic pressure is estimated at least 43 mmHg assuming a right atrial pressure of 8 mm Hg. The left atrium is moderately dilated. The right atrium is moderate to severely dilated. There is no significant valvular heart disease. The aortic root is normal size. There is a trace loculated pericardial effusion. Assessment & Plan # Sepsis secondary to soft tissue infection right foot, acute, present on admission. SIRS criteria secondary to tachycardia, leukocytosis, local infection. Lactic acid was 5.3 then 1.5 with hydration - Continue IV hydration as needed - Resolving #Group A beta-hemolytic strep soft tissue infection of right foot, acute. Initially vancomycin and Zosyn, clindamycin. Now on high-dose penicillin G. MRSA nasal swab was negative. Aso titers was normal. Wound cultures 2 positive for GABS. MRI of the right foot, but patient could not handle MRI due to anxiety. Plain films did not reveal osteomyelitis changes.Blood cultures are negative to date . TTE was done on 04/03 showed concern for left atrial dilation, but no vegetation. Has undergone daily surgical debridement 3. Clinic for wound VAC placement on 04/08 -- IV ketorolac, - Continue IV Dilaudid if needed for severe pain, otherwise convert to by mouth oxycodone for pain control # Alcohol withdrawal, acute. Baseline consumption of 1 quart vodka per day. Currently endorses anxiety. Exam with tremor and mild asterixis. - [facility] protocol, benzodiazepine, thiamine, hydration, electrolyte supplementation - Currently receiving scheduled low-dose Librium # IV drug use, chronic unknown current status -- Patient denies current use, his partner apparently is not so sure, ER documentation describes needles in the house. also described needles around the house # Anxiety and depression, acute and chronic. - Initiate sertraline - He will need outpatient PCP and follow-up for psych issues # Acute hyponatremia present on admission: Mild, serum sodium 127 on admission. Likely hypovolemic hyponatremia with excess free water replacement. - Isotonic crystalloid - Follow BMP # Acute sinus tachycardia present on admission improving. Heart rate 128 on admission persistent Sinus tachycardia due to sepsis; some degree of alcohol withdrawal possible. - Fluid resuscitation - Okay to discontinue telemetry # Hepatitis C infection. Likely chronic. Apparently a new diagnosis. No acute increase in transaminase. - Monitor clinically Resolving, stable and/or chronic problems: Chronic tobacco. Abuse, present on admission -- Nicotine patches are ordered Chronic asthma: Stable -- Continue patient's home albuterol, Flovent Alcohol abuse chronic, present on admission active - Social work for substance dependency evaluation when stable Resuscitation Status: CPR: Attempt Resuscitation Time spent 35 minutes Flako Martinez MD Apr 06, 2017 15:37
--- NOTE | 2017-04-06 16:18 | NUR ---
Transfer of Care Patient transferred to [facility] in a stable condition. Report called to JOHAN Jaime.
--- NOTE | 2017-04-06 16:20 | NUR ---
RECEIVED FROM [facility] Patient was medicated prior to transfer to the floor. Patient rated his pain as 5/10. Complained of a headache. Tylenol PO administered. Patient is working on his lunch upon transfer to the floor. Denies nausea. No emesis noted. Denies SOB. RLE is elevated in pillows. Dressing is CDI. Able to wiggle toes. Denies numbness/tingling. Patient is on remote tele. Per director telehealth patient is on sinus tach; HR-110's. Contact precautions continues. Oriented to room and call light.
--- NOTE | 2017-04-06 21:18 | PCM.ANEP1 ---
Post Anesthesia PACU Phase 1 Assessment Date of Service: Apr 03, 2017 Vital Signs Temp 36.8 C HR 105 BP 127/64 RR 16 SpO2 99% Anesthetic Administered: GA Level of Alertness: Awake, talking OLSON's with Equal Strength: Yes Pain: Yes (RN aware) Pain Scale Score: 7 Nausea or Vomiting: No CV Function & Hydration Stable: Yes Airway Device: none Oxygen Delivery: Room Air Lungs: Clear to Auscultation, Normal Air Movement Dermatome Level: Full Sensation PACU Phase 2 Assessment Complications: No Follow up Care: No Patient Instructions Provided: N/A Zak Mcnally MD Apr 06, 2017 21:18 PACU Phase 2 Assessment Complications: No Follow up Care: No Patient Instructions Provided: N/Zak Lebron MD Apr 06, 2017 21:18
--- NOTE | 2017-04-06 23:17 | NUR ---
CIWA/PAIN at start of shift pt had a CIWA score of 11. nurse was going to give him PRN ativan however after talking to pt he stated he did not feel his agitation and anxeity was withdrawal related. he said his withdrawal symptoms had been mild. he said he thought he was feeling sweaty and anxious because his pain in his leg was out of control and a 9/10. so nurse did not administer ativan but instead gave him 1mg of IV dilaudid. upon reassessment pt was visibly more relaxed, said his pain was coming down and denied any withdrawal symptoms. nurse discussed with pt the importance of staying a head of his pain and notifying nursing staff before his pain becomes uncontrolled. will continue to monitor. Addendum: 04/07/17 at 0549 by GERARDO JUAREZ RN patient has required oxycodone q4hrs to control his pain and IV dilaudid for breakthrough pain. CIWA score has remained low at 3 for the remainder of the shift.
[2017-04-07] VITALS (7 sets, daily range): BP systolic 131–167; BP diastolic 71–85; PULSE 71–100; RESP 18–22; O2SAT 96–99
[2017-04-07] MEDS: DEXTROSE 5% IV SCH ×6 (01:42→21:38)
[2017-04-07] MEDS: PENICILLIN K IV SCH ×6 (01:42→21:38)
[2017-04-07] MEDS: HYDROmorphone 0.5 mg/0.5 mL iSecure Syringe IVPUSH PRN ×4 (02:16→20:54)
[2017-04-07] MEDS: Heparin 5,000 Unit/mL Inj SUBQ SCH ×3 (03:27→17:08)
[2017-04-07] MEDS: Clindamycin Inj 900 MG in IV Premix 1 EACH IV SCH ×3 (03:28→17:07)
[2017-04-07] MEDS: 0.9% Sodium Chloride 1,000 ML IV SCH ×2 (04:39→17:00)
[2017-04-07] MEDS: Multivit-Miner-Folic Acid-Iron Tablet PO SCH (08:01)
[2017-04-07] MEDS: Fluticasone-Salmeterol 100-50 Inhaler INHALATION SCH ×2 (08:01→20:53)
[2017-04-07] MEDS: chlordiazePOXIDE 25 mg Capsule PO SCH ×2 (08:02→20:53)
[2017-04-07 08:36] LABS: Mean Corpuscular Hemoglobin 30.9 pg (27.0-35.0); Mean Corpuscular Volume 91.7 fL (81-100); Platelet Count 535 bil/L (150-400)
[2017-04-07 08:52] LABS: Magnesium 1.8 mg/dL (1.6-2.6)
[2017-04-07 09:59] LABS: BASOPHILS % (AUTO) 0 % (0-3); EOSINOPHILS % (AUTO) 1 % (0-5); MONOCYTES % (AUTO) 9 % (4-12); NEUTROPHILS % (AUTO) 74 % (40-74)
--- NOTE | 2017-04-07 11:19 | NUR ---
NUTRITION FOLLOW UP: ASSESS:26 YO male with acute necrotizing strep of R lower extremity, alcohol withdrawal. Pt currently receiving multiple debridements for limb threatening infection, possible wound VAC on 04/08 per notes. Pt eating well. PMHx:Asthma, IV drug use (heroin, meth), ETOH, marijuana, smoking. DIET:General. PO 100% LABS: Reviewed. 04/03- Alb 2.3 MEDICATIONS: Reviewed. MVI, vitamin B1. NUTRITION FOCUSED PHYSICAL ASSESSMENT: GI symptoms / stool: 1 BM 04/07Braden: 16. Skin Integrity: No other issues reported. ANTHROPOMETRICS: Current Wt: 81.6 kgBMI: 24.4 kg/m2.Admit weight: 70.4 kg IBW: 80.9 (87% IBW) ESTIMATED NEEDS (WOUNDS, UNDERWEIGHT): Calories: 2112 - 2816 kcal (30 - 40 kcal / kg BW) Protein: 106 - 141 g protein (1.5 - 2.0 g / kg BW) NUTRITION DIAGNOSIS: 1) Increased nutrient needs related to extensive abscess, possible AKA / BKA, as evidenced by multiple I&D's, OR today---PERSISTS. INTERVENTION: 1) Continue Ensure / Magic Cups / Gelatein on trays. MONITOR/EVALUATE: Diet / supplement tolerance, PO intake, labs, GI/nutrition status. Follow up per moderate nutrition risk guidelines.
[2017-04-07] MEDS: Ketorolac 15 mg/mL Inj IVPUSH PRN (13:14)
--- NOTE | 2017-04-07 15:31 | PCM.PNMED ---
Subjective Date of Service Apr 07, 2017 Subjective complains of foot pain but otherwise denies any other new issues/complaints Exam Vital Signs Vital Sign - Last Date Time Temp Pulse Resp B/P Pulse Ox O2 Delivery O2 Flow Rate FiO2 04/07/17 15:04 36.6 19 131/73 98 Room Air 04/07/17 08:59 85 04/06/17 09:28 10 Intake and Output 04/06/17 04/06/17 04/07/17 Cumulative From/Thru 15:00 23:00 07:00 04/02/17 10:50 - 04/07/17 05:45 Intake Total 500 ml 400 ml 600 ml 25489.67 ml Output Total 10 ml 2075 ml 1220 ml 97244 ml Balance 490 ml -1675 ml -620 ml 6006.67 ml Intake Oral 400 ml 600 ml 4570 ml IV Total 500 ml 08382.67 ml Output Urine Total 2075 ml 1220 ml 22121 ml Estimated Blood Loss 10 ml 115 ml # Voids 2 # Bowel Movements 0 1 1 General: Alert, Cooperative, No Acute Distress Head: Normal Eyes: Scleral Anicteric Mouth: Mucous Membr Moist/Temple Neck: Supple Chest & Lungs: Chest Wall Normal, Clear to auscultation & percussion Cardiovascular: Regular Rate/Rhythm Abdomen: Non-tender, Non-distended, Normoactive bowel tones, Soft Extremities: Other (Right lower extremity bandage (c/d/i)) Neurological: Grossly Neurologically Intact, Normal Speech Additional Information: Psych: Calm, appropriate IVs and Medications Medications Reviewed: Medications were reviewed in detail Lab and Diagnostics Result Diagram: 04/07/17 0804 04/07/17 0804 X-Rays, CTs and MRIs PROCEDURE: X-RAY RIGHT ANKLE, MINIMUM THREE VIEWS ([id number]) IMPRESSION: Lateral soft tissue swelling. Dictated by: Real Magallanes M.D. on 04/02/2017 at 11:53 . Additional Diagnostics US Echo 04/03 Interpretation Summary The left ventricle is normal in size. The left ventricular ejection fraction is normal. The ejection fraction is estimated to be 60-65%. There are no focal wall motion abnormalities. The right ventricle is borderline dilated. The right ventricular systolic function is normal. The right ventricular systolic pressure is estimated at least 43 mmHg assuming a right atrial pressure of 8 mm Hg. The left atrium is moderately dilated. The right atrium is moderate to severely dilated. There is no significant valvular heart disease. The aortic root is normal size. There is a trace loculated pericardial effusion. Assessment & Plan 26-year-old male with history of alcohol and opioid use presents with acute necrotizing group A beta-hemolytic strep soft tissue infection of his right lower extremity, and alcohol withdrawal. # Acute sepsis secondary to soft tissue infection right foot, present on admission. - SIRS criteria secondary to tachycardia, leukocytosis, local infection. Lactic acid was 5.3 then 1.5 with hydration - Continue IV hydration as needed - Resolving # Group A beta-hemolytic strep soft tissue infection of right foot, acute, present on admission. - Initially vancomycin, Zosyn, clindamycin. Now on high-dose penicillin G. - MRSA nasal swab was negative. - Aso titers was normal. - Wound cultures 2 positive for GABS. - MRI of the right foot, but patient could not handle MRI due to anxiety. - Plain films did not reveal osteomyelitis changes. - Blood cultures are negative to date . - TTE was done on 04/03 showed concern for left atrial dilation, but no vegetation. - Has undergone daily surgical debridement 3. - Clinic for wound VAC placement on 04/08 - IV ketorolac, - Continue IV Dilaudid if needed for severe pain, otherwise convert to by mouth oxycodone for pain control # Acute alcohol withdrawal, present on admission. - Baseline consumption of 1 quart vodka per day. - CIWA protocol, benzodiazepine, thiamine, hydration, electrolyte supplementation # IV drug use, chronic - Patient denies current use, his partner apparently is not so sure, ER documentation describes needles in the house. # Anxiety and depression, acute and chronic. - Initiated Sertraline on 04/06 - He will need outpatient PCP and follow-up for psych issues # Acute hyponatremia present on admission. Ongoing. - Likely hypovolemic hyponatremia with excess free water replacement. - Isotonic crystalloid - Follow BMP # Acute sinus tachycardia present on admission, ongoing. - Sinus tachycardia due to sepsis; some degree of alcohol withdrawal possible. - Fluid resuscitation # Hepatitis C infection. Likely chronic. - Apparently a new diagnosis. No acute increase in transaminase. - Monitor clinically Resolving, stable and/or chronic problems: Chronic tobacco. Abuse, present on admission -- Nicotine patches are ordered Chronic asthma: Stable -- Continue patient's home albuterol, Flovent Alcohol abuse chronic, present on admission active - Social work for substance dependency evaluation when stable Dispo: 2-4 days pending above issues Resuscitation Status: CPR: Attempt Resuscitation Jordan Otoole Apr 07, 2017 15:31
--- NOTE | 2017-04-07 19:39 | NUR ---
Pain management Pts c/o 06/03 pain this morning several hours after PO oxycodone administered. I gave 1 mg. IV dilaudid, but pt. still complained of strong pain afterwards. Pt. stated relief after IV ketorolac was given, along with the dilaudid. Pt. has been in bed most of the day, but is standby assist and non-weight bearing on RLE. Appropriate with call light, and is very pleasant and cooperative.
--- NOTE | 2017-04-07 21:59 | PROG NOTE ---
[address] [address] PROGRESS NOTE PATIENT: SONJA BETTENCOURT : 1990 MR#: [id number] ADMIT: 04/02/2017 JOB ID: [id number] DATE: 04/07/2017 REASON FOR FOLLOWUP: Group A streptococcal necrotizing fasciitis right lower extremity. INTERVAL HISTORY: Over the weekend, the patient has been back to the operating room for additional re-evaluations of his leg. Though some minor debridements have been required, the patient has kept most of his leg structures intact and is now definitely improving. He denies any fevers, chills, or sweats today. He has pain around his right foot and ankle which is underneath a very heavy postoperative dressing. No respiratory or GI symptoms are noted. He has been having issues with alcohol and/or narcotic withdrawal, but those have gotten better as well over the weekend. PHYSICAL EXAMINATION: Reveals a somewhat anxious afebrile gentleman. Temp 36.7, pulse 85, respiratory rate 19, blood pressure 131/73. He is saturating well on room air. Examination of the eyes unremarkable. Oral cavity negative. Lungs clear. Cardiac tones without murmur. Abdomen benign. His right leg from just below the knee all the way down to the toes is wrapped in a huge postop dressing that was applied in the OR and I did not remove it. The protruding toes are viable and the knee above is much improved over what I saw three days ago. He now has full range of motion, the knee is no longer warm and is no longer tender. LABORATORIES: Include white blood count 16,000 which is really unchanged over the last several days, 2% metamyelocytes still present in that with a platelet count of 535. His creatinine is 0.57. Hep C is positive. HIV is negative. Multiple cultures have grown group A strep. No new imaging is available. IMPRESSION: This patient has improved dramatically over the past few days. There was certainly question as to whether he would be able to keep his right lower extremity or he might suffer a below-knee amputation or even an above-knee amputation due to progressive group A strep necrotizing soft tissue infection, but at this point he has definitely turned the corner and seems much improved. I am still concerned though about the degree of his left shift and the white count and he certainly still requires aggressive antibiotic and surgical management. RECOMMENDATIONS: 1. Will continue with high-dose penicillin, as well as clindamycin, for the time being. 2. I will continue to closely follow this patient with you. 3. I think eventually we will discharge him with a single dose of oritavancin, as well as oral clindamycin, for some continued aggressive ongoing therapy given the severity of this infection and his questionable compliance and substance abuse.
[2017-04-08] VITALS (8 sets, daily range): BP systolic 139–154; BP diastolic 63–86; PULSE 80–90; RESP 17–22; O2SAT 95–98
[2017-04-08] MEDS: Clindamycin Inj 900 MG in IV Premix 1 EACH IV SCH ×3 (01:19→16:37)
[2017-04-08] MEDS: HYDROmorphone 0.5 mg/0.5 mL iSecure Syringe IVPUSH PRN ×5 (01:19→22:59)
[2017-04-08] MEDS: DEXTROSE 5% IV SCH ×6 (02:03→21:59)
[2017-04-08] MEDS: PENICILLIN K IV SCH ×6 (02:03→21:59)
[2017-04-08] MEDS: Heparin 5,000 Unit/mL Inj SUBQ SCH ×4 (02:06→16:37)
[2017-04-08] MEDS: 0.9% Sodium Chloride 1,000 ML IV SCH ×3 (02:06→17:11)
[2017-04-08 05:34] LABS: Mean Corpuscular Volume 91.3 fL (81-100); Platelet Count 636 bil/L (150-400)
[2017-04-08 06:02] LABS: BASOPHILS % (AUTO) 0 % (0-3); EOSINOPHILS % (AUTO) 4 % (0-5); MONOCYTES % (AUTO) 5 % (4-12); NEUTROPHILS % (AUTO) 68 % (40-74)
[2017-04-08 06:04] LABS: Magnesium 1.9 mg/dL (1.6-2.6)
[2017-04-08 06:11] LABS: INR 0.98 ratio
--- NOTE | 2017-04-08 06:28 | NUR ---
Pain/CIWA Pt c/o pain 7-06/03 to Rt foot, alternating between oxycodone 10mg and dilaudid 1mg IV. Able to obtain pain score to 5/10 Pt detoxing, note dot be very anxious, sweating profusely, and slight agitation but always pleasant. IV lorazepam given throughout night and Pt has been calmer this AM, sleeping well. Call light in reach, at bedside, care continues
--- NOTE | 2017-04-08 08:21 | PCM.PNPOD ---
Subjective Date of Service: Apr 07, 2017 Date of Service: Apr 07, 2017 Visit Information: Reason for Visit Ams,Uti,Right Ankle Abscess Surgery/Surgery Date Post-Op Day # 1 Date of Admission: Apr 02, 2017 at 13:13 Hospital Day # Subjective: 26-year-old male evaluated resting comfortably in bed for treatment of necrotizing fasciitis of the right lower extremity. Patient states that his pain has improved since he was last evaluated by Dr. Truong yesterday and greatly since he was last evaluated by me 4 days ago he denies any recent history of fevers or chills. No new issues or complaints overnight. Postop General: No Complaints Gastrointestinal: Good Appetite Pain Management: PO Objective Vital Sign - Last Date Time Temp Pulse Resp B/P Pulse Ox O2 Delivery O2 Flow Rate FiO2 04/08/17 00:55 36.9 86 22 154/70 98 Room Air 04/06/17 09:28 10 Intake and Output 04/07/17 04/07/17 04/08/17 Cumulative From/Thru 15:00 23:00 07:00 04/02/17 10:50 - 04/08/17 06:09 Intake Total 1680 ml 2417 ml 1058 ml 68337.67 ml Output Total 4550 ml 01148 ml Balance 1680 ml -2133 ml 1058 ml 6611.67 ml Intake Oral 1080 ml 5650 ml IV Total 1680 ml 1337 ml 1058 ml 48979.67 ml Output Urine Total 4550 ml 98252 ml Estimated Blood Loss 115 ml # Voids 2 # Bowel Movements 0 1 Result Diagram: 04/08/17 0452 04/08/17 0452 Lab Test 04/02/17 11:26 04/02/17 12:30 04/02/17 13:28 04/02/17 15:43 Osmolality 295 (275-300) Thyroid Stimulating Hormone (TSH) 0.400uIU/mL (0.450-4.500) Streptozyme 45.0IU/mL (0.0-200.0) Urine Color Yellow (YELLOW) Urine Appearance Clear (CLEAR,HAZY) Urine pH 6.0 (5.0-8.0) Urine Specific [place] 1.010 (1.003-1.035) Urine Protein 100mg/dL (NEG,TRACE) Urine Glucose (UA) Negativemg/dL (NEGATIVE) Urine Ketones Negativemg/dL (NEGATIVE) Urine Occult Blood Moderate (NEGATIVE) Urine Nitrite Negative (NEGATIVE) Urine Bilirubin Small (NEGATIVE) Urine Ictotest Pos (Negative) Urine Urobilinogen 4.0mg/dL (NORMAL) Urine Leukocyte Esterase Negative (NEGATIVE) Urine RBC 0-2/hpf (0-2) Urine WBC 0-5/hpf (0-5) Urine Epithelial Cells Occasional/hpf (NONE-MOD) Urine Crystals None seen (NONE SEEN) Urine Bacteria Few/hpf (NONE-FEW) Urine Hyaline Casts None/lpf (NONE) Urine Granular Casts None seen (NONE SEEN) Urine Waxy Casts None seen (NONE SEEN) Urine Red Blood Cell Casts None seen (NONE SEEN) Urine White Blood Cell Casts None seen (NONE SEEN) Urine Mucus None seen (None Seen) Urine Trichomonas None seen (NONE SEEN) Urine Yeast None (NONE SEEN) Urinalysis Comment None Urine Culture Reflexed Not indicated Hold Urine Received (Received) Urine Osmolality 445mOs/kH2O (250-1200) Urine Random Sodium < 10mEq/L Cortisol 16.8ug/dL (.) Test 04/03/17 00:13 04/03/17 06:44 04/04/17 02:50 04/07/17 08:04 Lactic Acid Level 1.5mmol/L (0.4-2.0) Erythrocyte Sedimentation Rate 55mm/hr (0-15) Total Bilirubin 1.3mg/dL (0.0-1.2) Aspartate Amino Transf (AST/SGOT) 28U/L (0-50) Alanine Aminotransferase (ALT/SGPT) 41U/L (0-44) Alkaline Phosphatase 207U/L (25-150) C-Reactive Protein 17.1mg/dL (0.0-0.5) Total Protein 4.8g/dL (6.4-8.4) Albumin 2.3g/dL (3.4-5.0) Hepatitis C Antibody >11.0s/co ratio Metamyelocytes % 2% (0-0) Hematology Comments Rbc Test 04/08/17 04:52 White Blood Count 11.5th/mm3 (3.8-10.1) Red Blood Count 3.35mil/mm3 (4.40-5.80) Hemoglobin 10.4g/dL (13.8-17.2) Hematocrit 30.6% (41.0-50.0) Mean Corpuscular Volume 91.3fL (81-100) Mean Corpuscular Hemoglobin 31.0pg (27.0-35.0) Mean Corpuscular Hemoglobin Concent 34.0% (32.0-37.0) Red Cell Distribution Width 14.9% (12.3-15.4) Platelet Count 636bil/L (150-400) Neutrophils (%) (Auto) 68% (40-74) Lymphocytes (%) (Auto) 20% (14-46) Monocytes (%) (Auto) 5% (4-12) Eosinophils (%) (Auto) 4% (0-5) Basophils (%) (Auto) 0% (0-3) Band Neutrophils % 3% (1-5) Prothrombin Time 10.5sec (8.1-12.5) Prothromb Time International Ratio 0.98ratio Activated Partial Thromboplast Time 26.7sec (22.8-33.0) Sodium Level 132mEq/L (134-144) Potassium Level 5.2mEq/L (3.5-5.2) Chloride Level 97mEq/L (97-108) Carbon Dioxide Level 23mmol/L (18-29) Blood Urea Nitrogen 14mg/dL (6-20) Creatinine 0.55mg/dL (0.76-1.27) Estimat Glomerular Filtration Rate 193mL/min (>59) Glucose Level 120mg/dL (60-99) Calcium Level 8.2mg/dL (8.5-10.1) Magnesium Level 1.9mg/dL (1.6-2.6) Exam General: Alert, Oriented X3, Cooperative, Mild Distress Lungs: Clear to Auscultation, Normal Air Movement Lower Extremities: Right: Edema localized (significant improvement since surgery yesterday. The patella is actually visible, significant reduction of erythema as well) Extremity warm Lower Extremity Pulses: Palpable: Right Dorsalis Pedis Right Posterior Tibal Podiatry WOUND : Wound Location/Description Right lower extremity incision and drainage wounds. Marked decrease in overall edema of the right lower extremity. Medial ankle and distal leg incision measures approximately 30 cm in length and 5 cm in width with retention sutures intact and in place. There is no surrounding erythema serous drainage is noted without any purulent discharge there is no noted malodor no signs of continue to progress of infection. The lateral ankle incision is well coapted with all sutures intact and in place. Incision General Appearence: No Erythemia Dressing & Drainage Status: No Odor Surgical Cast or Splint: None Assessment & Plan Impression Improving necrotizing fasciitis of the right lower extremity Problems: (1) Necrotizing fasciitis due to Streptococcus pyogenes Plan: Patient has shown significant improvement since my last evaluation. At this time it looks like his infection is clearly under control. Dressing change today with a wet-to-dry dressing placed to the wound bed of the right lower extremity and dressed with sterile 4 x 4 gauze Kerlix and a Nii bandage under minimal compression. This patient will likely be transitioned into a wound VAC starting tomorrow 04/08/2017. Continue IV antibiotic therapy per Dr. Spencer recommendations We will consider return to the operating room for final washout and debridement Patient will likely be stable for discharge once stable from medical standpoint following his next debridement Strict nonweightbearing right lower extremity Status: Acute ICD Code: M72.6 Armando Mcdaniels DPM Apr 08, 2017 08:21
[2017-04-08] MEDS: Fluticasone-Salmeterol 100-50 Inhaler INHALATION SCH ×2 (08:58→20:08)
[2017-04-08] MEDS: chlordiazePOXIDE 25 mg Capsule PO SCH ×2 (08:59→20:08)
[2017-04-08] MEDS: Multivit-Miner-Folic Acid-Iron Tablet PO SCH (08:59)
--- NOTE | 2017-04-08 10:04 | PROG NOTE ---
[address] [address] PROGRESS NOTE PATIENT: SONJA BETTENCOURT : 1990 MR#: [id number] ADMIT: 04/02/2017 JOB ID: [id number] DATE: 04/08/2017 INFECTIOUS DISEASE FOLLOWUP NOTE: REASON FOR FOLLOWUP: Necrotizing group A strep infection of right lower extremity, and hepatitis C. INTERVAL HISTORY: The patient reports he is finally starting to feel better. He no longer has fevers, chills, sweats, chest pain, shortness of breath, or nausea. His right lower extremity pain is present but diminished, and he has increasing range of motion around the right foot and ankle area. I did not remove the dressings today at the request of Podiatry but I did discuss the case in detail with Dr. Mcdaniels who did remove and change all the dressings yesterday evening. He reports that the foot has finally turned the corner, and there are now no new areas of purulence or infection. A large defect is still present, and there are plans to place a wound VAC in the near future. At this point, the patient is still in the hospital awaiting additional dressing changes, the wound VAC and discharge planning. Overnight, a couple of major lab results have been received. One is that the patient has hep C. In speaking to him, his hep C antibody has been previously negative, though he is not exactly sure when. I informed him of this result and told him we did not know if he had active infection or not, as there is a 1/3 chance or so that he is cured himself and will not require any treatment. Additional studies have been ordered. There is also a tentative positive on an HIV, which has not yet been recorded in our computer but which is noted in the [employer] computer. This is only a verbal report from the animal laboratory helper and I have still no written documentation of this, so I would hesitate to tell the patient at this point, though I am starting a serologic workup that will be required to evaluate and treat HIV if this is indeed confirmed. The patient has no knowledge of this at this point, and I would await written confirmation before telling him. PHYSICAL EXAMINATION: Reveals an afebrile man. Temperature 36.6. He has been afebrile now for almost 72 hours. Pulse 87, respiratory rate 20, blood pressure 139/77. He is saturating well on room air. He is in no acute distress. Examination of the eyes without conjunctivitis. The oral cavity is notable for thrush, and this is a new finding. The neck is without significant adenopathy. The lungs are clear. Cardiac tones normal. Abdomen without hepatosplenomegaly or ascites. He does not have a [place]. The right lower extremity is wrapped from the knee down to the mid foot on the right. The patient has increasing range of motion around his right foot and ankle though, and his right forefoot appears benign. No skin rash is noted. LABORATORIES: Include white count 11.5, still with high platelet count. Left shift has resolved. Creatinine 0.64. Total bili 1.3. AST and ALT are normal. Last CRP was 17. Urinalysis not repeated. Hep C antibody is positive. Streptozyme negative and HIV shows pending but, as mentioned, the animal laboratory helper told me that the preliminary antibody result for HIV is indeed positive. Micro includes multiple cultures from the wounds growing group A strep. We do not have any positive blood cultures. IMAGING: No new imaging is available. IMPRESSION: This case is growing more complicated. The group A strep necrotizing fasciitis of the right ankle and lower leg region has been stopped through vigorous debridement and aggressive antibiotic treatment. At this point, I would continue with high-dose IV penicillin and clindamycin until such time as the patient is ready to leave the hospital which will probably be later this week. We will then transition to oritavancin plus oral clindamycin. In terms of his hepatitis C, will need to evaluate and see if this is a true positive and that if he is still infected or was he infected and then spontaneously resolved the infection which is certainly possible. The biggest outstanding issue here is the possible positive human immunodeficiency virus. This will require confirmation with viral load but I suspect, given the fact he seems to have recently acquired hepatitis C, that it is likely he has also acquired human immunodeficiency virus. Note that the patient has a history of intravenous drug use. RECOMMENDATIONS: 1. Continue with high-dose IV penicillin and high-dose IV clindamycin until the patient is ready to leave, which will probably be later this week. 2. When he is ready to go, I would give him a single dose of oritavancin 1400 mg IV x1. As I will be out of town for the next six days, just indicate to the pharmacist that this has been discussed and approved by me. 3. In addition to the oritavancin at the time of discharge I would give the patient clindamycin 300 q.i.d. p.o. for about 7 more days. 4. I need to see the patient in my clinic April 16, and I have given him a card that indicates this. 5. Hepatitis C viral load has been ordered, as well as hep C genotype. 6. To facilitate his HIV workup, I have ordered HIV viral load, HIV genotype, RPR, toxo antibody, complete hepatitis B and A serologies, and urine gonorrhea and chlamydia testing. 7. The patient now has thrush, which certainly would go along with a diagnosis of HIV. Because of this, will be ordering a CD4 count, of course, as well as starting fluconazole. 8. The fluconazole dose will be 200 a day, and I would continue that for two weeks or so total. 9. An HLA-B 5701 will be ordered to facilitate HIV treatment initiation. 10. As noted, it will be essential for me to see this patient in clinic on April 16 to inform the patient further about his hepatitis C and HIV status, as well as to discuss this with his and to consider initiation of additional therapies for HIV and/or hepatitis C.
--- NOTE | 2017-04-08 11:40 | PCM.PNMED ---
Subjective Date of Service Apr 08, 2017 Subjective Continues to have leg pain. Afebrile Exam Vital Signs Vital Sign - Last Date Time Temp Pulse Resp B/P Pulse Ox O2 Delivery O2 Flow Rate FiO2 04/08/17 10:17 83 04/08/17 08:38 36.6 20 139/77 96 Room Air 04/06/17 09:28 10 Intake and Output 04/07/17 04/07/17 04/08/17 Cumulative From/Thru 15:00 23:00 07:00 04/02/17 10:50 - 04/08/17 06:09 Intake Total 1680 ml 2417 ml 1058 ml 68430.67 ml Output Total 4550 ml 01935 ml Balance 1680 ml -2133 ml 1058 ml 6611.67 ml Intake Oral 1080 ml 5650 ml IV Total 1680 ml 1337 ml 1058 ml 27710.67 ml Output Urine Total 4550 ml 26800 ml Estimated Blood Loss 115 ml # Voids 2 # Bowel Movements 0 1 Exam General: Alert, Cooperative, No Acute Distress Head: Normal Eyes: Scleral Anicteric Mouth: Mucous Membr Moist/[place], oral thrush Neck: Supple Chest & Lungs: Chest Wall Normal, Clear to auscultation & percussion Cardiovascular: Regular Rate/Rhythm Abdomen: Non-tender, Non-distended, Normoactive bowel tones, Soft Extremities: Other (Right lower extremity bandage (c/d/i)) Neurological: Grossly Neurologically Intact, Normal Speech Additional Information: Psych: Calm, appropriate IVs and Medications Medications Reviewed: Medications were reviewed in detail Lab and Diagnostics Result Diagram: 04/08/17 0452 04/08/17 0452 X-Rays, CTs and MRIs PROCEDURE: X-RAY RIGHT ANKLE, MINIMUM THREE VIEWS ([id number]) IMPRESSION: Lateral soft tissue swelling. Dictated by: Real Magallanes M.D. on 04/02/2017 at 11:53 . Additional Diagnostics US Echo 04/03 Interpretation Summary The left ventricle is normal in size. The left ventricular ejection fraction is normal. The ejection fraction is estimated to be 60-65%. There are no focal wall motion abnormalities. The right ventricle is borderline dilated. The right ventricular systolic function is normal. The right ventricular systolic pressure is estimated at least 43 mmHg assuming a right atrial pressure of 8 mm Hg. The left atrium is moderately dilated. The right atrium is moderate to severely dilated. There is no significant valvular heart disease. The aortic root is normal size. There is a trace loculated pericardial effusion. Assessment & Plan 26-year-old male with history of alcohol and opioid use presents with acute necrotizing group A beta-hemolytic strep soft tissue infection of his right lower extremity, and alcohol withdrawal. # Acute sepsis secondary to soft tissue infection right foot, present on admission. - SIRS criteria secondary to tachycardia, leukocytosis, local infection. Lactic acid was 5.3 then 1.5 with hydration - Continue IV hydration as needed - Resolving # Necrotizing fasciitis/Group A beta-hemolytic strep soft tissue infection of right foot, acute, present on admission. - Initially vancomycin, Zosyn, clindamycin. Now on high-dose penicillin G. And clindamycin - MRSA nasal swab was negative. - Aso titers was normal. - Wound cultures 2 positive for GABS. - MRI of the right foot, but patient could not handle MRI due to anxiety. - Plain films did not reveal osteomyelitis changes. - Blood cultures are negative to date . - TTE was done on 04/03 showed concern for left atrial dilation, but no vegetation. - Has undergone daily surgical debridement 3. - wound VAC placement on 04/08 - IV ketorolac, - Continue IV Dilaudid if needed for severe pain, otherwise convert to by mouth oxycodone for pain control -will give a dose of oritavancin 1200mg and continue po clindamycin 300mg qid for 1 week up on discharge per ID . Follow-up with ID on April 16 # Hepatitis C infection. Likely chronic. - Apparently a new diagnosis. No acute increase in transaminase. - Monitor clinically -viral load sent ,follow up with ID or GI outpatient # suspected HIV Infection , new diagnosis, not yet revealed to patient awaiting confirmatory test -prelim test reportedly positive for HIV, awaiting confirmatory test results. Will developmental training counselor patient once confirmatory test is available #Oral candidiasis -Continue fluconazole IV -Fluconazole by mouth upon discharge to complete 2 weeks treatment # Acute alcohol withdrawal, present on admission. - Baseline consumption of 1 quart vodka per day. - CIWA protocol, benzodiazepine, thiamine, hydration, electrolyte supplementation # IV drug use, chronic - Patient denies current use, his partner apparently is not so sure, ER documentation describes needles in the house. # Anxiety and depression, acute and chronic. - Initiated Sertraline on 04/06 - He will need outpatient PCP and follow-up for psych issues # Acute hyponatremia present on admission. Ongoing. - Likely hypovolemic hyponatremia with excess free water replacement. - Isotonic crystalloid - Follow BMP # Acute sinus tachycardia present on admission, ongoing. - Sinus tachycardia due to sepsis; some degree of alcohol withdrawal possible. - Fluid resuscitation Resolving, stable and/or chronic problems: Chronic tobacco. Abuse, present on admission -- Nicotine patches are ordered Chronic asthma: Stable -- Continue patient's home albuterol, Flovent Alcohol abuse chronic, present on admission active - Social work for substance dependency evaluation when stable Dispo: 2-4 days pending above issues VTE Mechanical Devices: Intermittant Pneumatic CD Resuscitation Status: CPR: Attempt Resuscitation Vipin Elena MD Apr 08, 2017 11:40
--- NOTE | 2017-04-08 12:35 | NUR ---
Wound Care Wound evaluation orders received from Dr Mcdaniels. 26 yo male admitted with infectious process at his right lower leg/foot. Surgical debridement of necrotizing tissue performed by Dr Kofi LAINEZ on 04/03. Dressing taken down at bedside today to reveal an open full thickness right medial calf/ankle surgical wound which measures 30cm x 7cm with undermining of 3-5 cm at both anterior and posterior skin edges and a depth of approximately 1.5 cm. Retention sutures are visualized, drainage is serosanquinous and moderate, wound base is clean, viable appearing fascia. Dr Mcdaniels present to inspect wound and elected to remove retention sutures at bedside after packing removal to facilitate NPWT placement. Wound was copiously irrigated with saline and NPWT with 2 pieces of black foam was initiated with a good seal attained at 125 mmhg continuous therapy. Leg was then wrapped with kerlix to protect primarily closed lateral calf/ankle wound. Dr Mcdaniels may elect to take patient back to OR for another washout on if warranted, NPWT will need to be changed at that time OR or no OR. Patient tolerated treatment, questions were answered.
--- NOTE | 2017-04-08 17:01 | PCM.PNPOD ---
Subjective Date of Service: Apr 08, 2017 Date of Service: Apr 08, 2017 Visit Information: Reason for Visit Ams,Uti,Right Ankle Abscess Surgery/Surgery Date Post-Op Day # 2 Date of Admission: Apr 02, 2017 at 13:13 Hospital Day # Subjective: 26-year-old male evaluated resting comfortably in bed with necrotizing fasciitis of the right lower extremity. Patient denies any new issues overnight patient complains of continued discomfort of his right lower extremity however significantly decreased from his previous evaluation. Postop General: No Complaints Gastrointestinal: Good Appetite Objective Vital Sign - Last Date Time Temp Pulse Resp B/P Pulse Ox O2 Delivery O2 Flow Rate FiO2 04/08/17 13:00 86 20 95 Room Air 04/08/17 12:58 36.5 150/86 04/06/17 09:28 10 Intake and Output 04/07/17 04/07/17 04/08/17 Cumulative From/Thru 15:00 23:00 07:00 04/02/17 10:50 - 04/08/17 06:09 Intake Total 1680 ml 2417 ml 1058 ml 81043.67 ml Output Total 4550 ml 27973 ml Balance 1680 ml -2133 ml 1058 ml 6611.67 ml Intake Oral 1080 ml 5650 ml IV Total 1680 ml 1337 ml 1058 ml 89677.67 ml Output Urine Total 4550 ml 78443 ml Estimated Blood Loss 115 ml # Voids 2 # Bowel Movements 0 1 Result Diagram: 04/08/17 0452 04/08/17 0452 Lab Test 04/02/17 11:26 04/02/17 12:30 04/02/17 13:28 04/02/17 15:43 Osmolality 295 (275-300) Thyroid Stimulating Hormone (TSH) 0.400uIU/mL (0.450-4.500) Streptozyme 45.0IU/mL (0.0-200.0) Urine Color Yellow (YELLOW) Urine Appearance Clear (CLEAR,HAZY) Urine pH 6.0 (5.0-8.0) Urine Specific [place] 1.010 (1.003-1.035) Urine Protein 100mg/dL (NEG,TRACE) Urine Glucose (UA) Negativemg/dL (NEGATIVE) Urine Ketones Negativemg/dL (NEGATIVE) Urine Occult Blood Moderate (NEGATIVE) Urine Nitrite Negative (NEGATIVE) Urine Bilirubin Small (NEGATIVE) Urine Ictotest Pos (Negative) Urine Urobilinogen 4.0mg/dL (NORMAL) Urine Leukocyte Esterase Negative (NEGATIVE) Urine RBC 0-2/hpf (0-2) Urine WBC 0-5/hpf (0-5) Urine Epithelial Cells Occasional/hpf (NONE-MOD) Urine Crystals None seen (NONE SEEN) Urine Bacteria Few/hpf (NONE-FEW) Urine Hyaline Casts None/lpf (NONE) Urine Granular Casts None seen (NONE SEEN) Urine Waxy Casts None seen (NONE SEEN) Urine Red Blood Cell Casts None seen (NONE SEEN) Urine White Blood Cell Casts None seen (NONE SEEN) Urine Mucus None seen (None Seen) Urine Trichomonas None seen (NONE SEEN) Urine Yeast None (NONE SEEN) Urinalysis Comment None Urine Culture Reflexed Not indicated Hold Urine Received (Received) Urine Osmolality 445mOs/kH2O (250-1200) Urine Random Sodium < 10mEq/L Cortisol 16.8ug/dL (.) Test 04/03/17 00:13 04/03/17 06:44 04/04/17 02:50 04/07/17 08:04 Lactic Acid Level 1.5mmol/L (0.4-2.0) Erythrocyte Sedimentation Rate 55mm/hr (0-15) Total Bilirubin 1.3mg/dL (0.0-1.2) Aspartate Amino Transf (AST/SGOT) 28U/L (0-50) Alanine Aminotransferase (ALT/SGPT) 41U/L (0-44) Alkaline Phosphatase 207U/L (25-150) Total Protein 4.8g/dL (6.4-8.4) Albumin 2.3g/dL (3.4-5.0) Hepatitis C Antibody >11.0s/co ratio Metamyelocytes % 2% (0-0) Test 04/08/17 04:52 04/08/17 10:55 Neutrophils (%) (Auto) 68% (40-74) Lymphocytes (%) (Auto) 20% (14-46) Monocytes (%) (Auto) 5% (4-12) Eosinophils (%) (Auto) 4% (0-5) Basophils (%) (Auto) 0% (0-3) Band Neutrophils % 3% (1-5) Prothrombin Time 10.5sec (8.1-12.5) Prothromb Time International Ratio 0.98ratio Activated Partial Thromboplast Time 26.7sec (22.8-33.0) Sodium Level 132mEq/L (134-144) Potassium Level 5.2mEq/L (3.5-5.2) Chloride Level 97mEq/L (97-108) Carbon Dioxide Level 23mmol/L (18-29) Blood Urea Nitrogen 14mg/dL (6-20) Creatinine 0.55mg/dL (0.76-1.27) Estimat Glomerular Filtration Rate 193mL/min (>59) Glucose Level 120mg/dL (60-99) Calcium Level 8.2mg/dL (8.5-10.1) Magnesium Level 1.9mg/dL (1.6-2.6) C-Reactive Protein 2.9mg/dL (0.0-0.5) Exam General: Alert, Oriented X3, Cooperative, Mild Distress Lungs: Clear to Auscultation, Normal Air Movement Lower Extremities: Right: Edema localized (significant improvement since surgery yesterday. The patella is actually visible, significant reduction of erythema as well) Extremity warm Lower Extremity Pulses: Palpable: Right Dorsalis Pedis Right Posterior Tibal Podiatry WOUND : Wound Location/Description Right medial ankle incision and drainage incision approximately 30 cm in length and 5 cm in width with multiple retention sutures placed there is no surrounding erythema no malodor. Mild serous drainage is noted. There is no exposed bone or tendon. Deep tissue appears healthy without any signs of necrosis to the tarsal tunnel. Superficial skin necrosis is present at the distal portion of the incision. Surgical Cast or Splint: None Assessment & Plan Impression Improving necrotizing fasciitis of the right lower extremity Problems: (1) Necrotizing fasciitis due to Streptococcus pyogenes Plan: Patient continues to improve daily. Dressing was removed today and a wound VAC was applied with the aid of the wound care service. No complications occurred during the placement of the wound VAC which incorporated black granufoam dressing. Negative pressure wound therapy was applied at 125 mmHg and continuous pressure therapy. Maintain strict nonweightbearing to the right lower extremity Plan for return to the operating room , 04/10/2017 for washout and final debridement with potential partial wound closure Status: Acute ICD Code: M72.6 Armando Mcdaniels DPM Apr 08, 2017 17:01
--- NOTE | 2017-04-08 17:32 | NUR ---
Social Work- Continued D/C Planning Data: EMR reviewed. Pt on day 6 of hospitalization. Pt discussed in multidisciplinary rounds. Pt is not medically stable for d/c at this time, likely to return to OR and will have watermelon inspector wound care needs at d/c. CD assessment order received. TYSON met with pt alone at bedside regarding substance use. Pt reports smoking heroin, meth, and drinking etoh. CDP role explained. Pt agreeable to meet with CDP and is interested in inpt treatment. Pt reports being very motivated to stop using and is aware of the negative health consequences that have come from his use. Pt reports that he has access to lots of people who use recreationally and that it will be hard to avoid this at home. SW agrees. Pt denies that his spouse uses. ADALBERTO completed and CD assessment deferred to CDP. Since pt is currently uninsured, this may be a barrier to inpt tx. TYSON discussed this with pt and encouraged pt to consider IOP sliding scale programs until pt is able to access inpt tx. CDP will be able to assist pt in navigating this as well. TYSON met with pt and Osmani [phone] (they are legally ) at bedside regarding insurance and d/c plan. Podiatry entered room during conversation and informed pt that he will require watermelon inspector wound care at d/c, ideally with a wound VAC but it is understood that insurance is a barrier to this. 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 Osmani reports he has [place] insurance through his job, but the spousal premium is approximately $800 each month to add pt and this is cost prohibitive. Osmani states that due to budget changes at his job his income could decrease by 40% in the next month but he will likely be able to keep his current healthcare. Per [facility] notes, pt is over resourced for [facility] given his joint income with his . Pt himself is currently unemployed. TYSON explained the marketplace, provided [place] [facility] information, and encouraged pt and to consider various insurance options given pt's chronic health needs at d/c. Pt and encouraged to engage with Patient Financial Services (information showing in Patient Guide) at the hospital in addition to completing [employer] Application which will cover pt's outpt wound care if they qualify. Pt and agreeable. SW encouraged future contact by cell phone, all updated and agreeable to plan. Pt is likely to d/c home with his to assist with wound care in addition to outpt wound care follow up. Unknown if pt will have insurance or the resources to fund a home wound VAC or home health services. SW will continue to follow. Assessment: Pt who will require assisted wound care at d/c and has no insurance. Plan: Pt is likely to d/c home with his to assist with wound care in addition to outpt wound care follow up. Unknown at this time if pt will have insurance or the resources to fund a home wound VAC or home health services. SW will continue to follow. JULIO CESAR Belle
--- NOTE | 2017-04-08 18:21 | NUR ---
Pain Management Pain managed by alternating between 10mg Oxycodone and 650mg acetaminophen and 1mg Dilaudid. Wound vac in place. Patient denied nausea this shift. Patient repositions self for comfort. Call light and tray table within reach. Will continue to monitor patient hourly.
[2017-04-09] VITALS (7 sets, daily range): BP systolic 135–151; BP diastolic 72–83; PULSE 80–91; RESP 16–18; O2SAT 97–99
[2017-04-09] MEDS: Heparin 5,000 Unit/mL Inj SUBQ SCH ×3 (01:41→17:31)
[2017-04-09] MEDS: Clindamycin Inj 900 MG in IV Premix 1 EACH IV SCH ×3 (01:42→17:24)
[2017-04-09] MEDS: DEXTROSE 5% IV SCH ×6 (01:42→23:20)
[2017-04-09] MEDS: PENICILLIN K IV SCH ×6 (01:42→23:20)
[2017-04-09] MEDS: HYDROmorphone 0.5 mg/0.5 mL iSecure Syringe IVPUSH PRN ×5 (05:02→23:08)
[2017-04-09] MEDS: 0.9% Sodium Chloride 1,000 ML IV SCH ×2 (05:02→17:23)
--- NOTE | 2017-04-09 06:10 | NUR ---
Anxiety/ pain Patient c/o anxiety at start of shift, PRN effective. Pain is at tolerable level with current PRN's. Tolerating ABX well with no noted ASE. Will continue to monitor. Intentional rounding.
[2017-04-09 08:15] LABS: Cryptococcal Ag Negative (Negative)
[2017-04-09] MEDS: Multivit-Miner-Folic Acid-Iron Tablet PO SCH (09:16)
[2017-04-09] MEDS: Fluticasone-Salmeterol 100-50 Inhaler INHALATION SCH ×2 (09:28→20:03)
[2017-04-09] MEDS: chlordiazePOXIDE 25 mg Capsule PO SCH ×2 (10:10→21:25)
--- NOTE | 2017-04-09 12:15 | PCM.PNMED ---
Subjective Date of Service Apr 09, 2017 Subjective Wound VAC placed. Pain controlled. going to OR tomorrow for final debridement Exam Vital Signs Vital Sign - Last Date Time Temp Pulse Resp B/P Pulse Ox O2 Delivery O2 Flow Rate FiO2 04/09/17 11:00 80 04/09/17 08:39 36.7 18 151/83 97 Room Air 04/06/17 09:28 10 Intake and Output 04/08/17 04/08/17 04/09/17 Cumulative From/Thru 15:00 23:00 07:00 04/02/17 10:50 - 04/09/17 06:14 Intake Total 1200 ml 2724 ml 1672 ml 83826.67 ml Output Total 3950 ml 4850 ml 2100 ml 98254 ml Balance -2750 ml -2126 ml -428 ml 1307.67 ml Intake Oral 1200 ml 1272 ml 1672 ml 9794 ml IV Total 1452 ml 85335.67 ml Output Urine Total 3950 ml 4850 ml 2100 ml 74184 ml Estimated Blood Loss 115 ml # Voids 9 11 # Bowel Movements 0 1 0 2 Exam General: Alert, Cooperative, No Acute Distress Head: Normal Eyes: Scleral Anicteric Mouth: Mucous Membr Moist/[place], oral thrush Neck: Supple Chest & Lungs: Chest Wall Normal, Clear to auscultation & percussion Cardiovascular: Regular Rate/Rhythm Abdomen: Non-tender, Non-distended, Normoactive bowel tones, Soft Extremities: Other (Right lower extremity bandage (c/d/i)) Neurological: Grossly Neurologically Intact, Normal Speech Additional Information: Psych: Calm, appropriate IVs and Medications Medications Reviewed: Medications were reviewed in detail Lab and Diagnostics Result Diagram: 04/08/17 0452 04/08/17 0452 X-Rays, CTs and MRIs PROCEDURE: X-RAY RIGHT ANKLE, MINIMUM THREE VIEWS ([id number]) IMPRESSION: Lateral soft tissue swelling. Dictated by: Real Magallanes M.D. on 04/02/2017 at 11:53 . Additional Diagnostics US Echo 04/03 Interpretation Summary The left ventricle is normal in size. The left ventricular ejection fraction is normal. The ejection fraction is estimated to be 60-65%. There are no focal wall motion abnormalities. The right ventricle is borderline dilated. The right ventricular systolic function is normal. The right ventricular systolic pressure is estimated at least 43 mmHg assuming a right atrial pressure of 8 mm Hg. The left atrium is moderately dilated. The right atrium is moderate to severely dilated. There is no significant valvular heart disease. The aortic root is normal size. There is a trace loculated pericardial effusion. Assessment & Plan 26-year-old male with history of alcohol and opioid use presents with acute necrotizing group A beta-hemolytic strep soft tissue infection of his right lower extremity, and alcohol withdrawal. # Necrotizing fasciitis/Group A beta-hemolytic strep soft tissue infection of right foot, acute, present on admission. - Initially vancomycin, Zosyn, clindamycin. Now on high-dose penicillin G. And clindamycin - MRSA nasal swab was negative. - Aso titers was normal. Wound cultures 2 positive for GABS. - MRI of the right foot, but patient could not handle MRI due to anxiety.Plain films did not reveal osteomyelitis changes. - Blood cultures are negative - TTE was done on 04/03 showed concern for left atrial dilation, but no vegetation. - Has underwent daily surgical debridement 3. to OR for final debridement on - wound VAC placemed on 04/08 - Continue IV Dilaudid if needed for severe pain, otherwise convert to by mouth oxycodone for pain control -will give a dose of oritavancin 1200mg and continue po clindamycin 300mg qid for 1 week up on discharge per ID . Follow-up with ID on April 16 # suspected HIV Infection , new diagnosis, not yet revealed to patient awaiting confirmatory test -prelim test reportedly positive for HIV, awaiting confirmatory test results. Will education counselor patient once confirmatory test is available -toxo IgG elevated. Denies any headache. No neuro deficits. Awaiting CD4 count and confirmatory HIV test.Dr Spencer will follow up on Apr 16 and decide on toxo prophylaxis # Acute sepsis secondary to soft tissue infection right foot, present on admission. Resolved - SIRS criteria secondary to tachycardia, leukocytosis, local infection. Lactic acid was 5.3 then 1.5 with hydration # Hepatitis C infection. Likely chronic. - Apparently a new diagnosis. No acute increase in transaminase. - Monitor clinically -viral load sent ,follow up with ID or GI outpatient #Oral candidiasis -Continue fluconazole IV -Fluconazole by mouth upon discharge to complete 2 weeks treatment # Acute alcohol withdrawal, present on admission. - Baseline consumption of 1 quart vodka per day. - CIWA protocol, benzodiazepine, thiamine, hydration, electrolyte supplementation # IV drug use, chronic - Patient denies current use, his partner apparently is not so sure, ER documentation describes needles in the house. # Anxiety and depression, acute and chronic. - Initiated Sertraline on 04/06 - He will need outpatient PCP and follow-up for psych issues # Acute hyponatremia present on admission. Ongoing. - Likely hypovolemic hyponatremia with excess free water replacement. - Isotonic crystalloid - Follow BMP # Acute sinus tachycardia present on admission, ongoing. - Sinus tachycardia due to sepsis; some degree of alcohol withdrawal possible. - Fluid resuscitation Resolving, stable and/or chronic problems: Chronic tobacco. Abuse, present on admission -- Nicotine patches are ordered Chronic asthma: Stable -- Continue patient's home albuterol, Flovent Alcohol abuse chronic, present on admission active - Social work for substance dependency evaluation when stable Dispo: 2-4 days pending above issues VTE Mechanical Devices: Intermittant Pneumatic CD Resuscitation Status: CPR: Attempt Resuscitation Vipin Elena MD Apr 09, 2017 12:15
--- NOTE | 2017-04-09 19:28 | NUR ---
Pain/CIWA Pt having pain 7-9/10 during whole shift. IV and PO medications alternated and pt's foot elevated. Pt is aware of procedure tomorrow and NPO after midnight. Pt's CIWA scores ranged from 4-6 during shift. Pt declined anxiety meds. Bed in low, call light in reach, continue q1 hour rounding.
[2017-04-10] VITALS (15 sets, daily range): BP systolic 125–152; BP diastolic 64–85; PULSE 66–98; RESP 10–20; O2SAT 96–100
[2017-04-10] MEDS: Heparin 5,000 Unit/mL Inj SUBQ SCH ×3 (01:33→14:03)
[2017-04-10] MEDS: Clindamycin Inj 900 MG in IV Premix 1 EACH IV SCH ×3 (01:33→16:32)
--- NOTE | 2017-04-10 01:44 | NUR ---
Pain/Care Patient A&OX3 and pleasant. Denies CP/SOB. Complains of 7-8/10 right ankle pain. PO oxycodone, IV Dilaudid are being given to manage pain. At 0130 patient care has been transferred over to JOHAN Grady.
[2017-04-10] MEDS: 0.9% Sodium Chloride 1,000 ML IV SCH ×3 (02:26→20:00)
[2017-04-10] MEDS: HYDROmorphone 0.5 mg/0.5 mL iSecure Syringe IVPUSH PRN ×5 (03:40→22:07)
[2017-04-10] MEDS: PENICILLIN K IV SCH ×6 (03:41→22:00)
[2017-04-10] MEDS: DEXTROSE 5% IV SCH ×6 (03:41→22:00)
--- NOTE | 2017-04-10 05:38 | NUR ---
Pain c/o pain x2 this shift since assuming care. Prn oxycodone and Dilaudid alternated and effective between doses.
[2017-04-10 07:36] LABS: BASOPHILS % (AUTO) 0.3 % (0-3); EOSINOPHILS % (AUTO) 2.6 % (0-5); MONOCYTES % (AUTO) 8.7 % (4-12); Mean Corpuscular Hemoglobin 30.7 pg (27.0-35.0); Mean Corpuscular Volume 93.7 fL (81-100); NEUTROPHILS % (AUTO) 60.7 % (40-74); Platelet Count 804 bil/L (150-400)
[2017-04-10] MEDS: Fluticasone-Salmeterol 100-50 Inhaler INHALATION SCH ×2 (10:21→22:01)
[2017-04-10] MEDS: chlordiazePOXIDE 25 mg Capsule PO SCH ×2 (10:24→22:00)
[2017-04-10] MEDS: Multivit-Miner-Folic Acid-Iron Tablet PO SCH (10:24)
--- NOTE | 2017-04-10 13:55 | PCM.PNMED ---
Subjective Date of Service Apr 10, 2017 Subjective No new complaints of events. Pain controlled. Going to OR for final debridement. Exam Vital Signs Vital Sign - Last Date Time Temp Pulse Resp B/P Pulse Ox O2 Delivery O2 Flow Rate FiO2 04/10/17 12:01 36.8 88 20 132/84 99 Room Air 04/06/17 09:28 10 Intake and Output 04/09/17 04/09/17 04/10/17 Cumulative From/Thru 15:00 23:00 07:00 04/02/17 10:50 - 04/10/17 06:44 Intake Total 3775 ml 1000 ml 71833.67 ml Output Total 4300 ml 2750 ml 98266 ml Balance -525 ml -1750 ml -967.33 ml Intake Oral 940 ml 1000 ml 75633 ml IV Total 2835 ml 61160.67 ml Output Urine Total 4300 ml 2750 ml 80901 ml Estimated Blood Loss 115 ml # Voids 11 # Bowel Movements 0 0 2 Exam General: Alert, Cooperative, No Acute Distress Head: Normal Eyes: Scleral Anicteric Mouth: Mucous Membr Moist/[place], oral thrush Neck: Supple Chest & Lungs: Chest Wall Normal, Clear to auscultation & percussion Cardiovascular: Regular Rate/Rhythm Abdomen: Non-tender, Non-distended, Normoactive bowel tones, Soft Extremities: Other (Right lower extremity bandage (c/d/i)) Neurological: Grossly Neurologically Intact, Normal Speech Additional Information: Psych: Calm, appropriate IVs and Medications Medications Reviewed: Medications were reviewed in detail Lab and Diagnostics Result Diagram: 04/10/17 0515 04/10/17 0515 X-Rays, CTs and MRIs PROCEDURE: X-RAY RIGHT ANKLE, MINIMUM THREE VIEWS ([id number]) IMPRESSION: Lateral soft tissue swelling. Dictated by: Real Magallanes M.D. on 04/02/2017 at 11:53 . Additional Diagnostics US Echo 04/03 Interpretation Summary The left ventricle is normal in size. The left ventricular ejection fraction is normal. The ejection fraction is estimated to be 60-65%. There are no focal wall motion abnormalities. The right ventricle is borderline dilated. The right ventricular systolic function is normal. The right ventricular systolic pressure is estimated at least 43 mmHg assuming a right atrial pressure of 8 mm Hg. The left atrium is moderately dilated. The right atrium is moderate to severely dilated. There is no significant valvular heart disease. The aortic root is normal size. There is a trace loculated pericardial effusion. Assessment & Plan 26-year-old male with history of alcohol and opioid use presents with acute necrotizing group A beta-hemolytic strep soft tissue infection of his right lower extremity, and alcohol withdrawal. # Necrotizing fasciitis/Group A beta-hemolytic strep soft tissue infection of right foot, acute, present on admission. - Initially vancomycin, Zosyn, clindamycin. Now on high-dose penicillin G. And clindamycin - MRSA nasal swab was negative. - Aso titers was normal. Wound cultures 2 positive for GABS. - MRI of the right foot, but patient could not handle MRI due to anxiety.Plain films did not reveal osteomyelitis changes. - Blood cultures are negative - TTE was done on 04/03 showed left atrial dilation, but no vegetation. - Has underwent daily surgical debridement 3. to OR for final debridement today 04/10 - wound VAC placed on 04/08. Outpatient wound care upon discharge - Continue IV Dilaudid if needed for severe pain, otherwise convert to by mouth oxycodone for pain control -will give a dose of oritavancin 1200mg and continue po clindamycin 300mg qid for 1 week up on discharge per ID . Follow-up with ID on April 16 # suspected HIV Infection , new diagnosis, not yet revealed to patient awaiting confirmatory test -prelim test reportedly positive for HIV, awaiting confirmatory test results. Will addictions counselor assistant patient once confirmatory test is available -toxo IgG elevated. Denies any headache. No neuro deficits. CD4 count 632.viral load 8000. Dr Spencer will follow up on Apr 16 # Acute sepsis secondary to soft tissue infection right foot, present on admission. Resolved - SIRS criteria secondary to tachycardia, leukocytosis, local infection. Lactic acid was 5.3 then 1.5 with hydration # Hepatitis C infection. Likely chronic. - Apparently a new diagnosis. No acute increase in transaminase. - Monitor clinically -viral load sent ,follow up with ID or GI outpatient #Oral candidiasis -Continue fluconazole IV -Fluconazole by mouth upon discharge to complete 2 weeks treatment # Acute alcohol withdrawal, present on admission. - Baseline consumption of 1 quart vodka per day. - CIWA protocol, benzodiazepine, thiamine, hydration, electrolyte supplementation # IV drug use, chronic - Patient denies current use, his partner apparently is not so sure, ER documentation describes needles in the house. # Anxiety and depression, acute and chronic. - Initiated Sertraline on 04/06 - He will need outpatient PCP and follow-up for psych issues # Acute hyponatremia present on admission. Ongoing. - Likely hypovolemic hyponatremia with excess free water replacement. # Acute sinus tachycardia present on admission, ongoing. - Sinus tachycardia due to sepsis; some degree of alcohol withdrawal possible. - Fluid resuscitation Resolving, stable and/or chronic problems: Chronic tobacco. Abuse, present on admission -- Nicotine patches are ordered Chronic asthma: Stable -- Continue patient's home albuterol, Flovent Alcohol abuse chronic, present on admission active - Social work for substance dependency evaluation Dispo: Tomorrow VTE Mechanical Devices: Intermittant Pneumatic CD Resuscitation Status: CPR: Attempt Resuscitation Vipin Elena MD Apr 10, 2017 13:55
[2017-04-10] MEDS ORDERED: HYDROmorphone 1 mg/mL Inj ONE (14:42)
[2017-04-10] MEDS ORDERED: Propofol 10,000 mCg/mL 20 mL Inj ONE (14:42)
[2017-04-10] MEDS ORDERED: Ondansetron 2 mg/mL 2 mL Inj ONE (14:42)
[2017-04-10] MEDS ORDERED: fentaNYL-PF 50 mCg/mL 2 mL Inj ONE (14:42)
--- NOTE | 2017-04-10 17:36 | NUR ---
to OR for possible closure right ankle wound
--- NOTE | 2017-04-10 17:38 | PCM.HPANE ---
Patient Data Date of Service: Apr 10, 2017 (9505) Surgeon Admitting Provider:Lia Cox DO Attending Provider:Vipin Elena MD Primary Care Physician:Breanna Other Provider: Reason for Visit Ams,Uti,Right Ankle Abscess AMS,UTI,RIGHT ANKLE ABSCESS Ht/WT & BMI Height (Feet): 6 Height (Inches): 0.00 Weight (Kilograms): 82.300 Body Mass Index 21.44 Allergies Coded Allergies: No Known Allergies (Unverified , 04/02/17) Past Anesthesia History Anesthesia History: Denies:: Abnormal Airway, Anesthesia Reactions, Difficult Intubation Diabetes History Hx Diabetes?: No MRSA MRSA: No Medications Hypertension Medication: No Home Meds Incl Beta Anca: No Reported Medications Albuterol HFA (Proair HFA)8.5 Gm Hfa.aer.ad2 Puffs INHALATION Q4H PRN For Shortness of Breath 04/02/17 Fluticasone/Salmeterol (Advair Hfa 115-21 Mcg Inhaler)12 Gm Hfa.aer.ad1 Puff IH BID 04/02/17 History History of ENT Problems?: No HEENT History: Denies:: Abnormal Airway Cataracts Difficult Intubation Dysphagia Glaucoma Hearing Problem Sinus Problem TMJ Denture Type: None Teeth Condition: Within Normal Limits Hx of Heart Problems?: No Cardiovascular History: Denies:: AICD Abdominal Aortic Aneurism Atrial Fibrillation Cardiac Surgery Chest Pain Congestive Heart Failure Coronary Artery Disease Edema Heart Murmur Hypertension Irregular Heartbeat Pacemaker Peripheral Vascular Rheumatic Fever Thrombophlebitis Valvular Heart Disease Hx of Respiratory Problem?: Yes Respiratory History: Positive for:: Asthma (using rescue inhaler daily) Pneumonia Other Resp Pertinent History: wooping cough Hx Neurologic Problems?: No Neurological History: Denies:: Alzheimer's Disease CVA Dementia Dizziness Headaches Multiple Sclerosis Parkinson's Disease Peripheral Neuropathy Seizures TIA Hx of GI Problems?: No Hx of Problems?: No Male Hx: Denies:: Prostate Problems Scrotal Mass Testicular Surgery Hx Musculoskeletal Problems?: No Hx of Psycho/Social Problems?: No Psycho Social History: Positive for:: Anxiety Hx Depression Denies:: Bipolar Disorder Suicide Attempt Hx Surgeries?: No Hx Any Other Health Problems?: No Other History: Denies:: Cancer Hospitalization Thyroid Disease History Blood Transfusions: Positive for:: Accept Blood Products? Denies:: Blood Transfusions Hx Diabetes: No Occupation: unemployed Hx Alcohol Use: Yes (a 5th of vodka daily)Alcoholic Drinks Per Day: states drinks 1/5 daily Hx Substance Use: Yes (IV heroin) Smoking Status: Current Every Day Smoker (half pack per day) Have You Smoked inLast 12 mo: YesApprox How Many Cigarettes/day: 1/2 pack per day Stop/Bang Treated for Sleep Apnea?: No Do You Have a CPAP Machine?: No S-Snoring: Do You Snore Loudly: No T-Tired: feel tired, fatigued: No O-Obsered: Observed not breath: No P-Blood Pressure: treated: No B- Body Mass Index > 35 kg/m2: No A- Age over 50: No N- Neck Large Circumference: No G- Gender Male: Yes KORY Total Score: 1 KORY Risk Assessment: Low Risk, <3 Yes Risk Assessment Category Category 1A: Patient has history of documented sleep apnea, and HAS NOT received any narcotic, sedative or anesthesia administration during this stay. Category 1B: Patient has history of documented sleep apnea, and HAS received any narcotic , sedative or anesthesia administration during this stay Category 2: Patient has SUSPECTED Obstructive Sleep Apnea, and HAS received any narcotic , sedative or anesthesia administration during this stay. Category 3: Patient has SUSPECTED Obstructive Sleep Apnea and HAS NOT received narcotic, sedative or anesthesia administration during this stay. Category 4: Outpatient in Procedural Areas with known sleep apnea or who screen positive for High Risk via the STOP/BANG questionnaire. Low Risk, <3 Yes Exam Exam Vital Signs Vital Signs Date Time Temp Pulse Resp B/P Pulse Ox O2 Delivery O2 Flow Rate FiO2 04/10/17 12:01 36.8 88 20 132/84 99 Room Air 04/10/17 11:22 91 General Appearance: Alert, Cooperative, No Acute Distress HEENT/AIRWAY: MP 1, Neck Movement (from), Mouth Opening (3 fb, narrow OP) Lungs: Clear to Auscultation, Normal Air Movement Heart: No Murmurs/Rubs/Gallops, Other (tachycardic, regular) Meds/Labs/Diagnostics Labs Test 04/02/17 11:26 04/02/17 12:30 04/02/17 13:28 04/02/17 15:43 Osmolality 295 (275-300) Thyroid Stimulating Hormone (TSH) 0.400uIU/mL (0.450-4.500) Streptozyme 45.0IU/mL (0.0-200.0) Urine Color Yellow (YELLOW) Urine Appearance Clear (CLEAR,HAZY) Urine pH 6.0 (5.0-8.0) Urine Specific [place] 1.010 (1.003-1.035) Urine Protein 100mg/dL (NEG,TRACE) Urine Glucose (UA) Negativemg/dL (NEGATIVE) Urine Ketones Negativemg/dL (NEGATIVE) Urine Occult Blood Moderate (NEGATIVE) Urine Nitrite Negative (NEGATIVE) Urine Bilirubin Small (NEGATIVE) Urine Ictotest Pos (Negative) Urine Urobilinogen 4.0mg/dL (NORMAL) Urine Leukocyte Esterase Negative (NEGATIVE) Urine RBC 0-2/hpf (0-2) Urine WBC 0-5/hpf (0-5) Urine Epithelial Cells Occasional/hpf (NONE-MOD) Urine Crystals None seen (NONE SEEN) Urine Bacteria Few/hpf (NONE-FEW) Urine Hyaline Casts None/lpf (NONE) Urine Granular Casts None seen (NONE SEEN) Urine Waxy Casts None seen (NONE SEEN) Urine Red Blood Cell Casts None seen (NONE SEEN) Urine White Blood Cell Casts None seen (NONE SEEN) Urine Mucus None seen (None Seen) Urine Trichomonas None seen (NONE SEEN) Urine Yeast None (NONE SEEN) Urinalysis Comment None Urine Culture Reflexed Not indicated Hold Urine Received (Received) Urine Osmolality 445mOs/kH2O (250-1200) Urine Random Sodium < 10mEq/L Cortisol 16.8ug/dL (.) Test 04/03/17 00:13 04/03/17 06:44 04/04/17 02:50 04/07/17 08:04 Lactic Acid Level 1.5mmol/L (0.4-2.0) Erythrocyte Sedimentation Rate 55mm/hr (0-15) Total Bilirubin 1.3mg/dL (0.0-1.2) Aspartate Amino Transf (AST/SGOT) 28U/L (0-50) Alanine Aminotransferase (ALT/SGPT) 41U/L (0-44) Alkaline Phosphatase 207U/L (25-150) Total Protein 4.8g/dL (6.4-8.4) Albumin 2.3g/dL (3.4-5.0) Hepatitis C Antibody >11.0s/co ratio HIV (1&2) Ag and Ab, 4th Generation Reactive HIV (1&2) Ab Differentiation Comment HIV-1 Ab Differentiation Positive HIV-2 Ab Differentiation Negative Metamyelocytes % 2% (0-0) Test 04/08/17 04:52 04/08/17 10:55 04/10/17 05:15 Band Neutrophils % 3% (1-5) Prothrombin Time 10.5sec (8.1-12.5) Prothromb Time International Ratio 0.98ratio Activated Partial Thromboplast Time 26.7sec (22.8-33.0) Magnesium Level 1.9mg/dL (1.6-2.6) Absolute Lymphocytes (auto) 1.8x10E3/uL (0.7-3.1) Absolute Monocytes (auto) 0.7x10E3/uL (0.1-0.9) Absolute Eosinophils (auto) 0.2x10E3/uL (0.0-0.4) Absolute Basophils (auto) 0.0x10E3/uL (0.0-0.2) Neutrophils % 74% (.) Lymphocytes % 14% (.) Monocytes % 6% (.) Eosinophils % 2% (.) Basophils % 0% (.) Immature Granulocytes 4% (.) Absolute Neutrophil 9.1x10E3/uL (1.4-7.0) Nucleated Red Blood Cells (.) Immature Blood Cells (.) Hematology Comments (.) C-Reactive Protein 2.9mg/dL (0.0-0.5) Absolute Immature Gran (Cell Imm) 0.4x10E3/uL (0.0-0.1) Percent CD4 Cells 35.1% (30.8-58.5) Absolute CD4 Count 632/uL (359-1519) T-Lymphocyte CD4/CD8 Ratio 0.94 (0.92-3.72) CD8 T-Cytotoxic/Suppressor of CD3+ 671/uL (109-897) Percent CD8 Cells 37.3% (12.0-35.5) Rapid Plasma Reagin Non reactive (Non Reactive) Cryptococcus Antigen Negative (Negative) Hepatitis A Antibody Total Negative (Negative) Hepatitis B Surface Antigen Negative (Negative) Hepatitis B Surface Antibody Non reactive (.) Hepatitis B Core Total Antibody Negative (Negative) HIV-1 RNA (PCR) 8430copies/mL (.) HIV-1 RNA (PCR) log10 Value 3.926 (.) Toxoplasma gondii IgG Antibody 69.4IU/mL (0.0-7.1) White Blood Count 7.4th/mm3 (3.8-10.1) Red Blood Count 3.48mil/mm3 (4.40-5.80) Hemoglobin 10.7g/dL (13.8-17.2) Hematocrit 32.6% (41.0-50.0) Mean Corpuscular Volume 93.7fL (81-100) Mean Corpuscular Hemoglobin 30.7pg (27.0-35.0) Mean Corpuscular Hemoglobin Concent 32.8% (32.0-37.0) Red Cell Distribution Width 14.9% (12.3-15.4) Platelet Count 804bil/L (150-400) Neutrophils (%) (Auto) 60.7% (40-74) Lymphocytes (%) (Auto) 24.0% (14-46) Monocytes (%) (Auto) 8.7% (4-12) Eosinophils (%) (Auto) 2.6% (0-5) Basophils (%) (Auto) 0.3% (0-3) Sodium Level 134mEq/L (134-144) Potassium Level 5.0mEq/L (3.5-5.2) Chloride Level 97mEq/L (97-108) Carbon Dioxide Level 25mmol/L (18-29) Blood Urea Nitrogen 14mg/dL (6-20) Creatinine 0.68mg/dL (0.76-1.27) Estimat Glomerular Filtration Rate 151mL/min (>59) Glucose Level 125mg/dL (60-99) Calcium Level 8.7mg/dL (8.5-10.1) Plan Impression Patient chart reviewed, patient interviewed and anesthestic plan with risks, benefits, and alternatives discussed, and informed consent obtained. NPO per Anesth. Guidelines: Yes ASA Physical Status: ASA3 Severe Disease Anesthetic Plan: GA Bene/Risks/Altern/Consents: Yes HP Complete Prior to Induction: Yes Stef Dent MD Apr 10, 2017 17:38
[2017-04-10] MEDS ORDERED: Lactated Ringer's 500 ML IV PRN (17:44)
[2017-04-10] MEDS ORDERED: Lactated Ringer's 1,000 ML IV SCH (17:44)
[2017-04-10] MEDS ORDERED: MetoCLOpramide 5 mg/mL 2 mL Inj IVPUSH PRN (17:45)
[2017-04-10] MEDS ORDERED: HYDROmorphone 1 mg/mL Inj IVPUSH PRN (17:45)
[2017-04-10] MEDS ORDERED: Phenylephrine 10,000 mCg/mL Inj IVPUSH PRN (17:45)
[2017-04-10] MEDS ORDERED: EPHEDrine Sulfate 50 mg/mL Inj IVPUSH PRN (17:45)
[2017-04-10] MEDS ORDERED: Dexamethasone 4 mg/mL Inj IVPUSH PRN (17:45)
[2017-04-10] MEDS ORDERED: fentaNYL-PF 50 mCg/mL 2 mL Inj IVPUSH PRN (17:45)
[2017-04-10] MEDS ORDERED: Ondansetron 2 mg/mL 2 mL Inj IVPUSH PRN (17:45)
[2017-04-10] MEDS ORDERED: Lactated Ringer's 1,000 ML IV ONE (17:53)
[2017-04-10] MEDS ORDERED: Bupivacaine-MPF 0.5% 30 mL Inj INJ ONE (18:19)
--- NOTE | 2017-04-10 18:59 | PCM.ANEP1 ---
Post Anesthesia PACU Phase 1 Assessment Vital Signs 36.0, 72, 12, 124/72, 100% Vital Signs Date Time Temp Pulse Resp B/P Pulse Ox O2 Delivery O2 Flow Rate FiO2 04/10/17 12:01 36.8 88 20 132/84 99 Room Air 04/10/17 11:22 91 Anesthetic Administered: GA Level of Alertness: Awake, talking OLSON's with Equal Strength: Yes Pain: No Pain Scale Score: 0 Nausea or Vomiting: No CV Function & Hydration Stable: Yes Airway Device: none Oxygen Delivery: Room Air Lungs: Clear to Auscultation, Normal Air Movement Dermatome Level: Full Sensation Summary uneventful GA PACU Phase 2 Assessment Complications: No Follow up Care: No Patient Instructions Provided: N/A Stef Dent MD Apr 10, 2017 18:59
--- NOTE | 2017-04-10 19:02 | PCM.PODPO ---
Podiatry Operative Report Date of Service: Apr 10, 2017 (0468) Date of Service Apr 10, 2017 Pre Operative Diagnosis abscess/cellulitis of right ankle, necrotizing fasciitis right ankle Post Operative Diagnosis Same as preoperative diagnoses Procedure Washout and debridement right lower extremity with delayed partial primary wound closure Surgeon Surgeon: Dr. Armando Mcdaniels Assistants: None Indication for Procedure Open wound right lower extremity with recent history of necrotizing fasciitis Findings 90% granular wound base with no purulent drainage noted. Preoperative right medial ankle wound measurements are 32 cm x 7 cm x 0.7 cm in depth with undermining of the proximal aspect of the incision Details of Procedure Patient identified in the pre op holding area, all comorbidities and allergies were identified and discussed. Patient transported into the OR and placed on the OR table in the supine position. General anaesthesia induced by the anaesthesia service. Attention was first paid to the right medial ankle previous incision and drainage wound. The wound base was found to be 90% granular with 10% fibrotic slough. A mild amount of serosanguineous drainage was noted. No purulent drainage was noted no malodor no surrounding erythema. No noted edema of the right lower extremity. The right lateral ankle incision is well coapted with all sutures intact and in place with no surrounding erythema or signs of infection. A #10 blade was used to debride all necrotic and nonviable soft tissue from the wound bed and skin edges. Healthy bleeding tissue was exposed. This wound was then copiously flushed with large amounts of normal saline. Number 2. 0 nylon suture was utilized to place horizontal mattress retention sutures through the proximal 20 cm of the incision which were then interspersed with 3. 0 nylon horizontal mattress type sutures to provide skin closure of the proximal portion of the incision and drainage site. The very distal aspect of the incision was also closed utilizing #2.0 and 3. 0 nylon. The original area of the patient's severe abscess directly overlying the medial tarsal tunnel was left open as skin edges are unable to approximate in this area due to soft tissue loss. The remainder of the wound measures 6.5 cm x 3.5 cm x 0.5 cm in depth. The small stab incision slightly anterior to the Achilles tendon was closed utilizing number 2. 0 nylon. This wound was then dressed with Adaptic moist to dry sterile gauze Kerlix and a minimally compressive Nii bandage. No complications occurred during this procedure. Preoperatively the patient was given a local wound block consisting of 10 mL half percent Marcaine plain with an additional 10 mL of half percent Marcaine plain injected immediately prior to dressing placement. The patient was awoken by anesthesia and transported out of the operating room. Grafts, Implants: None Complications There were no periprocedural complications identified. Condition Stable Anesthetic Administered: GA Drains: None Catheters: None Output, Estimated Blood Loss: 30 (ml) Blood Admin during surgery: No Surgical Cast or Splint: None Surgical Specimen Removed: No Specimen sent to Pathology: No Post Operative Plan Restart in patient medications per hospitalist service recs. transfer back to floors when stable. This patient is to remain nonweightbearing to the right lower extremity however he will be allowed to progress to up at [place] with the use of crutches or a walker, suggest physical therapy consultation for crutch training This patient is stable for discharge from a podiatry standpoint to outpatient care. His current dressing will remain clean dry and intact upon discharge until his follow-up visit 04/14/[address] [facility] office. Follow-up Dr. Spencer recommendations for antibiotic therapy Pain medications on discharge per hospitalist service recommendation Right lower extremity to remain elevated with ice placed posterior to the knee while the patient is seated or in bed Armando Mcdaniels DPM Apr 10, 2017 19:02 have lived in this home recently. Podiatry will continue to follow daily. Armando Mcdaniels DPM Apr 10, 2017 19:02
[2017-04-11] MEDS: Heparin 5,000 Unit/mL Inj SUBQ SCH ×2 (00:47→09:09)
[2017-04-11] MEDS: Clindamycin Inj 900 MG in IV Premix 1 EACH IV SCH ×2 (00:49→09:05)
[2017-04-11 01:33] VITALS: BP 147/66; PULSE 84; RESP 16; O2SAT 96
[2017-04-11] MEDS: PENICILLIN K IV SCH ×4 (02:17→12:04)
[2017-04-11] MEDS: DEXTROSE 5% IV SCH ×4 (02:17→12:04)
[2017-04-11] MEDS: HYDROmorphone 0.5 mg/0.5 mL iSecure Syringe IVPUSH PRN ×2 (03:00→07:29)
--- NOTE | 2017-04-11 04:15 | NUR ---
COMPUTERIZED MILL MILL RECORDER; reports: sinus rhythm.
[2017-04-11 05:51] VITALS: PULSE 87
[2017-04-11 06:10] VITALS: BP 141/68; PULSE 78; RESP 18; O2SAT 96
[2017-04-11] MEDS ORDERED: Oritavancin Diphosphate 1,200 MG in Dextrose 5% 1,000 ML IV ONE (06:55)
[2017-04-11] MEDS ORDERED: Oritavancin Diphosphate 1,200 MG in Dextrose 5% 880 ML IV ONE (07:08)
[2017-04-11] MEDS: 0.9% Sodium Chloride 1,000 ML IV SCH (07:34)
[2017-04-11] MEDS: Multivit-Miner-Folic Acid-Iron Tablet PO SCH (09:10)
[2017-04-11] MEDS: Fluticasone-Salmeterol 100-50 Inhaler INHALATION SCH (09:11)
[2017-04-11] MEDS: chlordiazePOXIDE 25 mg Capsule PO SCH (09:12)
[2017-04-11 09:20] VITALS: PULSE 107; RESP 18; O2SAT 97
--- NOTE | 2017-04-11 09:32 | PCM.DIMED ---
Discharge Instructions Date of Service Apr 11, 2017 Dates of Hospitalization Apr 02, 2017 at 13:13 Discharge Diagnosis Discharge Diagnosis # Necrotizing fasciitis/Group A beta-hemolytic strep soft tissue infection of right foot, acute, present on admission. # HIV Infection , new diagnosis, # Acute sepsis secondary to soft tissue infection right foot, present on admission. Resolved # Hepatitis C infection. new diagnosis. Likely chronic. #Oral candidiasis # Acute alcohol withdrawal, present on admission. # IV drug use, chronic # Anxiety and depression, acute and chronic. # Chronic tobacco use # Chronic asthma: Stable # Alcohol abuse chronic, present on admission Diet Discharge Diet: No restrictions Activity Discharge Activity: Limited until seen by PCP Call your provider Call your provider for: Fever or Chills, Shortness of breath, Bleeding, Chest pain, Vomitting, Excessive diarrhea, Weakness (unilateral) Patient Instructions Patient Instructions You were hospitalized due to necrotozing fascitis of right foot. You underwent multiple wound debridements. Please continue wound dressing change at home and follow up with wound care clinic . Please continue clindamycin 300mg 4 times a day for 1 week. You are newly diagnosed with HIV infection and hepatitis infection . counselled on safe sex practices . Please follow up with Dr Spencer on April 16 . Please continue fluconazole for oral thrush as prescribed . Please follow up with PCP . Follow-up Provider: Pastor Spencer MD Follow-up with PCP in: 1 week Provider: [facility] Follow-up in: 1 week Mid-level Provider (F9): Armando Mcdaniels DPM Follow-up with Mid-level in: 2 weeks Vipin Elena MD Apr 11, 2017 09:32
[2017-04-11] MEDS ORDERED: SERT50TA9 PO (10:04)
[2017-04-11] MEDS ORDERED: FLUC100T4 PO (10:04)
[2017-04-11] MEDS ORDERED: CLIN-78 PO (10:04)
[2017-04-11] MEDS ORDERED: OXYC5TAB72 PO (10:04)
[2017-04-11 10:06] VITALS: BP 121/51; PULSE 105; RESP 20; O2SAT 96
[2017-04-11 10:31] VITALS: PULSE 112
--- NOTE | 2017-04-11 11:13 | NUR ---
Social Work: Readiness for Discharge/Multidisciplinary Rounds D: EMR reviewed. Pt is on day 9 of hospitalization. Pt discussed in multidisciplinary rounds and is medically stable for discharge home today via POV and to follow-up with outpt wound care at [facility]. SW received MD order to schedule PCP follow-up appointment. Pt provided with follow-up appointment card including address, phone number, and date. No other needs identified at this time. SW will continue to follow until time of discharge. A: Pt to return home with outpt wound care at the [facility]. P: Pt to return home via POV with outpt wound care at the [facility]. SW scheduled follow-up PCP appointment, per MD order, for 04/15/17 at 10:[address] Pilo Posadas at [facility]. Pt provided with appointment card. Pt agreeable. No other needs identified at this time. SW will continue to follow until time of discharge. JULIO CESAR Gray
--- NOTE | 2017-04-11 12:29 | NUR ---
Social Work: Discharge D: EMR reviewed. Pt is on day 9 of hospitalization. Pt discussed in multidisciplinary rounds and is medically stable for discharge home today via POV and to follow-up with outpt wound care at the [facility]. TYSON received MD order to schedule PCP follow-up appointment. Pt and spouse provided with follow-up appointment card including address, phone number, and date. No other needs identified at this time. SW will continue to follow until time of discharge. A: Pt to return home with outpt wound care at the [facility]. TYSON scheduled follow-up PCP appointment, per MD order, for 04/15/17 at 10:[address] Pilo Posadas at [facility]. P: Pt to return home with spouse via POV with outpt wound care at the [facility]. TYSON scheduled follow-up PCP appointment, per MD order, for 04/15/17 at 10:[address] Pilo Posadas at [facility]. Pt and spouse provided with appointment card. Pt's spouse agreeable. Spouse asked about ALIVIA - SW updated spouse on ALIVIA denial due to spousal income. SW confirmed spouse received [employer] [facility] Application. Spouse stated he is going to research insurance plans through [place] [employer]. No other needs identified at this time. JULIO CESAR Gray
--- NOTE | 2017-04-11 12:52 | NUR ---
Inpatient Wound Nurse Dressing applied after surgery yesterday is clean, dry, and intact. No inpatient wound care required this date. This ON RN requested outpatient Wound Center appointment and after Wound Center position description manager checked with Dr. Mcdaniels, it was determined that patient will see Dr. Mcdaniels on Saturday 04/14 at 2:45 pm in his office. If, at that time, Dr. Mcdaniels wants patient seen at outpatient Wound Center, then that appointment will be made at at that time. For now, patient will see Dr. Mcdaniels in his office only. Patient updated by primary RN and appointment card provided.
--- NOTE | 2017-04-11 14:15 | NUR ---
Evaluation completed. Please go to "Notes" then click on "Assessments and Notes" (bottom left corner of screen). Then select appropriate discipline tab on top of screen.
--- NOTE | 2017-04-11 14:30 | NUR ---
Discharged home with , has f/u appt scheduled with Dr Mcdaniels for 04/15, and f/u withDr Spencer on 04/16, dressing is C/D/I, pt is very good at maintaining non wt bearing during transfers and with crutches.
--- NOTE | 2017-04-11 19:24 | PCM.DC.MED ---
Discharge Summary Date of Service Apr 11, 2017 Dates of Hospitalization Date of Hospital Admission Apr 02, 2017 at 13:13 Date of Discharge: Apr 11, 2017 Providers: Admitting Physician: Lia Cox DO Primary Care Physician: Breanna Attending Physician: Vipin Tamez MD Diagnosis at Time of Discharge Diagnosis at Time of Discharge # Necrotizing fasciitis/Group A beta-hemolytic strep soft tissue infection of right foot, acute, present on admission. # HIV Infection , new diagnosis, # Acute sepsis secondary to soft tissue infection right foot, present on admission. Resolved # Hepatitis C infection. new diagnosis. Likely chronic. #Oral candidiasis # Acute alcohol withdrawal, present on admission. # IV drug use, chronic # Anxiety and depression, acute and chronic. # Chronic tobacco use # Chronic asthma: Stable # Alcohol abuse chronic, present on admission Consultations ID Dr Spencer podiatry Dr Quigley Procedures XRay, CTs & MRIs PROCEDURE: X-RAY RIGHT ANKLE, MINIMUM THREE VIEWS ([id number]) IMPRESSION: Lateral soft tissue swelling. Dictated by: Real Magallanes M.D. on 04/02/2017 at 11:53 . Other Diagnostics US Echo 04/03 Interpretation Summary The left ventricle is normal in size. The left ventricular ejection fraction is normal. The ejection fraction is estimated to be 60-65%. There are no focal wall motion abnormalities. The right ventricle is borderline dilated. The right ventricular systolic function is normal. The right ventricular systolic pressure is estimated at least 43 mmHg assuming a right atrial pressure of 8 mm Hg. The left atrium is moderately dilated. The right atrium is moderate to severely dilated. There is no significant valvular heart disease. The aortic root is normal size. There is a trace loculated pericardial effusion. Brief History per HPI 26-year-old thin white male with past medical history of asthma, IV drug use for 2 months two years ago this presenting to the ER with swollen right ankle. He has severe erythema, tenderness associated with it. He states that it has been ongoing for 3 days and getting worse. He cannot walk at home and he using crutches to get around. He states that he had no fevers or chills. His appetite is good, he has a little bit of a headache. He states that after receiving pain medication in the ER his leg pain has come down to 6 out of 10. He denies anxiety chest pain, dyspnea, GI's problems, urinary symptoms, dizziness. He has several excoriations and healed up lee on both of his lower legs. He states that this is from fleas and mosquitoes after he camped. He also has a spot on the lateral achilles area of his right foot where a pruritic lesion can be seen. Patient denies any infections like this before. He also denies continued use of IV drugs. He does admit to smoking meth and marijuana recently but denies IV drug use of any kind. He is endorsing drinking a fifth of vodka daily. Because of pain in his leg he drank more, he drank a pint of alcoholic, beverage today. He is endorsing increased urination. In the ER urine drug screen showed positive THC, met, TCA. Ultrasound was performed and was negative for abscess. X-ray of the ankle showed no concern for osteomyelitis but showed soft tissue swelling. Lactic acid was elevated at 5.3, leukocytosis is 24K sodium is low at 127 patient was given Vanco and Zosyn. EKG showed sinus tach. Blood cultures by 2 are drawn, and wound cultures are collected and podiatric was notified. Patient is admitted to the blue team for sepsis secondary to cellulitis of right ankle Hospital Course 26-year-old male with history of alcohol and opioid use presents with acute necrotizing group A beta-hemolytic strep soft tissue infection of his right lower extremity, and alcohol withdrawal. # Necrotizing fasciitis/Group A beta-hemolytic strep soft tissue infection of right foot, acute, present on admission. - Initially teated with vancomycin, Zosyn, clindamycin. Now on high-dose penicillin G. And clindamycin.gave a dose of oritavancin 1200mg on 04/11 and continue po clindamycin 300mg qid for 1 week up on discharge per ID . Follow- up with ID on April 16 - MRSA nasal swab was negative. - Aso titers was normal. Wound cultures 2 positive for GABS. - MRI of the right foot, but patient could not handle MRI due to anxiety.Plain films did not reveal osteomyelitis changes. - Blood cultures are negative - TTE was done on 04/03 showed left atrial dilation, but no vegetation. - Has underwent daily surgical debridement 3. and final debridement on 04/10 - wound VAC placed on 04/08 and removed on 04/10. Outpatient wound care upon discharge. to do wound dressing change .follow up at wound clinic - oxycodone for pain control # HIV Infection , new diagnosis, - positive for HIV, counselled patient and at bedside .counselled on sefe sex . -toxo IgG elevated. Denies any headache. No neuro deficits. CD4 count 632.viral load 8000. Dr Spencer will follow up on Apr 16 # Acute sepsis secondary to soft tissue infection right foot, present on admission. Resolved - SIRS criteria secondary to tachycardia, leukocytosis, local infection. Lactic acid was 5.3 then 1.5 with hydration # Hepatitis C infection. Likely chronic. - Apparently a new diagnosis. No acute increase in transaminase. -viral load sent ,follow up with ID or GI outpatient #Oral candidiasis -treated with fluconazole IV -Fluconazole by mouth upon discharge to complete 2 weeks treatment.for 6 more days # Acute alcohol withdrawal, present on admission. - Baseline consumption of 1 quart vodka per day. - CIWA protocol used , benzodiazepine, thiamine, hydration, electrolyte supplementation # IV drug use, chronic - Patient denies current use, his partner apparently is not so sure, ER documentation describes needles in the house. counselled,reportedly declined SW offer of outpatient resource.counselled on HIV/HCV transmission # Anxiety and depression, acute and chronic. - Initiated Sertraline on 04/06 - He will need outpatient PCP and follow-up for psych issues -follow up with PCP at [facility] residency clinic # Acute hyponatremia present on admission. resolved - Likely hypovolemic hyponatremia with excess free water replacement. # Acute sinus tachycardia present on admission, resolved but intermittent due to pain and anxiety - Sinus tachycardia due to sepsis; some degree of alcohol withdrawal possible. - Fluid resuscitation employed Resolving, stable and/or chronic problems: Chronic tobacco. Abuse, present on admission -- Nicotine patches used Chronic asthma: Stable -- Continue patient's home albuterol, Flovent Alcohol abuse chronic, present on admission active - Social work for substance dependency evaluation Dispo: home f/u with [facility] residency clinic,Dr Spencer,wound clinic and podiatry Exam Vital Signs (Last) Date Time Temp Pulse Resp B/P Pulse Ox O2 Delivery O2 Flow Rate FiO2 04/11/17 10:31 112 04/11/17 10:06 36.4 20 121/51 96 Room Air 04/10/17 19:10 8 Exam General: Alert, Cooperative, No Acute Distress Head: Normal Eyes: Scleral Anicteric Mouth: Mucous Membr Moist/[place], oral thrush Neck: Supple Chest & Lungs: Chest Wall Normal, Clear to auscultation & percussion Cardiovascular: Regular Rate/Rhythm Abdomen: Non-tender, Non-distended, Normoactive bowel tones, Soft Extremities: Other (Right lower extremity bandage (c/d/i)) Neurological: Grossly Neurologically Intact, Normal Speech Additional Information: Psych: Calm, appropriate Test 04/02/17 11:26 04/02/17 12:30 04/02/17 13:28 04/02/17 15:43 Osmolality 295 (275-300) Thyroid Stimulating Hormone (TSH) 0.400uIU/mL (0.450-4.500) Streptozyme 45.0IU/mL (0.0-200.0) Urine Color Yellow (YELLOW) Urine Appearance Clear (CLEAR,HAZY) Urine pH 6.0 (5.0-8.0) Urine Specific [place] 1.010 (1.003-1.035) Urine Protein 100mg/dL (NEG,TRACE) Urine Glucose (UA) Negativemg/dL (NEGATIVE) Urine Ketones Negativemg/dL (NEGATIVE) Urine Occult Blood Moderate (NEGATIVE) Urine Nitrite Negative (NEGATIVE) Urine Bilirubin Small (NEGATIVE) Urine Ictotest Pos (Negative) Urine Urobilinogen 4.0mg/dL (NORMAL) Urine Leukocyte Esterase Negative (NEGATIVE) Urine RBC 0-2/hpf (0-2) Urine WBC 0-5/hpf (0-5) Urine Epithelial Cells Occasional/hpf (NONE-MOD) Urine Crystals None seen (NONE SEEN) Urine Bacteria Few/hpf (NONE-FEW) Urine Hyaline Casts None/lpf (NONE) Urine Granular Casts None seen (NONE SEEN) Urine Waxy Casts None seen (NONE SEEN) Urine Red Blood Cell Casts None seen (NONE SEEN) Urine White Blood Cell Casts None seen (NONE SEEN) Urine Mucus None seen (None Seen) Urine Trichomonas None seen (NONE SEEN) Urine Yeast None (NONE SEEN) Urinalysis Comment None Urine Culture Reflexed Not indicated Hold Urine Received (Received) Urine Osmolality 445mOs/kH2O (250-1200) Urine Random Sodium < 10mEq/L Cortisol 16.8ug/dL (.) Test 04/03/17 00:13 04/03/17 06:44 04/04/17 02:50 04/07/17 08:04 Lactic Acid Level 1.5mmol/L (0.4-2.0) Erythrocyte Sedimentation Rate 55mm/hr (0-15) Total Bilirubin 1.3mg/dL (0.0-1.2) Aspartate Amino Transf (AST/SGOT) 28U/L (0-50) Alanine Aminotransferase (ALT/SGPT) 41U/L (0-44) Alkaline Phosphatase 207U/L (25-150) Total Protein 4.8g/dL (6.4-8.4) Albumin 2.3g/dL (3.4-5.0) Hepatitis C Antibody >11.0s/co ratio HIV (1&2) Ag and Ab, 4th Generation Reactive HIV (1&2) Ab Differentiation Comment HIV-1 Ab Differentiation Positive HIV-2 Ab Differentiation Negative Metamyelocytes % 2% (0-0) Test 04/08/17 04:52 04/08/17 10:55 04/10/17 05:15 Band Neutrophils % 3% (1-5) Prothrombin Time 10.5sec (8.1-12.5) Prothromb Time International Ratio 0.98ratio Activated Partial Thromboplast Time 26.7sec (22.8-33.0) Magnesium Level 1.9mg/dL (1.6-2.6) Absolute Lymphocytes (auto) 1.8x10E3/uL (0.7-3.1) Absolute Monocytes (auto) 0.7x10E3/uL (0.1-0.9) Absolute Eosinophils (auto) 0.2x10E3/uL (0.0-0.4) Absolute Basophils (auto) 0.0x10E3/uL (0.0-0.2) Neutrophils % 74% (.) Lymphocytes % 14% (.) Monocytes % 6% (.) Eosinophils % 2% (.) Basophils % 0% (.) Immature Granulocytes 4% (.) Absolute Neutrophil 9.1x10E3/uL (1.4-7.0) Nucleated Red Blood Cells (.) Immature Blood Cells (.) Hematology Comments (.) C-Reactive Protein 2.9mg/dL (0.0-0.5) Absolute Immature Gran (Cell Imm) 0.4x10E3/uL (0.0-0.1) Percent CD4 Cells 35.1% (30.8-58.5) Absolute CD4 Count 632/uL (359-1519) T-Lymphocyte CD4/CD8 Ratio 0.94 (0.92-3.72) CD8 T-Cytotoxic/Suppressor of CD3+ 671/uL (109-897) Percent CD8 Cells 37.3% (12.0-35.5) Rapid Plasma Reagin Non reactive (Non Reactive) Cryptococcus Antigen Negative (Negative) Hepatitis A Antibody Total Negative (Negative) Hepatitis B Surface Antigen Negative (Negative) Hepatitis B Surface Antibody Non reactive (.) Hepatitis B Core Total Antibody Negative (Negative) HIV-1 RNA (PCR) 8430copies/mL (.) HIV-1 RNA (PCR) log10 Value 3.926 (.) Toxoplasma gondii IgG Antibody 69.4IU/mL (0.0-7.1) White Blood Count 7.4th/mm3 (3.8-10.1) Red Blood Count 3.48mil/mm3 (4.40-5.80) Hemoglobin 10.7g/dL (13.8-17.2) Hematocrit 32.6% (41.0-50.0) Mean Corpuscular Volume 93.7fL (81-100) Mean Corpuscular Hemoglobin 30.7pg (27.0-35.0) Mean Corpuscular Hemoglobin Concent 32.8% (32.0-37.0) Red Cell Distribution Width 14.9% (12.3-15.4) Platelet Count 804bil/L (150-400) Neutrophils (%) (Auto) 60.7% (40-74) Lymphocytes (%) (Auto) 24.0% (14-46) Monocytes (%) (Auto) 8.7% (4-12) Eosinophils (%) (Auto) 2.6% (0-5) Basophils (%) (Auto) 0.3% (0-3) Sodium Level 134mEq/L (134-144) Potassium Level 5.0mEq/L (3.5-5.2) Chloride Level 97mEq/L (97-108) Carbon Dioxide Level 25mmol/L (18-29) Blood Urea Nitrogen 14mg/dL (6-20) Creatinine 0.68mg/dL (0.76-1.27) Estimat Glomerular Filtration Rate 151mL/min (>59) Glucose Level 125mg/dL (60-99) Calcium Level 8.7mg/dL (8.5-10.1) Discharge Medications Discharge Medications Clindamycin (Clindamycin) 300 Mg Capsule 300 MG PO QID Prescribed by: VIPIN TAMEZ MD Fluconazole (Fluconazole) 100 Mg Tablet 100 MG PO DAILY Prescribed by: VIPIN TAMEZ MD Fluticasone/Salmeterol (Advair Hfa 115-21 Mcg Inhaler) 12 Gm Hfa.aer.ad 1 PUFF IH BID (Reported) Sertraline HCl (Sertraline) 50 Mg Tablet 25 MG PO HS Prescribed by: VIPIN TAMEZ MD As needed Albuterol HFA (Proair HFA) 8.5 Gm Hfa.aer.ad 2 PUFFS INHALATION Q4H PRN PRN For Shortness of Breath (Reported) oxyCODONE (oxyCODONE) 5 Mg Tablet 5-10 MG PO Q4H PRN PRN For Moderate Pain Prescribed by: VIPIN TAMEZ MD Followup Plan Disposition: home Discharge Diet: No restrictions Discharge Activity: Limited until seen by PCP Patient Instructions You were hospitalized due to necrotozing fascitis of right foot. You underwent multiple wound debridements. Please continue wound dressing change at home and follow up with wound care clinic . Please continue clindamycin 300mg 4 times a day for 1 week. You are newly diagnosed with HIV infection and hepatitis infection . counselled on safe sex practices . Please follow up with Dr Spencer on April 16 . Please continue fluconazole for oral thrush as prescribed . Please follow up with PCP . Follow-up Provider: Pastor Spencer MD Follow-up with PCP in: 1 week Provider: [facility] Follow-up in: 1 week Mid-level Provider: Armando Mcdaniels DPM Follow-up with Mid-level in: 2 weeks Time spent > 35 minutes counselling and coordinating discharge copies to: [facility] Residency [facility]; Armando Mcdaniels DPM; Pastor Spencer MD, Melaku MD Apr 11, 2017 19:24
== END 2017-04-11 14:43 | disposition home or self-care (01) | DRG 969 ==
LOC: SED 10:47 → MPC 13:13 → CCU 04-03 15:50 → PCC 04-04 18:48 → OSC 04-06 14:45
PROVIDERS: ADMIT Family Medicine; ATTEND Family Medicine
PROC: 0H9MXZX Drainage of Right Foot Skin, External Approach, Diagnostic (ICD-10-PCS; principal; 2017-04-02)
PROC: 0J9Q0ZZ Drainage of Right Foot Subcutaneous Tissue and Fascia, Open Approach (ICD-10-PCS; 2017-04-03)
PROC: 0J9N0ZZ Drainage of Right Lower Leg Subcutaneous Tissue and Fascia, Open Approach (ICD-10-PCS; 2017-04-03)
PROC: 0JBN0ZZ Excision of Right Lower Leg Subcutaneous Tissue and Fascia, Open Approach (ICD-10-PCS; 2017-04-04)
PROC: 0JBN0ZZ Excision of Right Lower Leg Subcutaneous Tissue and Fascia, Open Approach (ICD-10-PCS; 2017-04-06)
PROC: 0JBN0ZZ Excision of Right Lower Leg Subcutaneous Tissue and Fascia, Open Approach (ICD-10-PCS; 2017-04-10)
DX: A41.9 Sepsis, unspecified organism (principal); B20 Human immunodeficiency virus [HIV] disease; M72.6 Necrotizing fasciitis; F10.239 Alcohol dependence with withdrawal, unspecified; E87.2 Acidosis; E87.1 Hypo-osmolality and hyponatremia; L02.611 Cutaneous abscess of right foot; B37.0 Candidal stomatitis; B95.0 Streptococcus, group A, as the cause of diseases classified elsewhere; F41.8 Other specified anxiety disorders; F17.210 Nicotine dependence, cigarettes, uncomplicated; B18.2 Chronic viral hepatitis C; Z71.7 Human immunodeficiency virus [HIV] counseling